=== PATIENT | male | born 1950 | race Caucasian/White ===

== ENCOUNTER 2019-04-11 12:08 | Outpatient (CLI) | payer MEDICARE, OTHER, SELFPAY ==
--- NOTE | ~2019-04-11 | XR_ITS ---
EXAMINATION: XR lumbar spine 2-3V DATE: 04/11/2019 12:25 INDICATION: Back pain TECHNIQUE: Anteroposterior and lateral views of the lumbar spine, and cone-down lateral view of the l umbosacral junction were obtained. COMPARISON: CT abdomen and pelvis dated 01/03/2018 FINDINGS: Mild lower lumbar dextrocurvature measuring approximately 8 degrees between L3 and S1. 3 mm retrolist hesis L5 on S1. Vertebral body heights are normal. Moderate disc height loss with vacuum phenomena at L5-S1. Remaining disc heights are relatively preserved. Moderate facet osteoarthritis bilaterally at L4-L5 and L5-S1 with mild facet osteoarthritis in the more cephalad lumbar spine. Sacral arches are intact. Mild bilateral sacroiliac osteoarthritis. Atherosclerotic aorta. IMPRESSION: 1. Mild to moderate lower lumbar predominant spondylosis. Reviewed, dictated and finalized at location A. 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
== END 2019-04-11 12:09 | disposition home or self-care (01) ==
LOC: CHSIMG 12:12
PROVIDERS: PCP Internal Medicine; Visit Provider Internal Medicine
DX: M54.9 Dorsalgia, unspecified (principal)
CPT/HCPCS: 72100

== ENCOUNTER 2019-04-17 12:45 | Outpatient (RCR) | payer MEDICARE, OTHER, SELFPAY ==
--- NOTE | 2019-04-17 16:43 | PTOPEVAL ---
Thank you for referring this patient to [facility]. Please review, sign, date and return this plan of care ADRIÁN. I agree with and certify that the following plan of care is medically necessary. Referring Physician Date Admitting Provider: Attending Provider: Obey Pineda MD Referring Provider: *PT Outpatient Evaluation Start: 04/17/19 13:06 Freq: Status: Active Protocol: Document 04/17/19 13:07 VIDHI (Rec: 04/17/19 14:06 [email or web address] [id number]) Therapy Assessment Status Assessment Status Assessment Status Evaluation Evaluation Information Problem Diagnosis back pain Onset 02/09/19 Subjective Information Pt. reports approximately 2 Query Text:As Reported By Patient/ months of uncontrollable back Family pain. He reports that pain is at the lower back and can radiate into the mid back. He report that pain is increased most with standing in one positon or sitting in one position. He reports that he roles at night in bed and cannot sleep well due to pain. He reports that he does take ibuprofen for pain, but does not ease his pain as well as it has in the past. He reports that his goal is to decrease his back pain. Prior Level of Function Activity Level (Last 3 Months) Hand Dominance Right Activity of Daily Living Ability Independent Indoor/Home Mobility Independent Community Mobility Independent Stairs Ability Independent Functional Cognition (Planning, Shopping Independent , Taking Medications) Cooking Yes Cleaning Yes Laundry Yes Shopping Yes Driving Yes Comments Additional Prior Level of Function Pt. reports that he can no Comments longer get onto the floor without pain and needs help to get up. Pain Assessment Pain Scale Pain Scale Used Numeric (1 - 10) Self Report Pain Assessment Lower Back Reported Pain Level 5 Pain Description Aching Pain Frequency Intermittent Current Pain Intensity 5 Lowest Pain Intensity 0 Greatest Pain Intensity 9 Pain Aggravating Factors Pr
--- NOTE | 2019-05-24 14:56 | PTOPEVAL ---
Thank you for referring this patient to [facility]. Please review, sign, date and return this plan of care ADRIÁN. I agree with and certify that the following plan of care is medically necessary. Referring Physician Date Admitting Provider: Attending Provider: Obey Pineda MD Referring Provider: *PT Outpatient Evaluation Start: 04/17/19 13:06 Freq: Status: Active Protocol: Document 05/24/19 14:46 J (Rec: 05/24/19 14:55 [facility] [email or web address]) Therapy Assessment Status Assessment Status Assessment Status Re-evaluation Evaluation Information Problem Diagnosis low back pain Additional Evaluation Detail oswestry = 46% Subjective Information mr. miguel reports he feels Query Text:As Reported By Patient/ better but about the same Family lately. he reports he has less pain, but still presents with difficulty with daily activities, getting up in the mornings, and randomly at night. Pain Assessment Timing of Pain Assessment Timing of Pain Assessment Assessment Pain Scale Pain Scale Used Numeric (1 - 10) Self Report Pain Assessment Lower Back Reported Pain Level 3 Greatest Pain Intensity 5 Pain Score Pain Score 3: Self Report Cervical and Lumbar ROM Lumbar ROM Lumbar Flexion Active Mid Boo Query Text:Hands to: Lumbar Extension (0-40) 20 Query Text:Active in Degrees Lumbar Lateral Flexion Right (0-40) 25 Query Text:Active in Degrees Lumbar Lateral Flexion Left (0-40) 25 Query Text:Active in Degrees Lumbar Comments patient is unable to squat to floor to lift a weighted box with safe mechanics or stable posture. Cervical and Lumbar Muscle Testing Lumbar Strength Upper Abdominal Strength 2+Poor+ Lower Abdominal Strength 2+Poor+ Lower Extremity Muscle Strength Testing Hip Strength Bilateral Hip Flexion Strength 4+ Good + Hip Extension Strength 4 Good Hip Abduction Strength 4 Good Knee Strength Bilateral Knee Flexion Strength 5 Normal Knee Extension Strength 5 Normal Muscle Length Testing Muscle Length Testing Piriformis w/Hip Flexion >90 Degrees (R) Moderate Tightness,(L) Moderate Tightness Left Hamstring Length 35 Query Text:(90 - 90 Position) Right Hamstring Length 35 Query Text:(90 - 90 Position) PT Clinical Summary Clinical Summary Protocol: PTEVCODE PT Clinical Summary mr
== END 2019-05-24 23:59 | disposition home or self-care (01) ==
LOC: CHSPT 12:45
PROVIDERS: PCP Internal Medicine; Visit Provider Internal Medicine
DX: M54.9 Dorsalgia, unspecified (principal)
CPT/HCPCS: 97014; 97110; 97161; G0283

== ENCOUNTER 2019-05-27 06:30 | Outpatient (CLI) | payer MEDICARE, OTHER, SELFPAY ==
--- NOTE | ~2019-05-27 | MR_ITS ---
EXAMINATION: MR lumbar spine wo con DATE: 05/27/2019 07:42 INDICATION: Back pain TECHNIQUE: Magnetic resonance imaging (MRI) of the lumbar spine was performed without intravenous con trast. Sequences included sagittal T2-weighted FSE, sagittal T2-weighted FS FSE, sagittal T1-weighted FSE, and axial T2-weighted FSE. COMPARISON: Lumbar spine radiographs dated 04/11/2019 FINDINGS: 1 mm retrolisthesis L3 on L4. 4 mm retrolisthesis L5 on S1. Vertebral body heights are normal. Genius red and yellow marrow signal. No pathologic marrow replacing process. Annular fissure and severe dis c height loss at L5-S1. Disc desiccation and minimal disc height loss at L3-L4 and L4-L5. The conus m edullaris terminates at L1. There is normal signal in the caudal spinal cord. Paravertebral soft tiss ues are unremarkable. The following disc levels are specifically discussed: T12-L1: The disc does not extend beyond the endplate margin. There is mild bilateral facet joint oste oarthritis. There is no neural foraminal stenosis. There is no central canal stenosis. L1-L2: The disc does not extend beyond the endplate margin. There is mild hypertrophy of the ligament um flavum. There is mild left and mild to moderate right facet joint osteoarthritis. There is minimal right neural foraminal stenosis. There is no central canal stenosis. L2-L3: The disc does not extend beyond the endplate margin. There is mild hypertrophy of the ligament um flavum. There is mild bilateral facet joint osteoarthritis. There is minimal bilateral neural for aminal stenosis. There is no central canal stenosis. L3-L4: Disc is minimally bulging. There is hypertrophy of the ligamentum flavum. There is mild to mod erate right and mild left facet joint osteoarthritis. There is mild bilateral neural foraminal stenos is. There is mild central canal stenosis. L4-L5: The disc does not extend beyond the endplate margin. There is moderate bilateral facet joint o steoarthritis. There is mild right and mild to moderate left neural foraminal stenosis. Mild anterior bulging of the posterior epidural fat. There is mild central canal stenosis. L5-S1: Annular fissure with broad-based disc extrusion which extends from foraminal zone to foraminal zone with disc material extending up to 7 mm caudal to the level of the superior endplate of S1 in t he left paracentral region. There is mild hypertrophy of the ligamentum flavum. There is moderate jazmín ateral facet joint osteoarthritis. There is moderate bilateral neural foraminal stenosis. There is mi ld anterior bulging of the posterior epidural fat. There is altered moderate central canal stenosis. There is also narrowing of the lateral recesses, left greater than right. IMPRESSION: 1. Severe spondylosis at L5-S1 with mild to moderate spondylosis in the more cephalad lumbar spine. Reviewed, dictated and finalized at location A. IMPRESSION: 1. Severe spondylosis at L5-S1 with mild to moderate spondylosis in the more ce phalad lumbar spine.
== END 2019-05-27 06:31 | disposition home or self-care (01) ==
PROVIDERS: PCP Internal Medicine; Visit Provider Internal Medicine
DX: M54.5 Low back pain (principal)
CPT/HCPCS: 72148

== ENCOUNTER 2019-07-04 21:04 | Observation (INO) | payer MEDICARE, OTHER, SELFPAY ==
[2019-07-04 21:23] VITALS: BP 140/90; PULSE 67; RESP 13; TEMP 35.9; O2SAT 99
--- NOTE | 2019-07-04 21:36 | ECG_ITS ---
Measurements Intervals [place] Rate: 68 P: 70 MA: 176 QRS: 74 QRSD: 102 T: 69 QT: 440 QTc: 470 Interpretive Statements SINUS RHYTHM BASELINE ARTIFACT- V1 NORMAL ECG Electronically Signed On 07-05-2019 7:29:23 CDT by Daniel Jones D.O.
[2019-07-04 21:56] LABS: Basophils Absolute Auto 0.05 K/mm3 (0.00-0.10); Basophils Percent Auto 0.6 % (0.0-1.0); Eosinophils Absolute Auto 0.18 K/mm3 (0.02-0.50); Eosinophils Percent Auto 2.3 % (1.0-6.0); Hematocrit 34.8 % (37.0-46.0); Hemoglobin 12.6 g/dL (12.4-15.3); Immature Granulocyte Absolute 0.03 K/mm3 (0.00-0.00); Immature Granulocyte Percent A 0.4 % (0.0-0.0); Lymphocytes Absolute Auto 0.94 K/mm3 (1.10-4.50); Lymphocytes Percent Auto 12.1 % (18.0-42.0); Mean Corpuscular HGB Conc 36.2 g/dL (32.0-36.0); Mean Corpuscular Hemoglobin 33.4 pg (27.0-31.0); Mean Corpuscular Volume 92.3 fL (78.0-102.0); Mean Platelet Volume 7.9 fl (8.7-11.0); Monocytes Percent Auto 6.4 % (2.0-11.0); Neutrophils Absolute Auto 6.1 K/mm3 (1.7-7.2); Neutrophils Percent Auto 78.2 % (50.0-70.0); Platelet Count Result 273 K/mm3 (150-420); Red Blood Count 3.77 M/mm3 (4.70-6.10); Red Cell Distribution Width 11.7 % (11.6-14.4); White Blood Count 7.8 K/mm3 (4.8-10.8)
[2019-07-04 21:56] LABS: Add Urine Microscopic? YES; Appearance Urine Clear (Clear); Bilirubin Urine Negative (Negative); Blood Urine Negative (Negative); Color Urine Yellow (Yellow); Glucose Urine UA 1+ (Negative); Ketones Urine Negative (Negative); Leukocyte Esterase Ur Negative (Negative); Nitrate Urine Negative (Negative); Protein Urine Negative (Negative); Urobilinogen Urine 0.2 mg/dL (0.2-1.0)
[2019-07-04] MEDS: DEXTROSE 10% 250 ML 100 ML (21:59)
[2019-07-04 22:02] LABS: Bacteria Urine Trace /hpf; RBC Urine 0-2 /hpf (0-2); Squamous Epithelial Cell Urine Rare /hpf (Few); WBC Urine 0-3 /hpf (0-3)
[2019-07-04 22:10] LABS: Alanine Aminotransferase 26 U/L (16-63); Alkaline Phosphatase 113 U/L (46-116); Anion Gap 9.7 mmol/L (7-16); Aspartate Amino Transferase 26 U/L (15-37); Bilirubin,Total 0.2 mg/dL (0.00-1.00); Blood Urea Nitrogen 5 mg/dL (7-18); Calcium 8.1 mg/dL (8.5-10.1); Carbon Dioxide 32 mmol/L (21-32); Chloride 85 mmol/L (98-108); Estimated CRCL calculation 91 ml/min; Estimated Glomerular Filt Rate > 60; Osmolality Calculated 252 mOsm/kg (285-295); Potassium 2.7 mmol/L (3.5-5.1); Sodium 124 mmol/L (136-145); Total Protein 5.9 g/dL (6.4-8.2)
[2019-07-04 22:12] LABS: Glucose 47 mg/dL (70-99)
--- NOTE | 2019-07-04 22:17 | ED.GENADULT ---
HPI - General Adult General Chief complaint: Recheck/Abnormal Lab/Rx Stated complaint: amb Source: patient Mode of arrival: EMS Limitations: no limitations History of Present Illness HPI narrative: 68 y.o. IDDM x 20 yrs was admitted with a hypoglycemic episode. He uses an insulin pump. The hypoglycemic sensor alarm went off at around 8:57 PM this evening. His found him unresponsive. She didn't use glucagon because it was . EMS glucose reading at abouit 9:20 was less than 20. Pt. awoke after being given D10. EMS was contacted. He uses 24.1 basal units of lispro and 23 units of bolus lispro daily. Review of his insulin pump data points showed his blood sugar at 3:07 PM was 3:07. Lispro 8.7 units was given. Pump readings report that he was in his target glucose region 44% of the day, below 6% of the day. Cliff doesn't remember eating today. This evening he was resting while waiting for a subway sandwich. He remembers driving to multiple places today. After arriving home. He states he had no appetite today and has felt worn out for the last week. But othewise has had no symptoms of illness. Related Data Home Medications Medication Instructions Recorded Confirmed aspirin [Adult Low Dose Aspirin] 81 mg PO DAILY 07/04/19 07/04/19 duloxetine 20 mg PO BID 07/04/19 07/04/19 fluticasone propion-salmeterol 1 ea INHALATION BID 07/04/19 07/04/19 [Advair Diskus] insulin lispro [Humalog U-100 0 unit SUBCUT DAILY 07/04/19 07/04/19 Insulin] ipratropium-albuterol [Combivent 1 puff INHALATION QID 07/04/19 07/04/19 Respimat] loratadine 10 mg PO DAILY 07/04/19 07/04/19 losartan-hydrochlorothiazide 1 tablet PO DAILY 07/04/19 07/04/19 montelukast 10 mg PO DAILY 07/04/19 07/04/19 multivit with min-folic acid 0.4 mg PO DAILY 07/04/19 07/04/19 [Adult One Daily Multivitamin] pantoprazole 40 mg PO DAILY 07/04/19 07/04/19 pravastatin 10 mg PO DAILY 07/04/19 07/04/19 primidone 50 mg PO BID 07/04/19 07/04/19 verapamil 240 mg PO HS 07/04/19 07/04/19 Allergies Allergy/AdvReac Type Severity Reaction Status Date / Time No Known Allergies Allergy Unverified 01/04/18 11:39 Review of Systems Constitutional: Constitutional: Reports no additional constitutional complaints, Denies chills and Denies fever(s) Eyes: Eyes: Denies photophobia ENT: Denies dizziness and Denies sore throat Cardiovascular: Cardiovascular: Denies chest pain Respiratory: Respiratory: Denies cough and Denies dyspnea Gastrointestinal: Gastrointestinal: Denies abdominal pain, Reports constipation, Denies nausea and Denies vomiting Genitourinary: Genitourinary: Denies dysuria Musculoskeletal: Comments: large joint pain at times related to activities, chronic Integumentary/Breasts: Skin/Breast: Denies rash and Denies skin ulcer Neurologic: Comments: decreased sensation in feet Endocrine: Endocrine: Reports polyuria Hematologic/Lymphatic: Hematologic/Lymphatic: Denies easy bleeding Allergic/Immunologic: Allergic/Immunologic: Denies wheezing PMFSH Past Medical History Medical History Elevated blood pressure reading in office with diagnosis of hypertension GERD (gastroesophageal reflux disease) Hyperlipidemia Family History Family History Other Diabetes mellitus Family history of alcoholism Social History Social History (Updated 07/05/19 @ 00:36 by Zach Henriquez MD) Smoking packs per day: 2 Smoking cigarettes per day: 40.0 Years smoked: 40 Smoking pack-years: 80.00 Smoking status: Former smoker Tobacco type: cigarettes Second hand tobacco smoke exposure: Yes Smoking end date: 03/08/10 Alcohol intake: current Drinks per week: 21 Substance use: never Substance use type: does not use Living arrangements: with family Gender identity (if verbalized by the patient): Male Spiritual care concerns: No Agree
[2019-07-04 22:19] LABS: Troponin I < 0.02 ng/mL (0.00-0.056)
[2019-07-04 23:09] VITALS: BP 132/76; PULSE 79; RESP 15; O2SAT 98
[2019-07-04 23:10] LABS: Glucose Point of Care 193 (65-105)
--- NOTE | 2019-07-04 23:11 | PC.NURSE ---
RN REQUESTED OBS TELE ROOM FOR PATIENT AT 2156. ROOM 203 PROVIDED. REGISTRATION NOTIFIED. TELEPHONE REPORT CALLED TO BARAK MARIN ACCEPTING NURSE AT 8600.
[2019-07-04] MEDS: POTASSIUM CHLORIDE 20 MEQ TABLET 40 MEQ PO (23:23)
[2019-07-04 23:42] VITALS: BP 113/70; PULSE 75; RESP 20; TEMP 36.9; O2SAT 94
[2019-07-04 23:45] LABS: Magnesium 1.8 mg/dL (1.8-2.4)
[2019-07-04 23:55] VITALS: BMI 27.2
--- NOTE | 2019-07-04 23:55 | ADMGEN ---
This patient, Cliff Rodriguez, was admitted to 2nd Floor Room 203-2. Patient/family oriented to hospital policies and general routines including ID bracelet, bed and alarms, visiting hours, pain management, procedures, bathroom and other care routines, personal items, smoking policy, room service/diet, and visiting hours. Valuables list has been completed. Information on how to activate the Rapid Response Team has been discussed. Patient/Family are encouraged to report perceived risks to care and to ask questions if they do not understand what they are told or what they should do.
[2019-07-05] VITALS (14 sets, daily range): BP systolic 118–157; BP diastolic 72–87; PULSE 81–92; RESP 18–24; TEMP 36.3–36.8; O2SAT 97–99
--- NOTE | 2019-07-05 00:12 | PC.NURSE ---
Patient admitted to room 203 from ER. Patient has insulin pump on and blood glucose sensor attached to abdomen. Patient is alert and oriented. His gait is unsteady. He ambulated to the bathroom upon arrival to the room. Patient has an 18 gauge IV in his left forearm. He has glasses and bilateral hearing aids at bedside. He has no teeth and he does not wear his dentures.
--- NOTE | 2019-07-05 00:38 | PC.NURSE ---
Contacted Dr. Henriquez to clarify medication orders.
[2019-07-05 01:04] LABS: Glucose Point of Care 186 (65-105)
--- NOTE | 2019-07-05 01:26 | PC.NURSE ---
Contacted Dr. Henriquez to clarify orders.
[2019-07-05] MEDS: SODIUM CHLORIDE 0.9% IV 1,000 ML 100 ML IV CONT (01:47)
--- NOTE | 2019-07-05 02:11 | PC.NURSE ---
[address] Henriquez to verify orders.
--- NOTE | 2019-07-05 03:48 | PC.NURSE ---
Contacted Dr. Henriquez to clarify orders.
[2019-07-05 05:44] LABS: Hemoglobin A1C 7.7 % (<5.7)
[2019-07-05 06:10] LABS: Anion Gap 9.5 mmol/L (7-16); Blood Urea Nitrogen 6 mg/dL (7-18); Calcium 8.7 mg/dL (8.5-10.1); Carbon Dioxide 32 mmol/L (21-32); Chloride 86 mmol/L (98-108); Estimated CRCL calculation 78 ml/min; Estimated Glomerular Filt Rate > 60; Glucose 117 mg/dL (70-99); Osmolality Calculated 256 mOsm/kg (285-295); Potassium 3.5 mmol/L (3.5-5.1); Sodium 124 mmol/L (136-145)
[2019-07-05 06:19] LABS: Glucose Point of Care 102 (65-105)
[2019-07-05 06:19] LABS: Glucose Point of Care 203 (65-105)
[2019-07-05 06:19] LABS: Glucose Point of Care 178 (65-105)
[2019-07-05 06:19] LABS: Glucose Point of Care 155 (65-105)
--- NOTE | 2019-07-05 06:19 | ECG_ITS ---
Measurements Intervals [place] Rate: 87 P: 67 LA: 171 QRS: 78 QRSD: 98 T: 68 QT: 369 QTc: 445 Interpretive Statements SINUS RHYTHM NORMAL ECG Electronically Signed On 07-05-2019 7:28:08 CDT by Daniel Jones D.O.
[2019-07-05 06:26] LABS: Troponin I 0.02 ng/mL (0.00-0.056)
[2019-07-05 08:00] LABS: Glucose Point of Care 118 (65-105)
[2019-07-05] MEDS: SALMET XINAFT/FLUTIC PROPIN 250 MCG/50 MCG INH CAP 1 PUFF INHALATION (08:28)
[2019-07-05] MEDS: PANTOPRAZOLE 40 MG TABLET PO (08:29)
[2019-07-05] MEDS: DULOXETINE HCL 20 MG CAPSULE.DR PO (08:29)
[2019-07-05] MEDS: LOSARTAN POTASSIUM 50 MG TABLET 100 MG PO (08:29)
[2019-07-05] MEDS: MONTELUKAST SODIUM 10 MG TABLET PO (08:29)
[2019-07-05] MEDS: PRIMIDONE 50 MG TABLET PO (08:29)
[2019-07-05] MEDS: THERAPEUTIC MULTIVITAMINS/MINERALS TAB (*BKC) 1 TABLET PO (08:29)
[2019-07-05] MEDS: ASPIRIN 81 MG ENTERIC TABLET PO (08:30)
[2019-07-05] MEDS: POTASSIUM CHLORIDE 20 MEQ TABLET 40 MEQ PO (08:30)
[2019-07-05] MEDS: LORATADINE 10 MG TABLET PO (08:30)
[2019-07-05 09:50] LABS: Glucose Point of Care 279 (65-105)
[2019-07-05 12:04] LABS: Glucose Point of Care 245 (65-105)
--- NOTE | 2019-07-05 12:43 | PM.IMHP ---
H&P: HPI History of Present Illness Chief complaint: amb Narrative: Cliff Rodriguez is a 68 year old male admitted yesterday due to a significant hypoglycemic episode at his home. His hypoglycemia sensor on his implanted pump went off around 9:00 a.m. last night. His found him unresponsive. She did use the home glucagon because it was . EMS arrived and checked his glucose around 9:20 p.m. and found to be less than 20. The patient was given D10 and woke up himself. He states that he did not eat anything yesterday and probably give himself too much insulin. His pump has a basal rate as well as a bolus amount that he can't give himself for insulin dosing. He states that he was waiting for his dinner of [employer] to arrive and decided to take a nap but then stated that his to not wake up when the food arrived and so he therefore became hypoglycemic due to no food. Today he states that he is feeling better and back to himself, possibly a little wobbly yet. I have ordered PT and OT to see him today. After they saw him they felt he was safe to go home, but that he would benefit greatly from outpatient physical therapy after discharge. He denies chest pain shortness of breath headache, abdominal pain, is eating and drinking well, and ambulating well. He does have a chronic tremor of his upper extremities, that he stated he has had for a while. He has a history of an appendectomy, COPD, type 1 diabetes, hypertension, hyperlipidemia, right adrenal mass - all this history information was gained from a discharge note scanned into our medical records. When I asked him about this adrenal mass, he stated he was not sure what I was talking about. I told him that with his low sodium level and his possible history of a right adrenal mass, that he needs to follow-up with his primary care provider Dr. Pineda for further discussion and testing. He is not having abdominal pain, abdominal distension, or constipation. He is voiding and having bowel movements without blood or discomfort, and has both voiding and stooled already this morning. His glucose checks have been every hour and stable. Changed to every 2 hours this afternoon and continue to be stable. His lowest glucose check was 103 today. His highest was around 240. We will continue his insulin pump at his current rate and encouraged him to contact his [facility] wellness [facility] for follow-up after discharge. He is eating and drinking well while he has been hospitalized. I called his primary care provider and he agreed that we should hold the hydrochlorothiazide as this could be contributing to his low sodium levels, and will continue him on losartan alone for blood pressure control. I have ordered repeat labs for today and for Wednesday to ensure that his sodium level is not getting any worse. His other vital signs have remained stable with no fevers heart rate 60s to 80s pulse ox between 94-99% on room air. His orthostatic blood pressures today were all within 10-15 points of each other and he denied lightheadedness and dizziness. He has been on a carb consistent diet and we are not restricting his sodium. It was noted that in December of 2017 his sodium was 130, again in March of 2019 his sodium was 130. I have discussed this low sodium level with Dr. wynne and the fact that I ready had a right adrenal mass in his history, and Dr. Pineda agreed that he would follow-up on these concerns with the patient. We do not have MRI capability at the hospital today, MRI scan only be completed on Saturdays. And I currently have no CT scan in my possession that shows an adrenal mass. As I said earlier in this note it was based on discharge notes from an outside hospital. His UA did not show evidence of UTI. And his last A1c was 7.7. With his neuro status checks remaining within normal limits, and his general status returning to normal function and abilities shortly after his hypoglycemia was resolve
--- NOTE | 2019-07-05 13:38 | PM.DS ---
DS: Diagnosis Admitting Diagnosis Admitting Diagnosis: Type 1 diabetes mellitus with hyperglycemia Discharge Diagnosis (1) Hypokalemia: Code(s): E87.6 - Hypokalemia Status: Acute Assessment and Plan: His potassium was 2.7 at admission, than 3.5 this morning than 4.5 this afternoon. He does not take potassium at home. He was taking hydrochlorothiazide at home in combination with his losartan. This could help to explain his hypokalemia. Potassium could have also been used up with too much insulin being dosed. At home. He also was not eating well at home, so his potassium levels may not have been getting replenished through normal daily nutrition. RESOVED. (2) Hyponatremia: Code(s): E87.1 - Hypo-osmolality and hyponatremia Status: Acute Assessment and Plan: His sodium level at admission was 124, when his labs were repeated this morning it was again 124, and again this afternoon his sodium was 124. This was all despite receiving IV sodium chloride and also being on a fluid restriction. This appears to be somewhat chronic in nature, as his sodium levels in January 042017 was 130, then on January 05, 2018 was 134. April [id number] his sodium level was again 130. This may have something to do with his history of an adrenal mass and/or mineral corticoid deficiency and/or history of alcohol use (per PCP Dr. Pineda), if that is the case, the patient should follow-up with his primary care provider for further workup. he is currently hemodynamically stable with maps greater than 60 systolics greater than 100 and heart rates between 60-90 he denies lightheadedness, dizziness, chest pain, chest pressure, headache, abdominal pain, vision changes, dizziness, and denies any seizure-like activity for the last week. He states that he has a chronic tremor to both of his hands and arms. (3) Hypoglycemia associated with diabetes: Code(s): E11.649 - Type 2 diabetes mellitus with hypoglycemia without coma Status: Acute Assessment and Plan: His glucose has been controlled, not low throughout the morning in day, ranging from 100 to 240s. He has been eating 50% or more of his meals. He denies lightheadedness or dizziness today. He denies any glucometer malfunctioning at home. He denies any insulin pump malfunction. He was demonstrating to me today how he checks his insulin pump dosing, and how he calculates his insulin dosing with his meals. He sees an order checker at the [place] for his diabetes management. I have instructed him to follow-up with his order checker within the next few days. I have advised him in his discharge orders to continue to have a snack or meal at least every 2-4 hours. His neuro checks and orthostatic blood pressures and heart rates have been within normal limits, and without concerning deficits. He denies any concerns and will be discharged Later today. DS: Summary Time Spent with Patient Time attestation: Total time spent providing and/or coordinating discharge services: >60 min Exam Const: General: comfortable, no acute distress and alert; No in distress or confusion Orientation/consciousness: patient oriented x3 and No confusion Other: Hard of hearing, corrected with hearing aids. HENMT: Head: normal to inspection General nose exam: no nasal discharge noted Mouth: Yes Normal oral and palatal mucosa present Eyes: General: appearance normal, both eyes and all related structures Pupils: Equal, round and reactive pupils present EOM: EOMs intact bilaterally Direct Ophthalmoscopy: No photophobia Neck: Neck: normal visual inspection and no lymphadenopathy Chest: Chest palpation & inspection: normal inspection of the chest Resp: Auscultation: clear to auscultation bilaterally Cardio: Rate: regular rate, not bradycardic and not tachycardic Rhythm: regular rhythm and regular rhythm Heart sounds: no murmurs GI: In
[2019-07-05 14:05] LABS: Anion Gap 12.5 mmol/L (7-16); Blood Urea Nitrogen 8 mg/dL (7-18); Calcium 8.7 mg/dL (8.5-10.1); Carbon Dioxide 27 mmol/L (21-32); Chloride 89 mmol/L (98-108); Estimated CRCL calculation 68 ml/min; Estimated Glomerular Filt Rate > 60; Glucose 250 mg/dL (70-99); Osmolality Calculated 264 mOsm/kg (285-295); Potassium 4.5 mmol/L (3.5-5.1); Sodium 124 mmol/L (136-145)
[2019-07-05] MEDS: ACETAMINOPHEN 500 MG TABLET 1000 MG PO (15:47)
[2019-07-05] MEDS: LIDOCAINE 5% PATCH 2 PATCH TRANSDERM (15:49)
--- NOTE | 2019-07-05 19:23 | PM.EVENT ---
Event Note Event Note Event Note: Patient states he feels much better today. He is eating breakfast. Alert and oriented to self and year. No acute distress. Mucous membranes moist. Regular rate rhythm without murmur rub or gallop. Distal pulses are full and symmetric in extremities are warm dry and pink. Lungs are clear to auscultation bilaterally. Abdomen is soft and nontender. Patient's blood sugars have been stable on his insulin pump and oral diet. Discharge home today with close follow-up. I have examined the patient reviewed the chart. I discussed patient's care with A Brett OLMEDO and agree with her assessment and plan.
[2019-07-06 08:34] LABS: Glucose Point of Care 80 (65-105)
[2019-07-06 08:44] LABS: Glucose Point of Care 87 (65-105)
[2019-07-06 08:45] LABS: Glucose Point of Care 68 (65-105)
== END 2019-07-05 17:05 | disposition home or self-care (01) ==
LOC: CHSED 21:08 → CHS2ND 22:53
PROVIDERS: Nurse Practitioner; Admitting Provider Family Medicine; Emergency Provider Family Medicine; PCP Internal Medicine; Visit Provider Family Medicine
DX: E11.649 Type 2 diabetes mellitus with hypoglycemia without coma (principal); E87.1 Hypo-osmolality and hyponatremia; E87.6 Hypokalemia; I10 Essential (primary) hypertension; K21.9 Gastro-esophageal reflux disease without esophagitis; E78.5 Hyperlipidemia, unspecified; Z79.4 Long term (current) use of insulin; Z96.41 Presence of insulin pump (external) (internal); Z87.891 Personal history of nicotine dependence
CPT/HCPCS: 36415; 80048; 80053; 81001; 83036; 83735; 84484; 85025; 93005; 96360; 96361; 96365; 97161; 97165; 99285; A9270; G0378; J7030

== ENCOUNTER 2019-07-11 10:43 | Outpatient (CLI) | payer MEDICARE, SELFPAY ==
[2019-07-11 10:56] LABS: Basophils Absolute Auto 0.07 K/mm3 (0.00-0.10); Basophils Percent Auto 0.6 % (0.0-1.0); Eosinophils Absolute Auto 0.17 K/mm3 (0.02-0.50); Eosinophils Percent Auto 1.4 % (1.0-6.0); Hemoglobin 14.1 g/dL (12.4-15.3); Immature Granulocyte Absolute 0.09 K/mm3 (0.00-0.00); Immature Granulocyte Percent A 0.7 % (0.0-0.0); Lymphocytes Percent Auto 9.1 % (18.0-42.0); Mean Corpuscular HGB Conc 35.3 g/dL (32.0-36.0); Mean Corpuscular Hemoglobin 33.4 pg (27.0-31.0); Mean Corpuscular Volume 94.8 fL (78.0-102.0); Mean Platelet Volume 8.1 fl (8.7-11.0); Monocytes Absolute Auto 0.96 K/mm3 (0.10-0.90); Monocytes Percent Auto 7.9 % (2.0-11.0); Neutrophils Absolute Auto 9.7 K/mm3 (1.7-7.2); Neutrophils Percent Auto 80.3 % (50.0-70.0); Platelet Count Result 278 K/mm3 (150-420); Red Blood Count 4.22 M/mm3 (4.70-6.10); Red Cell Distribution Width 12.3 % (11.6-14.4); White Blood Count 12.1 K/mm3 (4.8-10.8)
[2019-07-11 11:13] LABS: Alanine Aminotransferase 27 U/L (16-63); Albumin Level 3.3 g/dL (3.4-5.0); Alkaline Phosphatase 131 U/L (46-116); Anion Gap 11.9 mmol/L (7-16); Aspartate Amino Transferase 29 U/L (15-37); Bilirubin,Total 0.5 mg/dL (0.00-1.00); Blood Urea Nitrogen 12 mg/dL (7-18); Calcium 8.4 mg/dL (8.5-10.1); Carbon Dioxide 29 mmol/L (21-32); Chloride 85 mmol/L (98-108); Estimated Glomerular Filt Rate > 60; Glucose 130 mg/dL (70-99); Osmolality Calculated 253 mOsm/kg (285-295); Potassium 4.9 mmol/L (3.5-5.1); Sodium 121 mmol/L (136-145); Total Protein 6.3 g/dL (6.4-8.2)
== END 2019-07-11 10:44 | disposition home or self-care (01) ==
PROVIDERS: PCP Internal Medicine; Visit Provider Nurse Practitioner
DX: E87.1 Hypo-osmolality and hyponatremia (principal)
CPT/HCPCS: 36415; 80053; 85025

== ENCOUNTER 2019-07-14 11:35 | Inpatient (IN) | payer MEDICARE, OTHER, SELFPAY ==
[2019-07-14] VITALS (7 sets, daily range): BP systolic 107–153; BP diastolic 60–74; PULSE 81–101; RESP 15–24; TEMP 36.4–36.9; O2SAT 88–100; BMI 27.6
--- NOTE | ~2019-07-14 | CT_ITS ---
EXAMINATION: CT abdomen pelvis w con EXAM DATE: 07/18/2019 22:44 INDICATION: Acute onset low abdominal pain. Constipation. TECHNIQUE: Spiral CT of the abdomen and pelvis was performed following intravenous injection of 100 m L Omnipaque 350. Axial, coronal and sagittal images were reviewed. The dose-length product (DLP) fo r this examination was 1144.07 mGy-cm. The exposure was tailored according to patient size (auto mA exposure control), and iterative reconstruction (ASIR) was used as additional dose reduction techniqu e. Comparison is made to prior examination from 07/17/2019. FINDINGS: There is continued interval progression in the amount of distention of the cecum out of to 8 cm, progression the distention of the ileum, with focal stricturing suspected at the hepatic flexur e for approximately 5 cm segment, could be a focal adenocarcinoma but the wall only appears mildly th ickened. There is stool distal to this indicating that it is not completely obstructing. There is no pneumatosis. Small amount of ascites. Some fat stranding within the mesentery. Small umbilical fat-co ntaining hernia. The liver, spleen, adrenal glands and pancreas are unremarkable. Gallbladder is unremarkable. No bi liary obstruction. Portal and splenic veins are patent. Kidneys enhance symmetrically. There is no hydronephrosis. The prostate is unremarkable. The bladder is unremarkable. There is no retroperi toneal or pelvic lymphadenopathy. There is moderate scattered arteriosclerotic disease. The heart is normal in size. There are no pericardial or pleural effusions. Faint groundglass opaci ties at the lung bases and reticulonodular opacities likely infectious process unchanged. There are no osteoblastic or osteolytic lesions identified. IMPRESSION: 1. Continued progression in cecal and small bowel distention, with strictured appearance to the sple daina flexure which could be a focal adenocarcinoma causing partial colonic obstruction. Enteritis also possible. 2. Faint groundglass opacities at the lung bases and reticulonodular opacities likely infectious pro cess unchanged. Reviewed, dictated and finalized at location G. IMPRESSION: 1. Continued progression in cecal and small bowel distention, with strictured appearance to the splenic flexure which could be a focal adenocarcinoma causing partial colonic obstruction. Enteritis also possible. 2. Faint groundglass opacities at the lung bases and reticulonodular opacities likely infectious process unchanged.
--- NOTE | ~2019-07-14 | XR_ITS ---
EXAMINATION: XR chest 1V portable DATE: 07/17/2019 10:16 INDICATION: Lethargy. Elevated CRP. TECHNIQUE: A single frontal view of the chest was obtained. COMPARISON: Chest single view 07/16/2019, CT abdomen and pelvis 07/14/2019 FINDINGS: There are mild airspace opacities in right mid and lower lung zones. No pleural effusion or pneumothorax. The heart size is normal. IMPRESSION: 1. Mild airspace opacities in right mid and lower lung zones with improvement, consistent with pneumo yoli. Reviewed, dictated and finalized at location A. IMPRESSION: 1. Mild airspace opacities in right mid and lower lung zones with improvement, consistent with pneumonia.
--- NOTE | ~2019-07-14 | CT_ITS ---
EXAMINATION: CT abdomen pelvis w con INDICATION: Abdominal distention and leukocytosis TECHNIQUE: Computed tomographic images of the abdomen and pelvis were obtained after the administrati on of 100 cc of Omnipaque 350 intravenous contrast. The dose-length product (DLP) was 1115.25 mGy-cm. Automated exposure control and iterative reconstruction technique were employed. COMPARISON: 07/14/2019 FINDINGS: Patchy groundglass and nodular opacities of the visualized lung bases persist but have impr piedad. The heart size is normal. A punctate calcification of the left hepatic lobe likely reflects old granulomatous disease. The liver is otherwise unremarkable. The spleen, pancreas, gallbladder, and l eft adrenal gland are normal. An 11 mm nodule of the right adrenal gland likely represents an adenoma in the absence of known malignancy. The kidneys are unremarkable. There is overall interval improvem ent in small and large bowel distention described on the comparison CT. There is however a large volu me of stool in the ascending colon. There is mild persistent distention of the terminal ileum with sm all bowel feces sign, otherwise no persistent dilated loops of small bowel are evident. There is no f ree intraperitoneal gas. No pathologically enlarged abdominal or pelvic lymph nodes are identified. T here is severe lumbar spondylosis at L5-S1. IMPRESSION: 1. Overall improvement in large and small bowel distention with large amount of persistent stool in t he ascending colon and terminal ileum. Findings likely represent resolving enteritis 2. Persistent but improved groundglass opacities of the visualized lung bases, consistent with resolv ing pneumonia. Reviewed, dictated and finalized at location A. IMPRESSION: 1. Overall improvement in large and small bowel distention with large amount of persistent stool in the ascending colon and terminal ileum. Findings likely re present resolving enteritis 2. Persistent but improved groundglass opacities of the visualized lung bases, consistent with resolving pneumonia.
--- NOTE | ~2019-07-14 | CT_ITS ---
EXAMINATION: CT brain wo/w con DATE: 07/17/2019 14:39 INDICATION: Mental status change. TECHNIQUE: Computed tomography (CT) of the head was performed without and with 100 mL Omnipaque 350 i ntravenous contrast. The mA was adjusted according to patient size. Iterative reconstruction techniqu e was employed. The dose-length product was 1210.66 mGy-cm. COMPARISON: Head CT 04/29/2018 FINDINGS: There is no intracranial hemorrhage, acute infarction, or abnormal intracranial mass lesion . The ventricles are normal in size. There is mild mucosal thickening in the ethmoid sinuses. The orb its are normal. The mastoid air cells are normal. IMPRESSION: 1. Normal brain. Reviewed, dictated and finalized at location A. IMPRESSION: 1. Normal brain.
--- NOTE | ~2019-07-14 | CT_ITS ---
EXAMINATION: CT abdomen pelvis wo con DATE: 07/14/2019 12:31 INDICATION: Nausea, vomiting, abdominal pain and distention. TECHNIQUE: Computed tomography (CT) of the abdomen and pelvis was performed without intravenous contr ast. Automated exposure control and iterative reconstruction technique were employed. The dose-length product was 683.86 mGy-cm. COMPARISON: None FINDINGS: Numerous groundglass opacities in the right middle and lower lobes with centrilobular predominance fa voring endobronchial spread of disease most likely either aspiration or pneumonia. Left lung bases cl ear. Heart size is normal. Atherosclerotic coronary artery calcification. No pericardial or pleural e ffusion. Calcification in the left hepatic lobe consistent with old granulomatous disease. Gallbladde r, spleen, pancreas, bilateral adrenal glands and kidneys are normal. There is fluid throughout the s mall bowel which measures up to 4.0 cm in maximal diameter and the proximal jejunum which tapers grad ually to a normal caliber the mid small bowel and with a few small segments of intermittent decompres chasity in the distal small bowel. No discrete transition point to suggest obstruction. The appendix is not visualizedand there is a suture line at the tip the appendix suggesting prior appendectomy. Bladd er is normal. Prostatomegaly. Fat-containing right inguinal hernia. Small amount of ascites scattered throughout the mesentery and in the pelvis. No abscess or free intraperitoneal gas or fluid. Moderat e to severe lower lumbar spondylosis. IMPRESSION: 1. Fluid distention of the small and large bowel without discrete transition point to suggest obstruc tion suggesting diarrhea in the setting of gastroenteritis. 2. Multiple centrilobular groundglass opacities in the right middle and lower lobes which favors aspi ration and/or pneumonia. The pattern of pneumonia would be atypical for COVID-19. 3. Small amount of likely reactive ascites. 4. Prostatomegaly. 5. Fat-containing right inguinal hernia. Reviewed, dictated and finalized at location A. IMPRESSION: 1. Fluid distention of the small and large bowel without discrete transition po int to suggest obstruction suggesting diarrhea in the setting of gastroenteriti s. 2. Multiple centrilobular groundglass opacities in the right middle and lower l obes which favors aspiration and/or pneumonia. The pattern of pneumonia would b e atypical for COVID-19. 3. Small amount of likely reactive ascites. 4. Prostatomegaly. 5. Fat-containing right inguinal hernia.
--- NOTE | ~2019-07-14 | XR_ITS ---
EXAMINATION: XR chest 1V portable DATE: 07/18/2019 13:41 INDICATION: Leukocytosis. TECHNIQUE: A single frontal view of the chest was obtained. COMPARISON: Chest single view 07/17/2019, CT abdomen and pelvis 07/17/2019 FINDINGS: The chest demonstrates clear lungs without pneumonia, pleural effusion, or pneumothorax. Th e heart size is normal. IMPRESSION: 1. No acute cardiopulmonary disease. Reviewed, dictated and finalized at location A.
--- NOTE | ~2019-07-14 | US_ITS ---
EXAMINATION: US carotid duplex BI DATE: 07/19/2019 08:32 INDICATION: Cerebral vascular accident. TECHNIQUE: Grayscale, color Doppler, and pulsed Doppler images of the cervical carotid arteries were obtained. The degree of vessel stenosis is placed in one of the following categories: normal, <50%, 5 0-69%, >=70% but less than near-occlusion, near-occlusion, or total occlusion. Note that percent sten osis relative to normal distal artery lumen diameter is indirectly measured from velocity measurement s as described by Rob, et al. Radiology 2003; [id number]. COMPARISON: None. FINDINGS: RIGHT: The right common carotid artery (CCA) peak systolic velocity (PSV) is 87 cm/s. The right internal car otid artery (ICA) PSV is 74 cm/s. The right ICA end-diastolic velocity (EDV) is 8 cm/s. The right ICA /CCA PSV ratio is 0.9. Grayscale and color Doppler images yield an estimate of <50% diameter reductio n from plaque in the ICA. There is antegrade flow in the right vertebral artery. LEFT: The left CCA PSV is 77 cm/s. The left ICA PSV is 70 cm/s. The left ICA EDV is 21 cm/s. The left ICA/C CA PSV ratio is 0.9. Grayscale and color Doppler images yield an estimate of <50% diameter reduction from plaque in the ICA. There is antegrade flow in the left vertebral artery. IMPRESSION: 1. <50% stenosis in the right internal carotid artery. 2. <50% stenosis in the left internal carotid artery. Reviewed, dictated and finalized at location A.
--- NOTE | ~2019-07-14 | XR_ITS ---
XR chest 1V portable DATE: 07/16/2019 11:08 INDICATION: Leukocytosis TECHNIQUE: Portable AP chest on 07/16/2019 at 1054 hours COMPARISON: 04/29/2018 AP chest FINDINGS: There is patchy infiltrate in the right mid and lower lung zones, suggesting pneumonia give n the finding of leukocytosis. Left lung is clear. No pleural effusion or pulmonary vascular congestion or pneumothorax. Normal heart size. No hilar or mediastinal enlargement. Mild aortic calcification and unfolding. IMPRESSION: Patchy right mid and lower lung infiltrates suggesting pneumonia Reviewed, dictated and finalized at location A.
--- NOTE | 2019-07-14 11:45 | PC.NURSE ---
INSULIN PUMP REMOVED
--- NOTE | 2019-07-14 12:04 | ECG_ITS ---
Measurements Intervals [place] Rate: 83 P: 67 MO: 154 QRS: 75 QRSD: 94 T: 61 QT: 362 QTc: 426 Interpretive Statements SINUS RHYTHM BORDERLINE ST ABNORMALITY- ANTEROLAT/INF LEADS BORDERLINE ECG Electronically Signed On 07-14-2019 13:29:39 CDT by Daniel Jones D.O.
[2019-07-14] MEDS: SODIUM CHLORIDE 0.9% IV 1,000 ML 999 ML IV CONT (12:05)
--- NOTE | 2019-07-14 12:19 | ED.ABDPAIN ---
HPI - Abdominal Pain General Chief Complaint: Abdominal Pain Stated Complaint: sent over per doctor Source: patient History of Present Illness HPI narrative: Pt states that he has been having ab pain for last several weeks, but it seems to be getting worse. He saw his PCP on wednesday, and today, his abdomen is more distended. He threw up yesterday, for the first time in a while. He has had problems urinating on and off as well. He also apparently had some abnormal blood work. He is generally a poor historian. MD elicited complaint: abdominal pain Pertinent past history: none Onset (ago): day(s) Pain Consistency: constant Location: diffuse Severity: moderate Radiation: none Exacerbating factors: nothing Relieving factors: nothing Associated symptoms: nausea, vomiting, diarrhea (5 times in last few hours) and chills Related Data Home Medications Medication Instructions Recorded Confirmed Adult One Daily Multivitamin 0.4 mg PO DAILY 07/04/19 07/14/19 Combivent Respimat 1 puff INHALATION QID 07/04/19 07/14/19 aspirin [Adult Low Dose Aspirin] 81 mg PO DAILY 07/04/19 07/14/19 duloxetine 20 mg PO BID 07/04/19 07/14/19 fluticasone propion-salmeterol 1 ea INHALATION BID 07/04/19 07/14/19 [Advair Diskus] insulin lispro [Humalog U-100 0 unit SUBCUT DAILY 07/04/19 07/14/19 Insulin] loratadine 10 mg PO DAILY 07/04/19 07/14/19 montelukast 10 mg PO DAILY 07/04/19 07/14/19 pantoprazole 40 mg PO DAILY 07/04/19 07/14/19 pravastatin 10 mg PO DAILY 07/04/19 07/14/19 primidone 50 mg PO BID 07/04/19 07/14/19 verapamil 240 mg PO HS 07/04/19 07/14/19 Allergies Allergy/AdvReac Type Severity Reaction Status Date / Time No Known Allergies Allergy Unverified 01/04/18 11:39 Review of Systems Constitutional: Constitutional: Reports chills, Reports fatigue and Reports weakness Eyes: Eyes: Reports as per HPI ENT: Reports system reviewed and no additional complaints, except as documented Cardiovascular: Cardiovascular: Reports as per HPI Respiratory: Respiratory: Reports as per HPI Gastrointestinal: Gastrointestinal: Reports abdominal pain, Reports bloating, Denies constipation, Reports diarrhea, Reports nausea and Reports vomiting Genitourinary: Genitourinary: Reports no additional male genitourinary complaints Musculoskeletal: Musculoskeletal: Reports no additional musculoskeletal complaints Neurologic: Reports system reviewed and no additional complaints, except as documented Psychiatric: Psychiatric: Reports no additional psychiatric complaints Endocrine: Endocrine: Reports no additional endocrine complaints Hematologic/Lymphatic: Hematologic/Lymphatic: Reports no additional hematologic/lymphatic complaints Allergic/Immunologic: Allergic/Immunologic: Reports no additional allergic/immunologic complaints PMFSH Past Medical History Medical History Elevated blood pressure reading in office with diagnosis of hypertension GERD (gastroesophageal reflux disease) Hyperlipidemia Family History Family History Other Diabetes mellitus Family history of alcoholism Social History Social History Smoking packs per day: 2 Smoking cigarettes per day: 40.0 Years smoked: 40 Smoking pack-years: 80.00 Smoking status: Former smoker Tobacco type: cigarettes Second hand tobacco smoke exposure: Yes Smoking end date: 03/08/10 Alcohol intake: current Drinks per week: 21 Substance use: never Substance use type: does not use Gender identity (if verbalized by the patient): Male Spiritual care concerns: No Agree to blood products: Yes Exam Const: General: no acute distress and alert Orientation/consciousness: patient oriented x3 HENMT: Head: normal to inspection Eyes: Conjunctivae: conjunctivae normal Chest: Chest palpation &
[2019-07-14] MEDS: DEXTROSE 10% 250 ML 999 ML (12:21)
[2019-07-14] MEDS: ONDANSETRON INJ 4 MG/2 ML VIAL IV PUSH ×2 (12:22→13:25)
[2019-07-14 12:25] LABS: Basophils Absolute Auto 0.03 K/mm3 (0.00-0.10); Basophils Percent Auto 0.4 % (0.0-1.0); Eosinophils Absolute Auto 0.01 K/mm3 (0.02-0.50); Eosinophils Percent Auto 0.1 % (1.0-6.0); Hematocrit 36.8 % (37.0-46.0); Hemoglobin 12.6 g/dL (12.4-15.3); Immature Granulocyte Absolute 0.03 K/mm3 (0.00-0.00); Immature Granulocyte Percent A 0.4 % (0.0-0.0); Lymphocytes Absolute Auto 0.29 K/mm3 (1.10-4.50); Lymphocytes Percent Auto 3.4 % (18.0-42.0); Mean Corpuscular HGB Conc 34.2 g/dL (32.0-36.0); Mean Corpuscular Hemoglobin 33.2 pg (27.0-31.0); Mean Corpuscular Volume 96.8 fL (78.0-102.0); Monocytes Absolute Auto 0.53 K/mm3 (0.10-0.90); Monocytes Percent Auto 6.3 % (2.0-11.0); Neutrophils Absolute Auto 7.5 K/mm3 (1.7-7.2); Neutrophils Percent Auto 89.4 % (50.0-70.0); Platelet Count Result 287 K/mm3 (150-420); Red Cell Distribution Width 12.4 % (11.6-14.4); White Blood Count 8.4 K/mm3 (4.8-10.8)
[2019-07-14 12:39] LABS: Alanine Aminotransferase 50 U/L (16-63); Albumin Level 2.9 g/dL (3.4-5.0); Alkaline Phosphatase 279 U/L (46-116); Anion Gap 12.4 mmol/L (7-16); Aspartate Amino Transferase 53 U/L (15-37); Bilirubin,Total 0.7 mg/dL (0.00-1.00); Blood Urea Nitrogen 19 mg/dL (7-18); Calcium 8.5 mg/dL (8.5-10.1); Carbon Dioxide 28 mmol/L (21-32); Chloride 85 mmol/L (98-108); Estimated Glomerular Filt Rate > 60; Glucose 228 mg/dL (70-99); Osmolality Calculated 261 mOsm/kg (285-295); Potassium 4.4 mmol/L (3.5-5.1); Sodium 121 mmol/L (136-145); Total Protein 5.8 g/dL (6.4-8.2)
--- NOTE | 2019-07-14 12:39 | PC.NURSE ---
FSBS 73 - APPLE JUICE GIVEN - PT REMAINS ALERT AND ORIENTED - PT STATES HE DOESN'T THINK HE CAN EAT AT THIS TIME BECAUSE HE IS STILL NAUSEATED
[2019-07-14 12:42] LABS: Lactic Acid Reflex 1.5 mmol/L (0.4-2.0)
[2019-07-14 12:51] LABS: Lipase 23 U/L (73-393)
[2019-07-14 13:19] LABS: Glucose Point of Care 73 (65-105)
[2019-07-14 13:19] LABS: Glucose Point of Care 166 (65-105)
[2019-07-14 13:19] LABS: Glucose Point of Care 35 (65-105)
--- NOTE | 2019-07-14 13:30 | PC.NURSE ---
FSBS 166 - PT EATING SOME LUNCH TRAY - CONDITION REMAINS THE SAME - WILL CONTINUE TO MONITOR AND AWAIT ADMISSION ORDERS
[2019-07-14 13:53] LABS: Glucose Point of Care 234 (65-105)
--- NOTE | 2019-07-14 13:53 | PC.NURSE ---
FSBS 234 - WAITING RN FROM SECOND FLOOR FOR REPORT
[2019-07-14] MEDS: DEXTROSE 5%/0.9% SOD CHL 1,000 ML 100 ML IV CONT (15:04)
[2019-07-14] MEDS: ACETAMINOPHEN 500 MG TABLET PO (16:27)
[2019-07-14 16:42] LABS: Glucose Point of Care 324 (65-105)
--- NOTE | 2019-07-14 16:47 | PM.IMHP ---
H&P: HPI History of Present Illness Chief complaint: sent over per doctor Narrative: Cliff Rodriguez is a 68 year old male patient arrived in the ED today complaining of nausea, vomiting, diarrhea and abdominal pain. Patient has a past medical history of hypertension, GERD, hyperlipidemia and COPD According to patient he was here last month and discharged 07/05/2019. Patient noted that his condition deteriorated once he was discharged from this hospital. He reported of having nausea and vomiting with diarrhea and abdominal pain. He noted that his appetite had decreased Due to his nausea and vomiting. He did point out that he saw his PCP but was unable to tell me what was done at his doctor's office. I will contact his doctor's office if he is here on Wednesday and requests his medical records. While in the ED patient sodium was 121 his AST was slightly elevated at 83 ALT within normal limits alkaline phosphate also elevated. His vital signs is 116/67, 87, 16, 99% on 2 L nasal cannula his lactic acid was within normal limits. a CT was completed in ED which indicated gastroenteritis and pneumonia. he is being admitted for gastroenteritis ,pneumonia, dehydration and to rule out COVID-19. patient abdomen is distended at this time and he complains of pain in his lower abdominal area. he also noted that he has slight shortness of breath but that is due to his COPD, he uses 2 inhalers at home. he also continues to complain of nausea. he has not had any diarrhea since his admission. . Patient denies, CP, palpitation, extremity numbness, lightheadness, dizziness, or fever. Patient will continue to receive clear liquid diet until he is able to tolerate his meals , continue anti nausea medication and received IV fluids for hydration. Review of Systems Constitutional: Constitutional: Reports chills, Reports lethargy, Reports poor appetite and Reports weakness Cardiovascular: Cardiovascular: Reports as per HPI, Reports no additional cardiovascular complaints, Denies irregular heart rhythm, Denies leg edema, Denies lightheadedness and Reports dyspnea ( chronic due to COPD) Respiratory: Respiratory: Denies cough and Reports dyspnea Gastrointestinal: Gastrointestinal: Reports abdominal pain, Denies melena, Denies hematochezia, Denies heartburn, Reports diarrhea, Reports nausea, Reports vomiting and Denies hematemesis Genitourinary: Genitourinary: Denies hematuria, Reports oliguria and Denies dysuria Musculoskeletal: Musculoskeletal: Reports no additional musculoskeletal complaints Integumentary/Breasts: Skin/Breast: Reports system reviewed and no additional complaints, except as docu Neurologic: Reports system reviewed and no additional complaints, except as documented Psychiatric: Psychiatric: Reports no additional psychiatric complaints and Denies confusion Endocrine: Endocrine: Reports no additional endocrine complaints Hematologic/Lymphatic: Hematologic/Lymphatic: Reports no additional hematologic/lymphatic complaints Allergic/Immunologic: Allergic/Immunologic: Reports no additional allergic/immunologic complaints PMFSH Past Medical History Medical History Elevated blood pressure reading in office with diagnosis of hypertension GERD (gastroesophageal reflux disease) Hyperlipidemia Family History Family History Other Diabetes mellitus Family history of alcoholism Social History Social History Smoking packs per day: 3 Smoking cigarettes per day: 60.0 Years smoked: 40 Smoking pack-years: 120.00 Smoking status: Former smoker Tobacco type: cigarettes, pipe and cigars Second hand tobacco smoke exposure: Yes Smoking end date: 03/08/10 Alcohol intake: current Drinks per week: 3 Substance use: never Substance use type: does not use Gender iden
[2019-07-14] MEDS: SODIUM CHLORIDE 0.9% IV 1,000 ML 125 ML IV CONT (18:44)
[2019-07-14] MEDS: DULOXETINE HCL 20 MG CAPSULE.DR PO (18:44)
[2019-07-14] MEDS: PRIMIDONE 50 MG TABLET PO (18:44)
[2019-07-14] MEDS: PANTOPRAZOLE SODIUM IV 40 MG VIAL IV PUSH (21:53)
[2019-07-14 22:51] LABS: Glucose Point of Care 344 (65-105)
[2019-07-15 02:21] LABS: Glucose Point of Care 331 (65-105)
[2019-07-15 04:00] VITALS: BP 133/73; PULSE 99; RESP 18; TEMP 36.7; O2SAT 98
[2019-07-15] MEDS: SODIUM CHLORIDE 0.9% IV 1,000 ML 125 ML IV CONT ×3 (04:09→23:12)
[2019-07-15 04:31] LABS: Glucose Point of Care 323 (65-105)
[2019-07-15 05:35] LABS: Hematocrit 33.6 % (37.0-46.0); Hemoglobin 11.4 g/dL (12.4-15.3); Mean Corpuscular HGB Conc 33.9 g/dL (32.0-36.0); Mean Corpuscular Hemoglobin 33.1 pg (27.0-31.0); Mean Corpuscular Volume 97.7 fL (78.0-102.0); Mean Platelet Volume 8.5 fl (8.7-11.0); Platelet Count Result 294 K/mm3 (150-420); Red Blood Count 3.44 M/mm3 (4.70-6.10); Red Cell Distribution Width 12.5 % (11.6-14.4)
[2019-07-15 05:56] LABS: Alanine Aminotransferase 35 U/L (16-63); Albumin Level 2.6 g/dL (3.4-5.0); Alkaline Phosphatase 213 U/L (46-116); Anion Gap 18.2 mmol/L (7-16); Aspartate Amino Transferase 26 U/L (15-37); Bilirubin,Total 0.5 mg/dL (0.00-1.00); Blood Urea Nitrogen 16 mg/dL (7-18); Calcium 7.2 mg/dL (8.5-10.1); Carbon Dioxide 21 mmol/L (21-32); Chloride 89 mmol/L (98-108); Estimated CRCL calculation 64 ml/min; Estimated Glomerular Filt Rate > 60; Glucose 308 mg/dL (70-99); Magnesium 1.6 mg/dL (1.8-2.4); Osmolality Calculated 271 mOsm/kg (285-295); Potassium 4.2 mmol/L (3.5-5.1); Sodium 124 mmol/L (136-145); Total Protein 5.5 g/dL (6.4-8.2)
[2019-07-15 06:07] LABS: CRP > 11.0 mg/dL (0.0-0.9)
[2019-07-15 07:35] VITALS: BP 134/76; PULSE 99; RESP 18; TEMP 36.4; O2SAT 96
[2019-07-15 08:21] LABS: Glucose Point of Care 317 (65-105)
[2019-07-15] MEDS: PRAVASTATIN SODIUM 20 MG TABLET PO (09:31)
[2019-07-15] MEDS: ASPIRIN 81 MG ENTERIC TABLET PO (09:31)
[2019-07-15] MEDS: DULOXETINE HCL 20 MG CAPSULE.DR PO ×2 (09:32→17:34)
[2019-07-15] MEDS: PRIMIDONE 50 MG TABLET PO ×2 (09:32→17:34)
[2019-07-15] MEDS: PANTOPRAZOLE SODIUM IV 40 MG VIAL IV PUSH ×2 (09:32→21:17)
[2019-07-15] MEDS: LORATADINE 10 MG TABLET PO (09:32)
[2019-07-15] MEDS: ENOXAPARIN 40 MG/0.4 ML SYRINGE SUB-Q (09:55)
[2019-07-15] MEDS: MAGNESIUM SULF 2 GM/WATER 50ML 2 GM/50 ML BAG IVPB (09:56)
[2019-07-15 12:24] LABS: Glucose Point of Care 261 (65-105)
--- NOTE | 2019-07-15 12:31 | P.PNIM_ITS ---
Progress Note: A&P Assessment and Plan (1) Gastroenteritis: Code(s): K52.9 - Noninfective gastroenteritis and colitis, unspecified <Amber Griggs MECHANICAL ENGINEERING PROFESSOR-C - Last Filed: 07/15/19 12:48> Status: Acute <Amber Griggs MECHANICAL ENGINEERING PROFESSOR-C - Last Filed: 07/15/19 12:48> Assessment and Plan: * CT indicate gastroenteritis * PATIENT ABLE TO TOLERATE CLEAR LIQUID DIET WILL ADVANCE HIS DIET TO A DIABETIC DIET WITH LOW FAT * continue IV hydration * continues Zofran * continue comfort care * will advance diet as tolerated * C DIFF NEGATIVE ADDED IMODIUM FOR DIARRHEA <Amber Griggs MECHANICAL ENGINEERING PROFESSOR-C - Last Filed: 07/15/19 12:48> (2) Acute hyponatremia: Code(s): E87.1 - Hypo-osmolality and hyponatremia <Amber GriggsBEBA-C - Last Filed: 07/15/19 12:48> Status: Acute <Amber GriggsISAÍAS - Last Filed: 07/15/19 12:48> Assessment and Plan: * possibly secondary to dehydration * continue IV hydration * BMP in a.m. * will continue to monitor <Amber GriggsBEBA-C - Last Filed: 07/15/19 12:48> (3) Diabetes type 1, uncontrolled: Code(s): E10.65 - Type 1 diabetes mellitus with hyperglycemia <Amber TraylorBEBA Clarke-C - Last Filed: 07/15/19 12:48> Status: Acute <Amber GriggsKAYLAHC - Last Filed: 07/15/19 12:48> Assessment and Plan: * PATIENT INSULIN PUMP HAS BEEN REMOVED STARTED LISPRO 6 UNITS T.I.D. WITH MEALS * continue Accu-Cheks while hypoglycemic protocol <Phongmike KymberlyBEBA Clarke-C - Last Filed: 07/15/19 12:48> (4) GERD (gastroesophageal reflux disease): Code(s): K21.9 - Gastro-esophageal reflux disease without esophagitis <Amber KymberlyBEBA Clarke-C - Last Filed: 07/15/19 12:48> Status: Acute <Phongmike KymberlyBEBA Clarke-C - Last Filed: 07/15/19 12:48> Assessment and Plan: * started Protonix <Amber Griggs ISAÍAS - Last Filed: 07/15/19 12:48> (5) Elevated blood pressure reading in office with diagnosis of hypertension: Code(s): I10 - Essential (primary) hypertension <Amber Griggs ISAÍAS - Last Filed: 07/15/19 12:48> Status: Acute <Amber Griggs ISAÍAS - Last Filed: 07/15/19 12:48> Assessment and Plan: * blood pressure 133/73 * WILL CONTINUE HOME MEDICATION * vital signs is ordered <Amber Griggs ISAÍAS - Last Filed: 07/15/19 12:48> (6) PNA (pneumonia): Code(s): J18.9 - Pneumonia, unspecified organism <Amber Griggs ISAÍAS - Last Filed: 07/15/19 12:48> Status: Acute <Amber Griggs ISAÍAS - Last Filed: 07/15/19 12:48> Assessment and Plan: * CT indicated Multiple centrilobular groundglass opacities in the right middle and lower lobes which favors aspiration and/or pneumonia. The pattern of pneumonia would be atypical for COVID-19. * blood culture ordered * UA culture pending * day 2 of azithromycin and Rocephin * patient afebrile * continue supplementary oxygen as needed * continue inhalers <Amber Griggs ISAÍAS - Last Filed: 07/15/19 12:48> (7) Dehydration: Code(s): E86.0 - Dehydration <Amber Griggs ISAÍAS - Last Filed: 07/15/19 12:48> Status: Acute <Amber Griggs ISAÍAS - Last Filed: 07/15/19 12:48> Assessment and Plan: * secondary to nausea vomiting and diarrhea * continue IV hydration * encourage fluid intake <Amber Griggs ISAÍAS - Last Filed: 07/15/19 12:48> (8) COVID-19: Code(s): U07.1 - COVID-19 <Amber Griggs ISAÍAS - Last Filed: 07/15/19 12:48> Status:
--- NOTE | 2019-07-15 12:31 | PM.IMPN ---
Progress Note: A&P Assessment and Plan (1) Gastroenteritis: Code(s): K52.9 - Noninfective gastroenteritis and colitis, unspecified <Phongmike KymberlyISAÍAS Clarke - Last Filed: 07/15/19 12:48> Status: Acute <Amber GriggsKAYLAHC - Last Filed: 07/15/19 12:48> Assessment and Plan: CT indicate gastroenteritis PATIENT ABLE TO TOLERATE CLEAR LIQUID DIET WILL ADVANCE HIS DIET TO A DIABETIC DIET WITH LOW FAT continue IV hydration continues Zofran continue comfort care will advance diet as tolerated C DIFF NEGATIVE ADDED IMODIUM FOR DIARRHEA <PhongBEBA Lloyd-C - Last Filed: 07/15/19 12:48> (2) Acute hyponatremia: Code(s): E87.1 - Hypo-osmolality and hyponatremia <Phongmike KymberlyBEBA Clarke-C - Last Filed: 07/15/19 12:48> Status: Acute <ISAÍAS [place] - Last Filed: 07/15/19 12:48> Assessment and Plan: possibly secondary to dehydration continue IV hydration BMP in a.m. will continue to monitor <PhongISAÍAS Lloyd - Last Filed: 07/15/19 12:48> (3) Diabetes type 1, uncontrolled: Code(s): E10.65 - Type 1 diabetes mellitus with hyperglycemia <PhongBEBA Lloyd-C - Last Filed: 07/15/19 12:48> Status: Acute <ISAÍAS [place] - Last Filed: 07/15/19 12:48> Assessment and Plan: PATIENT INSULIN PUMP HAS BEEN REMOVED STARTED LISPRO 6 UNITS T.I.D. WITH MEALS continue Accu-Cheks while hypoglycemic protocol <BEBA [place]-C - Last Filed: 07/15/19 12:48> (4) GERD (gastroesophageal reflux disease): Code(s): K21.9 - Gastro-esophageal reflux disease without esophagitis <BEBA [place]-C - Last Filed: 07/15/19 12:48> Status: Acute <ISAÍAS [place] - Last Filed: 07/15/19 12:48> Assessment and Plan: started Protonix <Amber Griggs ISAÍAS - Last Filed: 07/15/19 12:48> (5) Elevated blood pressure reading in office with diagnosis of hypertension: Code(s): I10 - Essential (primary) hypertension <Amber Griggs ISAÍAS - Last Filed: 07/15/19 12:48> Status: Acute <ISAÍAS [place] - Last Filed: 07/15/19 12:48> Assessment and Plan: blood pressure 133/73 WILL CONTINUE HOME MEDICATION vital signs is ordered <Amber Griggs ISAÍAS - Last Filed: 07/15/19 12:48> (6) PNA (pneumonia): Code(s): J18.9 - Pneumonia, unspecified organism <Amber Griggs ISAÍAS - Last Filed: 07/15/19 12:48> Status: Acute <Amber Griggs ISAÍAS - Last Filed: 07/15/19 12:48> Assessment and Plan: CT indicated Multiple centrilobular groundglass opacities in the right middle and lower lobes which favors aspiration and/or pneumonia. The pattern of pneumonia would be atypical for COVID-19. blood culture ordered UA culture pending day 2 of azithromycin and Rocephin patient afebrile continue supplementary oxygen as needed continue inhalers <Amber Griggs ISAÍAS - Last Filed: 07/15/19 12:48> (7) Dehydration: Code(s): E86.0 - Dehydration <Amber Griggs ISAÍAS - Last Filed: 07/15/19 12:48> Status: Acute <Amber Griggs ISAÍAS - Last Filed: 07/15/19 12:48> Assessment and Plan: secondary to nausea vomiting and diarrhea continue IV hydration encourage fluid intake <Amber Griggs ISAÍAS - Last Filed: 07/15/19 12:48> (8) COVID-19: Code(s): U07.1 - COVID-19 <Amber Griggs ISAÍAS - Last Filed: 07/15/19 12:48> Status: Acute <Amber Griggs ISAÍAS - Last Filed: 07/15/19 12:48> Assessment and Plan: CT indicates Multiple centrilobular groundglass opacities in the right middle and lower lobes which favors aspiration and/or pneumonia. The pattern of pneumonia would be atypical for COVID-19. COVID-19 testing pending remain on isolation <Amber Griggs, LABORATORY SCIENTIST-C - L
[2019-07-15 12:55] VITALS: BP 134/71; PULSE 92; RESP 18; TEMP 36.5; O2SAT 100
--- NOTE | 2019-07-15 13:01 | PM.EVENT ---
Event Note Event Note Event Note: Abdominal pain: none today. No nausea or diarrhea. Tolerating oral intake. Abdominal distension persists. CT abd/pelvis c/w gastroenteritis; dilated bowel without evidence of obstruction. Pneumonia: RML, lower lobes by CT. Pt denies increased shortness of breath/coughing. Does not use O2 at home. Has had one dose of Rocephin and azithromycin. o) Sitting up in bed. RR ~ 18, not labored. Rales right base. Cor: RR&R with 2/6 MARY. Abdomen is distended and tympanitic. No rebound pain or tenderness to deep palpation. WBC -increased from 12 to 13 thousand. Hyponatremia 121 increased to 124. Discussed with and agree with Amber Griggs's note and plan.
[2019-07-15 13:19] LABS: SARS-CoV-2 RNA PCR Negative
[2019-07-15 15:45] VITALS: BP 138/73; PULSE 95; RESP 18; TEMP 36.2; O2SAT 98
[2019-07-15 17:48] LABS: Glucose Point of Care 349 (65-105)
[2019-07-15 19:15] VITALS: BP 127/63; PULSE 93; RESP 18; TEMP 36.6; O2SAT 98
[2019-07-15 22:12] LABS: Glucose Point of Care 296 (65-105)
[2019-07-16] VITALS: BP 161/83; PULSE 93; RESP 20; TEMP 36.4; O2SAT 98
[2019-07-16 04:00] VITALS: BP 153/77; PULSE 97; RESP 22; TEMP 35.5; O2SAT 100
[2019-07-16 06:35] LABS: Hematocrit 31.7 % (37.0-46.0); Hemoglobin 11.1 g/dL (12.4-15.3); Mean Corpuscular Hemoglobin 34.3 pg (27.0-31.0); Mean Corpuscular Volume 97.8 fL (78.0-102.0); Mean Platelet Volume 8.6 fl (8.7-11.0); Platelet Count Result 352 K/mm3 (150-420); Red Blood Count 3.24 M/mm3 (4.70-6.10); Red Cell Distribution Width 12.3 % (11.6-14.4); White Blood Count 14.2 K/mm3 (4.8-10.8)
[2019-07-16 07:04] LABS: Magnesium 2.1 mg/dL (1.8-2.4)
[2019-07-16 07:08] LABS: Alanine Aminotransferase 28 U/L (16-63); Albumin Level 2.5 g/dL (3.4-5.0); Alkaline Phosphatase 181 U/L (46-116); Anion Gap 16.3 mmol/L (7-16); Aspartate Amino Transferase 18 U/L (15-37); Bilirubin,Total 0.4 mg/dL (0.00-1.00); Blood Urea Nitrogen 11 mg/dL (7-18); Calcium 7.1 mg/dL (8.5-10.1); Carbon Dioxide 22 mmol/L (21-32); Chloride 90 mmol/L (98-108); Estimated CRCL calculation 72 ml/min; Estimated Glomerular Filt Rate > 60; Glucose 375 mg/dL (70-99); Osmolality Calculated 272 mOsm/kg (285-295); Potassium 4.3 mmol/L (3.5-5.1); Sodium 124 mmol/L (136-145); Total Protein 4.9 g/dL (6.4-8.2)
[2019-07-16 07:19] LABS: CRP 16.6 mg/dL (0.0-0.9)
[2019-07-16 07:45] VITALS: BP 153/85; PULSE 91; RESP 18; TEMP 36.2; O2SAT 100
[2019-07-16 07:55] LABS: Glucose Point of Care 355 (65-105)
[2019-07-16] MEDS: PANTOPRAZOLE SODIUM IV 40 MG VIAL IV PUSH ×2 (09:32→20:44)
[2019-07-16] MEDS: ENOXAPARIN 40 MG/0.4 ML SYRINGE SUB-Q (09:33)
[2019-07-16] MEDS: PRAVASTATIN SODIUM 20 MG TABLET PO (09:33)
[2019-07-16] MEDS: PRIMIDONE 50 MG TABLET PO ×2 (09:34→17:24)
[2019-07-16] MEDS: LORATADINE 10 MG TABLET PO (09:34)
[2019-07-16] MEDS: DULOXETINE HCL 20 MG CAPSULE.DR PO ×2 (09:34→17:24)
[2019-07-16] MEDS: ASPIRIN 81 MG ENTERIC TABLET PO (09:34)
[2019-07-16 11:26] LABS: Glucose Point of Care 302 (65-105)
[2019-07-16 12:00] VITALS: BP 154/75; PULSE 90; RESP 18; TEMP 36.6; O2SAT 98
--- NOTE | 2019-07-16 12:57 | P.PNIM_ITS ---
Progress Note: A&P Assessment and Plan (1) Gastroenteritis: Code(s): K52.9 - Noninfective gastroenteritis and colitis, unspecified Status: Acute Assessment and Plan: * resolved * CT indicate gastroenteritis * patient able to tolerate meals has not had nausea vomiting * continue IV hydration * continues Zofran * continue comfort care * C DIFF NEGATIVE ADDED IMODIUM FOR DIARRHEA (2) Acute hyponatremia: Code(s): E87.1 - Hypo-osmolality and hyponatremia Status: Acute Assessment and Plan: * resolved * possibly secondary to dehydration * continue IV hydration * BMP in a.m. * will continue to monitor (3) Diabetes type 1, uncontrolled: Code(s): E10.65 - Type 1 diabetes mellitus with hyperglycemia Status: Acute Assessment and Plan: * blood sugars in the 300s * PATIENT INSULIN PUMP HAS BEEN REMOVED STARTED LISPRO 6 UNITS T.I.D. WITH MEALS * continue Accu-Cheks while hypoglycemic protocol * increase sliding scale to moderate (4) GERD (gastroesophageal reflux disease): Code(s): K21.9 - Gastro-esophageal reflux disease without esophagitis Status: Acute Assessment and Plan: * started Protonix (5) Elevated blood pressure reading in office with diagnosis of hypertension: Code(s): I10 - Essential (primary) hypertension Status: Acute Assessment and Plan: * blood pressure elevated * WILL CONTINUE HOME MEDICATION * vital signs is ordered (6) PNA (pneumonia): Code(s): J18.9 - Pneumonia, unspecified organism Status: Acute Assessment and Plan: * CT indicated Multiple centrilobular groundglass opacities in the right middle and lower lobes which favors aspiration and/or pneumonia. The pattern of pneumonia would be atypical for COVID-19. * blood culture ordered * UA culture pending * day 2 of azithromycin and Rocephin * patient afebrile * continue supplementary oxygen as needed * continue inhalers (7) Dehydration: Code(s): E86.0 - Dehydration Status: Acute Assessment and Plan: * secondary to nausea vomiting and diarrhea * continue IV hydration * encourage fluid intake (8) COVID-19: Code(s): U07.1 - COVID-19 Status: Acute Assessment and Plan: * CT indicates Multiple centrilobular groundglass opacities in the right middle and lower lobes which favors aspiration and/or pneumonia. The pattern of pneumonia would be atypical for COVID-19. * COVID-19 testing negative (9) COPD (chronic obstructive pulmonary disease): Code(s): J44.9 - Chronic obstructive pulmonary disease, unspecified Status: Inactive Assessment and Plan: * IMPROVED * continue nebulizers * continue supplementary oxygen Subjective Date/time seen: 07/16/19 12:57 patient does not have any complaints this day, in fact he stays condition has improved. he has not had nausea vomiting nor diarrhea or abdominal pain for the last couple of days. he is able to tolerate his meals and ambulate at baseline. we will keep the patient for an additional day to monitor him due to slightly elevated wbc's and increased CRP. will repeat labs in the a.m. Review of Systems Constitutional: Constitutional: Reports chills, Reports lethargy, Reports poor appetite and Reports weakness Cardiovascular: Cardiovascular: Reports as per HPI, Reports no additional cardiovascular complaints, Denies irregular heart rhythm, Denies leg edema, Denies lightheadedness and Denies dyspnea
--- NOTE | 2019-07-16 12:57 | PM.IMPN ---
Progress Note: A&P Assessment and Plan (1) Gastroenteritis: Code(s): K52.9 - Noninfective gastroenteritis and colitis, unspecified Status: Acute Assessment and Plan: resolved CT indicate gastroenteritis patient able to tolerate meals has not had nausea vomiting continue IV hydration continues Zofran continue comfort care C DIFF NEGATIVE ADDED IMODIUM FOR DIARRHEA (2) Acute hyponatremia: Code(s): E87.1 - Hypo-osmolality and hyponatremia Status: Acute Assessment and Plan: resolved possibly secondary to dehydration continue IV hydration BMP in a.m. will continue to monitor (3) Diabetes type 1, uncontrolled: Code(s): E10.65 - Type 1 diabetes mellitus with hyperglycemia Status: Acute Assessment and Plan: blood sugars in the 300s PATIENT INSULIN PUMP HAS BEEN REMOVED STARTED LISPRO 6 UNITS T.I.D. WITH MEALS continue Accu-Cheks while hypoglycemic protocol increase sliding scale to moderate (4) GERD (gastroesophageal reflux disease): Code(s): K21.9 - Gastro-esophageal reflux disease without esophagitis Status: Acute Assessment and Plan: started Protonix (5) Elevated blood pressure reading in office with diagnosis of hypertension: Code(s): I10 - Essential (primary) hypertension Status: Acute Assessment and Plan: blood pressure elevated WILL CONTINUE HOME MEDICATION vital signs is ordered (6) PNA (pneumonia): Code(s): J18.9 - Pneumonia, unspecified organism Status: Acute Assessment and Plan: CT indicated Multiple centrilobular groundglass opacities in the right middle and lower lobes which favors aspiration and/or pneumonia. The pattern of pneumonia would be atypical for COVID-19. blood culture ordered UA culture pending day 2 of azithromycin and Rocephin patient afebrile continue supplementary oxygen as needed continue inhalers (7) Dehydration: Code(s): E86.0 - Dehydration Status: Acute Assessment and Plan: secondary to nausea vomiting and diarrhea continue IV hydration encourage fluid intake (8) COVID-19: Code(s): U07.1 - COVID-19 Status: Acute Assessment and Plan: CT indicates Multiple centrilobular groundglass opacities in the right middle and lower lobes which favors aspiration and/or pneumonia. The pattern of pneumonia would be atypical for COVID-19. COVID-19 testing negative (9) COPD (chronic obstructive pulmonary disease): Code(s): J44.9 - Chronic obstructive pulmonary disease, unspecified Status: Inactive Assessment and Plan: IMPROVED continue nebulizers continue supplementary oxygen Subjective Date/time seen: 07/16/19 12:57 patient does not have any complaints this day, in fact he stays condition has improved. he has not had nausea vomiting nor diarrhea or abdominal pain for the last couple of days. he is able to tolerate his meals and ambulate at baseline. we will keep the patient for an additional day to monitor him due to slightly elevated wbc's and increased CRP. will repeat labs in the a.m. Review of Systems Constitutional: Constitutional: Reports chills, Reports lethargy, Reports poor appetite and Reports weakness Cardiovascular: Cardiovascular: Reports as per HPI, Reports no additional cardiovascular complaints, Denies irregular heart rhythm, Denies leg edema, Denies lightheadedness and Denies dyspnea Respiratory: Respiratory: Denies cough and Denies dyspnea Gastrointestinal: Gastrointestinal: Denies abdominal pain, Denies melena, Denies hematochezia, Denies heartburn, Reports diarrhea, Denies nausea, Denies vomiting and Denies hematemesis Genitourinary: Genitourinary: Denies hematuria, Reports oliguria and Denies dysuria Musculoskeletal: Musculoskeletal: Reports no additional musculoskeletal complaints Integumentary/Breasts: Skin/Breast: Reports
[2019-07-16] MEDS: predniSONE 20 MG TABLET 40 MG PO (14:44)
--- NOTE | 2019-07-16 15:00 | PC.NURSE ---
Patient noted to be walking in hallway, pushing bedside table. Nurse walked with patient back to room. Patient states he was looking for a shower. Nurse notified patient that there is a shower in his room he can use. Patient states understanding. Patient alert to self and situation, but not time. Patient states he woke up from his nap and thinks that is why he was a little confused. Patient walked well in hallway, shows some SOB with excertion. Vital signs obtained, Vitals stable. Patient reminded to call for assist before transfering. Patient sitting up in bed, patient able to state month, year,name, and date. Call light at side.
[2019-07-16 15:05] VITALS: BP 149/91; PULSE 89; RESP 18; TEMP 35.9; O2SAT 97
[2019-07-16 17:39] LABS: Glucose Point of Care 199 (65-105)
--- NOTE | 2019-07-16 18:25 | PC.NURSE ---
Patient resting quietly in bed. Reports no needs at this time. Call light and belongings within reach.
[2019-07-16 19:10] VITALS: BP 181/98; PULSE 85; RESP 16; TEMP 36.8; O2SAT 97
[2019-07-16] MEDS: TRAZODONE HCL 50 MG TABLET PO (20:44)
[2019-07-16 20:55] LABS: Glucose Point of Care 177 (65-105)
--- NOTE | 2019-07-16 21:46 | PM.EVENT ---
Event Note Event Note Event Note: Patient denies chest pain and shortness of breath. Abdominal pain is resolved and he is eating like usual. Alert and oriented. Few rales at the right base. No increased work of breathing. Regular rate and rhythm without murmur or gallop. Extremities are warm dry and pink. Abdomen is soft and nontender. Continue antibiotics. Should be able to discharge him soon. I have examined the patient reviewed the chart. I discussed the patient's care with Jess Griggs APN and agree with her assessment and plan.
[2019-07-17] VITALS (10 sets, daily range): BP systolic 131–162; BP diastolic 68–91; PULSE 88–111; RESP 20–22; TEMP 35.4–36.6; O2SAT 98–100
--- NOTE | 2019-07-17 02:00 | PC.NURSE ---
pt resting in bed watching tv, denies any needs at this time, call light and belongings within reach
[2019-07-17 06:16] LABS: Hematocrit 35.5 % (37.0-46.0); Mean Corpuscular HGB Conc 33.8 g/dL (32.0-36.0); Mean Corpuscular Hemoglobin 33.1 pg (27.0-31.0); Mean Corpuscular Volume 98.1 fL (78.0-102.0); Mean Platelet Volume 8.3 fl (8.7-11.0); Platelet Count Result 419 K/mm3 (150-420); Red Blood Count 3.62 M/mm3 (4.70-6.10); Red Cell Distribution Width 12.3 % (11.6-14.4); White Blood Count 16.1 K/mm3 (4.8-10.8)
[2019-07-17 06:37] LABS: Alanine Aminotransferase 29 U/L (16-63); Albumin Level 2.9 g/dL (3.4-5.0); Alkaline Phosphatase 180 U/L (46-116); Anion Gap 25.9 mmol/L (7-16); Aspartate Amino Transferase 19 U/L (15-37); Bilirubin,Total 0.4 mg/dL (0.00-1.00); Blood Urea Nitrogen 12 mg/dL (7-18); CRP 9.2 mg/dL (0.0-0.9); Calcium 8.1 mg/dL (8.5-10.1); Carbon Dioxide 17 mmol/L (21-32); Chloride 86 mmol/L (98-108); Estimated CRCL calculation 72 ml/min; Estimated Glomerular Filt Rate > 60; Osmolality Calculated 274 mOsm/kg (285-295); Potassium 4.9 mmol/L (3.5-5.1); Sodium 124 mmol/L (136-145); Total Protein 5.6 g/dL (6.4-8.2)
[2019-07-17 06:40] LABS: Glucose 413 mg/dL (70-99)
--- NOTE | 2019-07-17 06:43 | PC.NURSE ---
Lab called to report critical glucose of 413. Dr. Henley notified of critical lab value and no new orders at this time.
[2019-07-17 08:10] LABS: Glucose Point of Care 406 (65-105)
[2019-07-17] MEDS: ASPIRIN 81 MG ENTERIC TABLET PO (08:56)
[2019-07-17] MEDS: ENOXAPARIN 40 MG/0.4 ML SYRINGE SUB-Q (08:56)
[2019-07-17] MEDS: PANTOPRAZOLE SODIUM IV 40 MG VIAL IV PUSH ×2 (08:56→21:28)
[2019-07-17] MEDS: PRAVASTATIN SODIUM 20 MG TABLET PO (08:57)
[2019-07-17] MEDS: predniSONE 20 MG TABLET 40 MG PO (08:57)
[2019-07-17] MEDS: DULOXETINE HCL 20 MG CAPSULE.DR PO ×2 (08:57→16:32)
[2019-07-17] MEDS: LORATADINE 10 MG TABLET PO (08:57)
[2019-07-17] MEDS: PRIMIDONE 50 MG TABLET PO ×2 (08:57→16:32)
--- NOTE | 2019-07-17 09:18 | ECG_ITS ---
Measurements Intervals [place] Rate: 110 P: 73 MO: 157 QRS: 82 QRSD: 94 T: 45 QT: 328 QTc: 444 Interpretive Statements SINUS TACHYCARDIA BORDERLINE ST ABNORMALITY- ANTEROLATERAL LEADS BASELINE ARTIFACT- I, III, AVR, AVL ABNORMAL ECG Electronically Signed On 07-17-2019 9:44:03 CDT by Daniel Jones D.O.
[2019-07-17 09:55] LABS: Troponin I < 0.02 ng/mL (0.00-0.056)
[2019-07-17 10:59] LABS: Glucose Point of Care 412 (65-105)
[2019-07-17 11:24] LABS: Phosphorus 3.3 mg/dL (2.6-4.7)
[2019-07-17 11:28] LABS: Ammonia < 10 umol/L (11-32)
--- NOTE | 2019-07-17 11:42 | PCOTNOTE ---
OT attempted to see patient for OT evaluation, nursing states to hold off on evaluation as patient is having a CT scan performed. Will attempt this pm. MS
[2019-07-17] MEDS: INSULIN HUMAN REGULAR (*BKC) 100 UNITS/ML SUB-Q (12:44)
--- NOTE | 2019-07-17 13:01 | P.PNIM_ITS ---
Progress Note: A&P Assessment and Plan (1) Gastroenteritis: Code(s): K52.9 - Noninfective gastroenteritis and colitis, unspecified Status: Acute Assessment and Plan: * resolved * CT indicate gastroenteritis * patient able to tolerate meals has not had nausea vomiting * continues Zofran * continue comfort care * C DIFF NEGATIVE ADDED IMODIUM FOR DIARRHEA (2) Acute hyponatremia: Code(s): E87.1 - Hypo-osmolality and hyponatremia Status: Acute Assessment and Plan: * resolved * possibly secondary to dehydration * BMP in a.m. * will continue to monitor (3) Diabetes type 1, uncontrolled: Code(s): E10.65 - Type 1 diabetes mellitus with hyperglycemia Status: Acute Assessment and Plan: * blood sugars in the 300s * PATIENT INSULIN PUMP HAS BEEN REMOVED STARTED LISPRO 6 UNITS T.I.D. WITH MEALS * continue Accu-Cheks while hypoglycemic protocol * increase sliding scale to HIGH (4) GERD (gastroesophageal reflux disease): Code(s): K21.9 - Gastro-esophageal reflux disease without esophagitis Status: Acute Assessment and Plan: * started Protonix (5) Elevated blood pressure reading in office with diagnosis of hypertension: Code(s): I10 - Essential (primary) hypertension Status: Acute Assessment and Plan: * blood pressure elevated * WILL CONTINUE HOME MEDICATION * vital signs is ordered (6) PNA (pneumonia): Code(s): J18.9 - Pneumonia, unspecified organism Status: Acute Assessment and Plan: * CT indicated Multiple centrilobular groundglass opacities in the right middle and lower lobes which favors aspiration and/or pneumonia. The pattern of pneumonia would be atypical for COVID-19. * blood culture ordered * UA culture pending * day 2 of azithromycin and Rocephin * patient afebrile * continue supplementary oxygen as needed * continue inhalers (7) Dehydration: Code(s): E86.0 - Dehydration Status: Acute Assessment and Plan: * secondary to nausea vomiting and diarrhea * encourage fluid intake (8) COVID-19: Code(s): U07.1 - COVID-19 Status: Acute Assessment and Plan: * CT indicates Multiple centrilobular groundglass opacities in the right middle and lower lobes which favors aspiration and/or pneumonia. The pattern of pneumonia would be atypical for COVID-19. * COVID-19 testing negative (9) COPD (chronic obstructive pulmonary disease): Code(s): J44.9 - Chronic obstructive pulmonary disease, unspecified Status: Inactive Assessment and Plan: * IMPROVED * continue nebulizers * continue supplementary oxygen (10) Seizure: Code(s): R56.9 - Unspecified convulsions Status: Acute Assessment and Plan: * PATIENT DOES TAKE SEIZURE MEDICATIONS PRIMIDONE * NOT LISTED PART OF MEDICAL HISTORY * REQUESTED MEDICAL HISTORY, MEDICATION IN LAST PROGRESS NOTE FROM PCP DR. SWEET * PATIENT PLACED ON SEIZURE PRECAUTION, WITH NEURO CHECKS * FOR WILL KEEP PATIENT FOR 1 MORE DAY TO MONITOR * PRIMIDONE LEVEL PENDING * CT OF THE HEAD AND ABDOMEN PENDING * TROPONIN NEGATIVE * AMMONIA LEVEL WITHIN NORMAL LIMITS Subjective Date/time seen: 07/17/19 13:01 DURING MORNING VISITS AND MORNING ROUNDS PATIENT MEDICAL STATUS HAD CHANGED FROM PREVIOUS DAY. PATIENT WAS ALERT BUT UNAWARE OF HIS NAME LOCATION OR TIME, HE ALSO HAD A BLANK STARE WITH UNCONTROLLED JERKING OF HIS UPPER AND LOWER EXTREMITIES. PATIENT WAS ALSO TACH
--- NOTE | 2019-07-17 13:01 | PM.IMPN ---
Progress Note: A&P Assessment and Plan (1) Gastroenteritis: Code(s): K52.9 - Noninfective gastroenteritis and colitis, unspecified Status: Acute Assessment and Plan: resolved CT indicate gastroenteritis patient able to tolerate meals has not had nausea vomiting continues Zofran continue comfort care C DIFF NEGATIVE ADDED IMODIUM FOR DIARRHEA (2) Acute hyponatremia: Code(s): E87.1 - Hypo-osmolality and hyponatremia Status: Acute Assessment and Plan: resolved possibly secondary to dehydration BMP in a.m. will continue to monitor (3) Diabetes type 1, uncontrolled: Code(s): E10.65 - Type 1 diabetes mellitus with hyperglycemia Status: Acute Assessment and Plan: blood sugars in the 300s PATIENT INSULIN PUMP HAS BEEN REMOVED STARTED LISPRO 6 UNITS T.I.D. WITH MEALS continue Accu-Cheks while hypoglycemic protocol increase sliding scale to HIGH (4) GERD (gastroesophageal reflux disease): Code(s): K21.9 - Gastro-esophageal reflux disease without esophagitis Status: Acute Assessment and Plan: started Protonix (5) Elevated blood pressure reading in office with diagnosis of hypertension: Code(s): I10 - Essential (primary) hypertension Status: Acute Assessment and Plan: blood pressure elevated WILL CONTINUE HOME MEDICATION vital signs is ordered (6) PNA (pneumonia): Code(s): J18.9 - Pneumonia, unspecified organism Status: Acute Assessment and Plan: CT indicated Multiple centrilobular groundglass opacities in the right middle and lower lobes which favors aspiration and/or pneumonia. The pattern of pneumonia would be atypical for COVID-19. blood culture ordered UA culture pending day 2 of azithromycin and Rocephin patient afebrile continue supplementary oxygen as needed continue inhalers (7) Dehydration: Code(s): E86.0 - Dehydration Status: Acute Assessment and Plan: secondary to nausea vomiting and diarrhea encourage fluid intake (8) COVID-19: Code(s): U07.1 - COVID-19 Status: Acute Assessment and Plan: CT indicates Multiple centrilobular groundglass opacities in the right middle and lower lobes which favors aspiration and/or pneumonia. The pattern of pneumonia would be atypical for COVID-19. COVID-19 testing negative (9) COPD (chronic obstructive pulmonary disease): Code(s): J44.9 - Chronic obstructive pulmonary disease, unspecified Status: Inactive Assessment and Plan: IMPROVED continue nebulizers continue supplementary oxygen (10) Seizure: Code(s): R56.9 - Unspecified convulsions Status: Acute Assessment and Plan: PATIENT DOES TAKE SEIZURE MEDICATIONS PRIMIDONE NOT LISTED PART OF MEDICAL HISTORY REQUESTED MEDICAL HISTORY, MEDICATION IN LAST PROGRESS NOTE FROM PCP DR. SWEET PATIENT PLACED ON SEIZURE PRECAUTION, WITH NEURO CHECKS FOR WILL KEEP PATIENT FOR 1 MORE DAY TO MONITOR PRIMIDONE LEVEL PENDING CT OF THE HEAD AND ABDOMEN PENDING TROPONIN NEGATIVE AMMONIA LEVEL WITHIN NORMAL LIMITS Subjective Date/time seen: 07/17/19 13:01 DURING MORNING VISITS AND MORNING ROUNDS PATIENT MEDICAL STATUS HAD CHANGED FROM PREVIOUS DAY. PATIENT WAS ALERT BUT UNAWARE OF HIS NAME LOCATION OR TIME, HE ALSO HAD A BLANK STARE WITH UNCONTROLLED JERKING OF HIS UPPER AND LOWER EXTREMITIES. PATIENT WAS ALSO TACHYCARDIA TACHYPNEA EKG WAS ORDERED INDICATED SINUS TACH. TROPONINS WERE NEGATIVE. CT THE HEAD ABDOMEN PENDING. CHEST X-RAY INDICATED IMPROVING PNEUMONIA. AMMONIA LEVEL WITHIN NORMAL LIMITS. LATER THIS DAY I REVISITED THE PATIENT, PATIENT WAS SITTING UP ON THE SIDE OF BED ALERT AND ORIENTATED X4, ABLE TO FOLLOW COMMANDS AND UNAWARE OF WHAT HAD PREVIOUSLY HAPPENED. PATIENT IS TAKING MEDICATION FOR SEIZURES. I HAVE CONTACTED PATIENT'S PRIMARY CARE PHYSICIAN TO
--- NOTE | 2019-07-17 15:37 | PCOTNOTE ---
OT attempted to see patient for evaluation. Patient is sleeping and remains in a lethargic state. He is disoriented to place and unable to follow commands. Will attempt evaluation tomorrow. MS
[2019-07-17 16:53] LABS: Glucose Point of Care 298 (65-105)
[2019-07-17] MEDS: SODIUM CHLORIDE 0.9% IV 1,000 ML 100 ML IV CONT (18:08)
[2019-07-17] MEDS: TRAZODONE HCL 50 MG TABLET PO (20:49)
[2019-07-17 20:57] LABS: Glucose Point of Care 249 (65-105)
[2019-07-18] VITALS (11 sets, daily range): BP systolic 129–177; BP diastolic 66–96; PULSE 85–104; RESP 16–20; TEMP 36.6–36.9; O2SAT 93–97
--- NOTE | 2019-07-18 01:42 | PC.NURSE ---
Telemetry & IV continue. No signs of discomfort noted.
--- NOTE | 2019-07-18 02:53 | PC.NURSE ---
Tele & IV continue. Voided in urinal @ bedside clear lt yellow
--- NOTE | 2019-07-18 04:17 | PC.NURSE ---
IV & telemetry continue.
--- NOTE | 2019-07-18 05:39 | PC.NURSE ---
IV & telemetry continue. Pt refused lab reinaldo.
--- NOTE | 2019-07-18 06:06 | PC.NURSE ---
Refused lab draw this am.
[2019-07-18] MEDS: SODIUM CHLORIDE 0.9% IV 1,000 ML 100 ML IV CONT ×2 (06:14→18:35)
--- NOTE | 2019-07-18 07:40 | PCDIET ---
Up with SBA up to void, denies dizzyness at this time, had BM and voided, back to bed and fludis infusing as ordered
[2019-07-18 07:58] LABS: Glucose Point of Care > 450 (65-105)
--- NOTE | 2019-07-18 08:00 | PC.NURSE ---
Sat up in bed for breakfast, feeds self
--- NOTE | 2019-07-18 08:15 | PC.NURSE ---
0749 Erp aware of bs over 452
[2019-07-18 08:44] LABS: Hematocrit 35.7 % (37.0-46.0); Hemoglobin 11.9 g/dL (12.4-15.3); Mean Corpuscular HGB Conc 33.3 g/dL (32.0-36.0); Mean Corpuscular Volume 98.9 fL (78.0-102.0); Mean Platelet Volume 7.9 fl (8.7-11.0); Platelet Count Result 401 K/mm3 (150-420); Red Blood Count 3.61 M/mm3 (4.70-6.10); Red Cell Distribution Width 12.9 % (11.6-14.4); White Blood Count 18.3 K/mm3 (4.8-10.8)
[2019-07-18 08:59] LABS: Alanine Aminotransferase 28 U/L (16-63); Albumin Level 2.9 g/dL (3.4-5.0); Alkaline Phosphatase 166 U/L (46-116); Anion Gap 27.8 mmol/L (7-16); Aspartate Amino Transferase 17 U/L (15-37); Bilirubin,Total 0.5 mg/dL (0.00-1.00); Blood Urea Nitrogen 17 mg/dL (7-18); Calcium 7.9 mg/dL (8.5-10.1); Carbon Dioxide 14 mmol/L (21-32); Chloride 89 mmol/L (98-108); Estimated CRCL calculation 57 ml/min; Estimated Glomerular Filt Rate > 60; Magnesium 2.1 mg/dL (1.8-2.4); Osmolality Calculated 284 mOsm/kg (285-295); Potassium 3.8 mmol/L (3.5-5.1); Sodium 127 mmol/L (136-145); Total Protein 5.9 g/dL (6.4-8.2)
[2019-07-18 09:12] LABS: Glucose 436 mg/dL (70-99)
[2019-07-18] MEDS: DULOXETINE HCL 20 MG CAPSULE.DR PO ×2 (09:41→17:10)
[2019-07-18] MEDS: PANTOPRAZOLE SODIUM IV 40 MG VIAL IV PUSH ×2 (09:41→20:48)
[2019-07-18] MEDS: ENOXAPARIN 40 MG/0.4 ML SYRINGE SUB-Q (09:41)
[2019-07-18] MEDS: ASPIRIN 81 MG ENTERIC TABLET PO (09:41)
[2019-07-18] MEDS: PRIMIDONE 50 MG TABLET PO ×2 (09:42→17:10)
[2019-07-18] MEDS: PRAVASTATIN SODIUM 20 MG TABLET PO (09:42)
[2019-07-18] MEDS: LORATADINE 10 MG TABLET PO (09:42)
--- NOTE | 2019-07-18 09:50 | PC.NURSE ---
Therapy here and patient woke for meds and treatment, more drowsy but remains oriented, slight dizzyness when standing
[2019-07-18 10:34] LABS: Lactic Acid 1.4 mmol/L (0.4-2.0)
[2019-07-18 11:44] LABS: Glucose Point of Care 399 (65-105)
[2019-07-18 12:50] LABS: Base Excess ABG -5.9 mmol/L (0-2); HCO3 ABG 18.7 mmol/L (23-29); Oxygen Content ABG 16.5 %vol (16.0-22.0); Oxygen Saturation ABG 95.3 % (95-97); Oxyhemoglobin 94.4 % (94-100); PCO2 ABG 34.1 mmHg (35-45); PO2 ABG 74.6 mmHg (75-85); Total Hemoglobin 12.4 g/dL; pH ABG 7.36 (7.35-7.45)
[2019-07-18 12:57] LABS: Device ROOM AIR; Modified Allen's Test Pass; Site Drawn RIGHT RADIAL
--- NOTE | 2019-07-18 13:14 | PC.NURSE ---
Up in [place] with therapy
[2019-07-18] MEDS: SENNA/DOCUSATE SODIUM TABLET 1 TAB PO (13:27)
[2019-07-18] MEDS: BISACODYL 10 MG SUPPOSITORY RECTAL (13:27)
[2019-07-18 13:30] LABS: Anion Gap 18.8 mmol/L (7-16); Blood Urea Nitrogen 16 mg/dL (7-18); Calcium 8.3 mg/dL (8.5-10.1); Carbon Dioxide 22 mmol/L (21-32); Chloride 90 mmol/L (98-108); Estimated CRCL calculation 57 ml/min; Estimated Glomerular Filt Rate > 60; Glucose 317 mg/dL (70-99); Osmolality Calculated 277 mOsm/kg (285-295); Potassium 3.8 mmol/L (3.5-5.1); Sodium 127 mmol/L (136-145)
[2019-07-18 13:33] LABS: Glucose Point of Care 291 (65-105)
--- NOTE | 2019-07-18 13:38 | PC.NURSE ---
supository given for bowel, senokot given
[2019-07-18 15:49] LABS: Add Urine Microscopic? YES; Appearance Urine Clear (Clear); Bilirubin Urine Negative (Negative); Blood Urine Negative (Negative); Color Urine Straw (Yellow); Glucose Urine UA 3+ (Negative); Ketones Urine 3+ (Negative); Leukocyte Esterase Ur Negative (Negative); Nitrate Urine Negative (Negative); Protein Urine Negative (Negative); Urobilinogen Urine 0.2 mg/dL (0.2-1.0)
[2019-07-18 15:54] LABS: RBC Urine None seen /hpf (0-2); Squamous Epithelial Cell Urine Rare /hpf (Few); WBC Urine None seen /hpf (0-3)
[2019-07-18 15:55] LABS: Bacteria Urine None seen /hpf
[2019-07-18 17:19] LABS: Glucose Point of Care 186 (65-105)
--- NOTE | 2019-07-18 17:46 | P.PNIM_ITS ---
Progress Note: A&P Assessment and Plan (1) Gastroenteritis: Code(s): K52.9 - Noninfective gastroenteritis and colitis, unspecified <Keily West NP - Last Filed: 07/18/19 19:15> Status: Acute <Keily West NP - Last Filed: 07/18/19 19:15> Assessment and Plan: * May be an intermittent problem, because today he was distended again , lethargic and had some slight abdominal pain and has not had a bowel movement in 2 days. * May be related to his fluctuant glucose levels * important to keep his glucose levels under 200 * CT indicate gastroenteritis * patient able to tolerate meals has not had nausea vomiting * continues Zofran * continue comfort care * C DIFF NEGATIVE * avoiding Imodium at this time because the patient's said he was using Imodium at home and it was making him distended and not having regular bowel movements. * He used to take daily Metamucil in the past and have regular bowel movements, we will return to that medication plan. * He needs to follow-up with the GI or colorectal physician after discharge <Keily West NP - Last Filed: 07/18/19 19:15> (2) Acute hyponatremia: Code(s): E87.1 - Hypo-osmolality and hyponatremia <Keily West NP - Last Filed: 07/18/19 19:15> Status: Acute <Keily West NP - Last Filed: 07/18/19 19:15> Assessment and Plan: * sodium was 127 today, improved from 124 of yesterday. * possibly secondary to dehydration , Creutzfeldt Ross disease, pituitary tumors, lymphoma * BMP in a.m. * will continue to monitor * started telemetry cardiac monitoring continuously <Keily West NP - Last Filed: 07/18/19 19:15> (3) Diabetes type 1, uncontrolled: Code(s): E10.65 - Type 1 diabetes mellitus with hyperglycemia <Keily robles NP - Last Filed: 07/18/19 19:15> Status: Acute <Keily West NP - Last Filed: 07/18/19 19:15> Assessment and Plan: * blood sugars in the 300s at admission, working harder today to keep his glucose less than 200. * PATIENT INSULIN PUMP Was removed at admission and STARTED LISPRO 6 UNITS T.I.D. WITH MEALS * may need to increase his 6 units of lispro with meals * continue Accu-Cheks while hypoglycemic protocol * increase sliding scale to HIGH doses <Keily West NP - Last Filed: 07/18/19 19:15> (4) GERD (gastroesophageal reflux disease): Code(s): K21.9 - Gastro-esophageal reflux disease without esophagitis <Keily West NP - Last Filed: 07/18/19 19:15> Status: Acute <Keily West NP - Last Filed: 07/18/19 19:15> Assessment and Plan: * started Protonix * continued as no complaints <Keily West NP - Last Filed: 07/18/19 19:15> (5) Elevated blood pressure reading in office with diagnosis of hypertension: Code(s): I10 - Essential (primary) hypertension <Keily West NP - Last Filed: 07/18/19 19:15> Status: Acute <Keily West NP - Last Filed: 07/18/19 19:15> Assessment and Plan: * blood pressures are well controlled without his losartan * WILL CONTINUE to hold HOME MEDICATIONs * vital signs is ordered <Keily West NP - Last Filed: 07/18/19 19:15> (6) PNA (pneumonia): Code(s): J18.9 - Pneumonia, unspecified organism <Keily West NP - Last Filed: 07/18/19 19:15> Status: Acute <Keily West NP - Last Filed: 07/18/19 19:15> Assessment and Plan: * at his admission on July [address] indicated Multiple centrilobular groundglass opacities in the right
--- NOTE | 2019-07-18 17:46 | PM.IMPN ---
Progress Note: A&P Assessment and Plan (1) Gastroenteritis: Code(s): K52.9 - Noninfective gastroenteritis and colitis, unspecified <Keily West NP - Last Filed: 07/18/19 19:15> Status: Acute <Keily West NP - Last Filed: 07/18/19 19:15> Assessment and Plan: May be an intermittent problem, because today he was distended again , lethargic and had some slight abdominal pain and has not had a bowel movement in 2 days. May be related to his fluctuant glucose levels important to keep his glucose levels under 200 CT indicate gastroenteritis patient able to tolerate meals has not had nausea vomiting continues Zofran continue comfort care C DIFF NEGATIVE avoiding Imodium at this time because the patient's said he was using Imodium at home and it was making him distended and not having regular bowel movements. He used to take daily Metamucil in the past and have regular bowel movements, we will return to that medication plan. He needs to follow-up with the GI or colorectal physician after discharge <Keiyl West NP - Last Filed: 07/18/19 19:15> (2) Acute hyponatremia: Code(s): E87.1 - Hypo-osmolality and hyponatremia <Keily West NP - Last Filed: 07/18/19 19:15> Status: Acute <Keily West NP - Last Filed: 07/18/19 19:15> Assessment and Plan: sodium was 127 today, improved from 124 of yesterday. possibly secondary to dehydration , Creutzfeldt Ross disease, pituitary tumors, lymphoma BMP in a.m. will continue to monitor started telemetry cardiac monitoring continuously <Keily West NP - Last Filed: 07/18/19 19:15> (3) Diabetes type 1, uncontrolled: Code(s): E10.65 - Type 1 diabetes mellitus with hyperglycemia <Keily West NP - Last Filed: 07/18/19 19:15> Status: Acute <Keily West NP - Last Filed: 07/18/19 19:15> Assessment and Plan: blood sugars in the 300s at admission, working harder today to keep his glucose less than 200. PATIENT INSULIN PUMP Was removed at admission and STARTED LISPRO 6 UNITS T.I.D. WITH MEALS may need to increase his 6 units of lispro with meals continue Accu-Cheks while hypoglycemic protocol increase sliding scale to HIGH doses <Keily West NP - Last Filed: 07/18/19 19:15> (4) GERD (gastroesophageal reflux disease): Code(s): K21.9 - Gastro-esophageal reflux disease without esophagitis <Keily West NP - Last Filed: 07/18/19 19:15> Status: Acute <Keily West NP - Last Filed: 07/18/19 19:15> Assessment and Plan: started Protonix continued as no complaints <Keily West NP - Last Filed: 07/18/19 19:15> (5) Elevated blood pressure reading in office with diagnosis of hypertension: Code(s): I10 - Essential (primary) hypertension <Keily West NP - Last Filed: 07/18/19 19:15> Status: Acute <Keily West NP - Last Filed: 07/18/19 19:15> Assessment and Plan: blood pressures are well controlled without his losartan WILL CONTINUE to hold HOME MEDICATIONs vital signs is ordered <Keily West NP - Last Filed: 07/18/19 19:15> (6) PNA (pneumonia): Code(s): J18.9 - Pneumonia, unspecified organism <Keily West NP - Last Filed: 07/18/19 19:15> Status: Acute <Keily West NP - Last Filed: 07/18/19 19:15> Assessment and Plan: at his admission on July [address] indicated Multiple centrilobular groundglass opacities in the right middle and lower lobes which favors aspiration and/or pneumonia. The pattern of pneumonia would be atypical for COVID-19. BUT then today's chest x-ray showed no effusions and no pneumonia, No cardiopulmonary concerns. blood cultures X2 on July 13 showed no growth, repeated blood cultures x2 today due to persistently climbing wbc's today's UA cult
[2019-07-18] MEDS: ACETAMINOPHEN 500 MG TABLET PO (18:34)
[2019-07-18 21:00] LABS: Glucose Point of Care 115 (65-105)
--- NOTE | 2019-07-18 21:44 | PC.NURSE ---
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
[2019-07-18 22:00] LABS: Basophils Absolute Auto 0.08 K/mm3 (0.00-0.10); Basophils Percent Auto 0.5 % (0.0-1.0); Eosinophils Absolute Auto 0.13 K/mm3 (0.02-0.50); Eosinophils Percent Auto 0.8 % (1.0-6.0); Hematocrit 34.6 % (37.0-46.0); Hemoglobin 12.1 g/dL (12.4-15.3); Immature Granulocyte Absolute 0.21 K/mm3 (0.00-0.00); Immature Granulocyte Percent A 1.4 % (0.0-0.0); Lymphocytes Absolute Auto 1.58 K/mm3 (1.10-4.50); Lymphocytes Percent Auto 10.3 % (18.0-42.0); Mean Corpuscular Hemoglobin 33.4 pg (27.0-31.0); Mean Corpuscular Volume 95.6 fL (78.0-102.0); Mean Platelet Volume 7.9 fl (8.7-11.0); Monocytes Absolute Auto 1.55 K/mm3 (0.10-0.90); Monocytes Percent Auto 10.1 % (2.0-11.0); Neutrophils Absolute Auto 11.8 K/mm3 (1.7-7.2); Neutrophils Percent Auto 76.9 % (50.0-70.0); Platelet Count Result 383 K/mm3 (150-420); Red Blood Count 3.62 M/mm3 (4.70-6.10); Red Cell Distribution Width 12.6 % (11.6-14.4); White Blood Count 15.3 K/mm3 (4.8-10.8)
[2019-07-18 22:21] LABS: Lactic Acid 0.8 mmol/L (0.4-2.0)
--- NOTE | 2019-07-18 22:22 | PC.NURSE ---
pt taken down for ct
[2019-07-18 22:24] LABS: Alanine Aminotransferase 24 U/L (16-63); Albumin Level 2.7 g/dL (3.4-5.0); Alkaline Phosphatase 140 U/L (46-116); Anion Gap 13.6 mmol/L (7-16); Aspartate Amino Transferase 17 U/L (15-37); Bilirubin,Total 0.4 mg/dL (0.00-1.00); Blood Urea Nitrogen 13 mg/dL (7-18); Carbon Dioxide 25 mmol/L (21-32); Chloride 93 mmol/L (98-108); Estimated CRCL calculation 76 ml/min; Estimated Glomerular Filt Rate > 60; Glucose 120 mg/dL (70-99); Lipase 275 U/L (73-393); Osmolality Calculated 267 mOsm/kg (285-295); Potassium 3.6 mmol/L (3.5-5.1); Sodium 128 mmol/L (136-145); Total Protein 5.5 g/dL (6.4-8.2)
[2019-07-18 22:28] LABS: CRP 4.3 mg/dL (0.0-0.9)
--- NOTE | 2019-07-18 23:42 | PM.IMPN ---
Progress Note: A&P Assessment and Plan (1) Abdominal pain, acute: Onset Date: ~07/18/19 Code(s): R10.9 - Unspecified abdominal pain Status: Acute Assessment and Plan: Pain and distension significantly worse tonight. This could be related to increased paristalsis related to the bisacodyl and/or what appears to be a stricture at the hepatic flexure . Constipation may also be a component. Will treat pain with IV morphine, NPO except for ice chips, IV normal saline. Re-evaluate in AM. Pt may need to be transferred for surgical consultation. Time Spent With Patient Time with patient: less than 15 minutes Subjective Date/time seen: 07/18/19 21:30 Severe RLQ abdominal pain, onset around 20:00. 07/16 CT abd/pelvis showed large amount of persistent stool in the ascending colon and terminal ileum. Findings likely represent resolving enteritis. Given bisacodyl 10 at 1:30 PM. Review of Systems Constitutional: Constitutional: Denies chills and Denies fever(s) Gastrointestinal: Gastrointestinal: Reports as per HPI, Denies nausea and Denies vomiting Exam Const: Other: appears uncomfortable. GI: Other: Abdomen is distended. There is diffuse tenderness with guarding. Percussion of the upper abdomen causes pain in the lower abdomen. Digital rectal exam: No stool in rectal vault. No rectal mass or increased pain with wall palpation. Objective Data Vital Signs Vital Signs: Vital Signs - 24 hr 07/18/19 00:00 07/18/19 02:00 07/18/19 04:00 Temperature 36.6 C 36.7 C Pulse Rate 90 90 104 H Respiratory Rate 20 16 Blood Pressure 158/78 H 168/82 H Pulse Oximetry 93 97 07/18/19 06:00 07/18/19 08:00 07/18/19 10:00 Temperature 36.9 C Pulse Rate 94 94 94 Respiratory Rate 20 Blood Pressure 129/66 Pulse Oximetry 94 07/18/19 12:00 07/18/19 13:58 07/18/19 16:00 Temperature 36.9 C 36.8 C Pulse Rate 91 90 91 Respiratory Rate 16 20 Blood Pressure 143/72 H 154/85 H Pulse Oximetry 93 94 07/18/19 19:58 07/18/19 20:00 Temperature 36.8 C Pulse Rate 85 88 Respiratory Rate 20 Blood Pressure 177/96 H Pulse Oximetry 94 Intake/Output Intake/Output: Intake & Output 07/15/19 07/16/19 07/17/19 07/18/19 23:59 23:59 23:59 23:59 Intake Total 5070 3100 2180 3221.667 Output Total 015 483 1033 Balance 5070 2400 1880 2021.667 Meds/Results Medications: Active Medications Generic Name Dose Route Start Last Admin Trade Name Freq PRN Reason Stop Dose Admin Acetaminophen 500 mg 07/14/19 15:03 07/18/19 18:34 Tylenol Tablet PO 500 mg Q4H PRN Administration Mild Pain (1-3) or Fever Hydrocodone Bitart/Acetaminophen 1 tab 07/14/19 15:03 07/18/19 21:38 Gateway 5-325 Mg PO 1 tab Q6H PRN Administration Pain Rated 4-6 Albuterol 8 puff 07/14/19 16:46 Proventil Hfa INHALATION QID PRN sob Aspirin 81 mg 07/15/19 09:00 07/18/19 09:41 Aspirin Ec PO 81 mg DAILY CARRIE Administration Dextrose 12.5 gm 07/14/19 23:39 Dextrose 50% Syringe IV PUSH PRN PRN Hypoglycemia Protocol Dextrose 12.5 gm 07/18/19 12:16 Dextrose 50% Syringe IV PUSH PRN PRN Hypoglycemia Protocol Duloxetine HCl 20 mg 07/14/19 17:30 07/18/19 17:10 Cymbalta PO 20 mg BID CARRIE Administration Enoxaparin Sodium 40 mg 07/15/19 09:00 07/18/19 09:41 Lovenox SUB-Q 40 mg DAILY CARRIE Administration Glucagon 1 mg 07/14/19 23:39 Glucagon For Inj IM PRN PRN Hypoglycemia Protocol Glucagon 1 mg 07/18/19 12:16 Glucagon For Inj IM PRN PRN Hypoglycemia Protocol Glucose 15 gm 07/14/19 23:39 Glutose 15 PO PRN PRN Hypoglycemia Protocol Glucose 15 gm 07/18/19 12:16 Glutose 15 PO PRN PRN Hypoglycemia Protocol Azithromycin 500 mg in 250 mls @ 250 mls/hr 07/14/19 14:00 07/18/19 14:03 Zithromax IVPB 250 mls/hr Q24H CARRIE Administration
[2019-07-19] VITALS: BP 186/96; PULSE 90; PULSE 93; RESP 20; TEMP 36.6; O2SAT 95
--- NOTE | 2019-07-19 00:15 | PC.NURSE ---
Hospitalist saw pt. Is aware of BP
[2019-07-19] MEDS: MORPHINE SULFATE 4 MG/ML INJ IV PUSH ×2 (00:39→05:13)
--- NOTE | 2019-07-19 02:17 | PC.NURSE ---
0055 New orders received and noted MSO4 4 mg q4 hrs prn, decrease IV fluid to 75 mls/hr , accucheck QID and NPO except for ice chips.
--- NOTE | 2019-07-19 03:15 | PC.NURSE ---
24 hour urine started @ this time.
[2019-07-19 04:00] VITALS: BP 178/94; PULSE 113; PULSE 92; RESP 20; TEMP 36.8; O2SAT 98
--- NOTE | 2019-07-19 04:10 | PC.NURSE ---
IV & telemetry continue.
--- NOTE | 2019-07-19 05:18 | PC.NURSE ---
Pt given 4 mg of MSO4 IVP to relieve pt's c/o lower abdominal pain.
[2019-07-19 05:47] LABS: Basophils Absolute Auto 0.08 K/mm3 (0.00-0.10); Basophils Percent Auto 0.5 % (0.0-1.0); Eosinophils Absolute Auto 0.07 K/mm3 (0.02-0.50); Eosinophils Percent Auto 0.4 % (1.0-6.0); Hematocrit 36.1 % (37.0-46.0); Hemoglobin 12.5 g/dL (12.4-15.3); Immature Granulocyte Absolute 0.34 K/mm3 (0.00-0.00); Immature Granulocyte Percent A 2.1 % (0.0-0.0); Lymphocytes Absolute Auto 1.32 K/mm3 (1.10-4.50); Mean Corpuscular HGB Conc 34.6 g/dL (32.0-36.0); Mean Corpuscular Hemoglobin 33.1 pg (27.0-31.0); Mean Corpuscular Volume 95.5 fL (78.0-102.0); Mean Platelet Volume 8.2 fl (8.7-11.0); Monocytes Absolute Auto 1.28 K/mm3 (0.10-0.90); Monocytes Percent Auto 7.8 % (2.0-11.0); Neutrophils Absolute Auto 13.4 K/mm3 (1.7-7.2); Neutrophils Percent Auto 81.2 % (50.0-70.0); Platelet Count Result 422 K/mm3 (150-420); Red Blood Count 3.78 M/mm3 (4.70-6.10); Red Cell Distribution Width 12.6 % (11.6-14.4); White Blood Count 16.5 K/mm3 (4.8-10.8)
[2019-07-19 05:57] LABS: Glucose Point of Care 321 (65-105)
[2019-07-19 06:03] LABS: Alanine Aminotransferase 25 U/L (16-63); Albumin Level 2.8 g/dL (3.4-5.0); Alkaline Phosphatase 139 U/L (46-116); Anion Gap 22.4 mmol/L (7-16); Aspartate Amino Transferase 17 U/L (15-37); Bilirubin,Total 0.6 mg/dL (0.00-1.00); Blood Urea Nitrogen 13 mg/dL (7-18); Carbon Dioxide 19 mmol/L (21-32); Chloride 90 mmol/L (98-108); Estimated CRCL calculation 81 ml/min; Estimated Glomerular Filt Rate > 60; Glucose 314 mg/dL (70-99); Osmolality Calculated 276 mOsm/kg (285-295); Potassium 4.4 mmol/L (3.5-5.1); Sodium 127 mmol/L (136-145); Total Protein 5.1 g/dL (6.4-8.2)
--- NOTE | 2019-07-19 07:39 | P.PNCROSS_ITS ---
Event Note Event Note Event Note: This note pertains to the encounter the AM of 07/18/19 For this patient encounter, I reviewed the HIDE MILL WORKER or PA documentation, treatment plan, and medical decision making; and I had [id number] time with this patient.
--- NOTE | 2019-07-19 07:39 | PM.EVENT ---
Event Note Event Note Event Note: This note pertains to the encounter the AM of 07/18/19 For this patient encounter, I reviewed the GARAGE DOOR OPENER INSTALLER or PA documentation, treatment plan, and medical decision making; and I had [id number] time with this patient.
[2019-07-19 07:40] LABS: Sodium Urine Random 20 mmol/L (20-110)
[2019-07-19 07:50] VITALS: BP 178/90; PULSE 104; RESP 22; TEMP 36.9; O2SAT 94
[2019-07-19 07:50] LABS: Glucose Point of Care 388 (65-105)
[2019-07-19] MEDS: PANTOPRAZOLE SODIUM IV 40 MG VIAL IV PUSH (08:44)
[2019-07-19] MEDS: ENOXAPARIN 40 MG/0.4 ML SYRINGE SUB-Q (08:44)
[2019-07-19 09:19] LABS: CRP 4.3 mg/dL (0.0-0.9); Lactate Dehydrogenase 175 U/L (85-227)
[2019-07-19 10:05] LABS: Erythrocyte Sedimentation Rate 3 mm/hr (0-20)
[2019-07-19] MEDS: SODIUM CHLORIDE 0.9% IV 1,000 ML 75 ML IV CONT (10:18)
[2019-07-19 10:22] VITALS: PULSE 108; RESP 20; O2SAT 98
--- NOTE | 2019-07-19 11:20 | PC.NURSE ---
Patient was heard from outside of room making gagging noises, upon entering room patient had untapped his NG tube and was removing it himself. There was 150ml of dark brown fluid in intermittent suction canister. Keily LOWRY notifed. Patient refused to have NG replaced.
[2019-07-19 12:00] VITALS: BP 110/60; PULSE 113; RESP 22; TEMP 37.4; O2SAT 96
--- NOTE | 2019-07-19 12:28 | P.DS_ITS ---
DS: Diagnosis Admitting Diagnosis Admitting Diagnosis: Noninfective gastroenteritis and colitis, unspecified <Keily West NP - Last Filed: 07/19/19 18:02> Discharge Diagnosis (1) Gastroenteritis: Code(s): K52.9 - Noninfective gastroenteritis and colitis, unspecified <Keily West NP - Last Filed: 07/19/19 18:02> Status: Acute <Keily West NP - Last Filed: 07/19/19 18:02> Assessment and Plan: * May be an intermittent problem, because today he was distended again , lethargic and had some slight abdominal pain and has not had a bowel movement in 2 days. * May be related to his fluctuant glucose levels * important to keep his glucose levels under 200 * initial CT indicate gastroenteritis * patient able to tolerate meals has not had nausea vomiting * continues Zofran * C DIFF NEGATIVE * avoiding Imodium at this time because the patient's said he was using Imodium at home and it was making him distended and not having regular bowel movements. * He used to take daily Metamucil in the past and have regular bowel movements, we will return to that medication plan. * CT was repeated last night due to increasing distension and reappearance of abdominal pain, with new findings discussed below under small-bowel obstruction <Keily West NP - Last Filed: 07/19/19 18:02> (2) Acute hyponatremia: Code(s): E87.1 - Hypo-osmolality and hyponatremia <Keily West NP - Last Filed: 07/19/19 18:02> Status: Acute <Keily West NP - Last Filed: 07/19/19 18:02> Assessment and Plan: * sodium was again 127 today * possibly secondary to dehydration, Creutzfeldt Ross disease, pituitary tumors, lymphoma * BMP in a.m. * will continue to monitor * started telemetry cardiac monitoring continuously * ordered a random urine sodium level for this morning (found to be WNL) and ordered a 24 hour urine study in process, sending out a Cortisol level. <Keily West NP - Last Filed: 07/19/19 18:02> (3) Diabetes type 1, uncontrolled: Code(s): E10.65 - Type 1 diabetes mellitus with hyperglycemia <Keily West NP - Last Filed: 07/19/19 18:02> Status: Acute <Keily West NP - Last Filed: 07/19/19 18:02> Assessment and Plan: * PATIENT INSULIN PUMP Was removed at admission and STARTED LISPRO 6 UNITS T.I.D. WITH MEALS * may need to increase his 6 units of lispro with meals * continue Accu-Cheks while hypoglycemic protocol * increased sliding scale to HIGH doses * blood sugars in the 300s at admission and for subsequent 2-3 days, tighter control and treatment yesterday and today to keep his glucose less than 200. * Managed to start getting better control with glucose levels of 186 and 115 yesterday late afternoon and evening. <Keily West NP - Last Filed: 07/19/19 18:02> (4) GERD (gastroesophageal reflux disease): Code(s): K21.9 - Gastro-esophageal reflux disease without esophagitis <Keily West NP - Last Filed: 07/19/19 18:02> Status: Acute <Keily West NP - Last Filed: 07/19/19 18:02> Assessment and Plan: * started Protonix * continued as no complaints <Keily West NP - Last Filed: 07/19/19 18:02> (5) Elevated blood pressure reading in office with diagnosis of hypertension: Code(s): I10 - Essential (primary) hypertension <Keily West NP - Last Filed: 07/19/19 18:02> Status: Acute <Keily West NP - Last Filed: 07/19/19 18:02> Assessment and Plan: * blood pressures are well cont
--- NOTE | 2019-07-19 12:28 | PM.DS ---
DS: Diagnosis Admitting Diagnosis Admitting Diagnosis: Noninfective gastroenteritis and colitis, unspecified <Keily West NP - Last Filed: 07/19/19 18:02> Discharge Diagnosis (1) Gastroenteritis: Code(s): K52.9 - Noninfective gastroenteritis and colitis, unspecified <Keily West NP - Last Filed: 07/19/19 18:02> Status: Acute <Keily West NP - Last Filed: 07/19/19 18:02> Assessment and Plan: May be an intermittent problem, because today he was distended again , lethargic and had some slight abdominal pain and has not had a bowel movement in 2 days. May be related to his fluctuant glucose levels important to keep his glucose levels under [address] indicate gastroenteritis patient able to tolerate meals has not had nausea vomiting continues Zofran C DIFF NEGATIVE avoiding Imodium at this time because the patient's said he was using Imodium at home and it was making him distended and not having regular bowel movements. He used to take daily Metamucil in the past and have regular bowel movements, we will return to that medication plan. CT was repeated last night due to increasing distension and reappearance of abdominal pain, with new findings discussed below under small-bowel obstruction <Keily West NP - Last Filed: 07/19/19 18:02> (2) Acute hyponatremia: Code(s): E87.1 - Hypo-osmolality and hyponatremia <Keily West NP - Last Filed: 07/19/19 18:02> Status: Acute <Keily West NP - Last Filed: 07/19/19 18:02> Assessment and Plan: sodium was again 127 today possibly secondary to dehydration, Creutzfeldt Ross disease, pituitary tumors, lymphoma BMP in a.m. will continue to monitor started telemetry cardiac monitoring continuously ordered a random urine sodium level for this morning (found to be WNL) and ordered a 24 hour urine study in process, sending out a Cortisol level. <Keily West NP - Last Filed: 07/19/19 18:02> (3) Diabetes type 1, uncontrolled: Code(s): E10.65 - Type 1 diabetes mellitus with hyperglycemia <Keily West NP - Last Filed: 07/19/19 18:02> Status: Acute <Keily West NP - Last Filed: 07/19/19 18:02> Assessment and Plan: PATIENT INSULIN PUMP Was removed at admission and STARTED LISPRO 6 UNITS T.I.D. WITH MEALS may need to increase his 6 units of lispro with meals continue Accu-Cheks while hypoglycemic protocol increased sliding scale to HIGH doses blood sugars in the 300s at admission and for subsequent 2-3 days, tighter control and treatment yesterday and today to keep his glucose less than 200. Managed to start getting better control with glucose levels of 186 and 115 yesterday late afternoon and evening. <Keily West NP - Last Filed: 07/19/19 18:02> (4) GERD (gastroesophageal reflux disease): Code(s): K21.9 - Gastro-esophageal reflux disease without esophagitis <Keily West NP - Last Filed: 07/19/19 18:02> Status: Acute <Keily West NP - Last Filed: 07/19/19 18:02> Assessment and Plan: started Protonix continued as no complaints <Keily West NP - Last Filed: 07/19/19 18:02> (5) Elevated blood pressure reading in office with diagnosis of hypertension: Code(s): I10 - Essential (primary) hypertension <Keily West NP - Last Filed: 07/19/19 18:02> Status: Acute <Keily West NP - Last Filed: 07/19/19 18:02> Assessment and Plan: blood pressures are well controlled without his losartan WILL CONTINUE to hold HOME MEDICATIONs vital signs is ordered IVFs infusing <Keily West NP - Last Filed: 07/19/19 18:02> (6) PNA (pneumonia): Code(s): J18.9 - Pneumonia, unspecified organism <Keily West NP - Last Filed: 07/19/19 18:02> Status: Acute <Keily West NP - Last File
--- NOTE | 2019-07-19 13:00 | PC.NURSE ---
Report given to Napoleon CANCINO at [facility]. Patient will be going to bed 7. Spoke with about transfer. She would like to be notified when patient leaves in Ambulance.
--- NOTE | 2019-07-19 13:20 | PC.NURSE ---
BP Manually taken decreased to 110/[address] Henley Notified. Patient resting. before falling asleep patient was incoherantly mumbling.
[2019-07-19 13:23] VITALS: BP 115/55
[2019-07-19 13:55] LABS: Glucose Point of Care > 450 (65-105)
--- NOTE | 2019-07-19 14:18 | PC.NURSE ---
NG tube placed by Hillary Auguste RN using proper technique. auscultated stomach positive for placement. XRAY called to verify.
--- NOTE | 2019-07-19 22:39 | PM.EVENT ---
Event Note Event Note Event Note: Patient complains of abdominal pain this morning. States he has been having stools regularly. Denies vomiting. Moderate acute distress. Alert to voice. Regular tachycardia. Extremities are warm dry and pink. Lungs are clear to auscultation bilaterally. Abdomen is distended, diffusely tender. Decreased bowel sounds. Patient's exam is changed markedly since I examined him on Wednesday. Findings resemble acute abdomen and likely obstruction. CT scan suggests mass. NPO, NG and bolus of normal saline while awaiting surgical consult/transfer. I have examined the patient and reviewed the chart. I discussed the patient's care with A Brett OLMEDO and agree with her assessment and plan.
[2019-07-20 05:11] LABS: Primidone 2.5 mg/L (5.0-12.0)
[2019-07-22 04:39] LABS: Osmolality, Urine 622 mOsm/kg (50-1200)
[2019-07-23 07:10] LABS: Cortisol Random 44.1 mcg/dL (***)
--- NOTE | 2019-07-24 07:54 | PCOTNOTE ---
Patient is discharged from skilled OT services as he was transferred to another medical facility for medical care. [place]
== END 2019-07-19 13:45 | disposition short-term general hospital (02) | DRG 374 ==
LOC: CHSED 13:34 → CHS2ND 13:36
PROVIDERS: Family Medicine; Nurse Practitioner; Admitting Provider Emergency Medicine; Emergency Provider Emergency Medicine; PCP Internal Medicine; Visit Provider Emergency Medicine
DX: C18.3 Malignant neoplasm of hepatic flexure (principal); J18.9 Pneumonia, unspecified organism; K56.600 Partial intestinal obstruction, unspecified as to cause; E87.1 Hypo-osmolality and hyponatremia; K52.9 Noninfective gastroenteritis and colitis, unspecified; E11.649 Type 2 diabetes mellitus with hypoglycemia without coma; Z20.828 Contact with and (suspected) exposure to other viral communicable diseases; E86.0 Dehydration; E78.5 Hyperlipidemia, unspecified; K21.9 Gastro-esophageal reflux disease without esophagitis; J44.9 Chronic obstructive pulmonary disease, unspecified; E11.65 Type 2 diabetes mellitus with hyperglycemia; I10 Essential (primary) hypertension; R56.9 Unspecified convulsions; Z87.891 Personal history of nicotine dependence
CPT/HCPCS: 36415; 36600; 70470; 71045; 74176; 74177; 80048; 80053; 80184; 80188; 81001; 82140; 82533; 82805; 83605; 83615; 83690; 83735; 83935; 84100; 84300; 84484; 85025; 85027; 85652; 86140; 87040; 87081; 87086; 87324; 87635; 87880; 93005; 93880; 96361; 96365; 96375; 96376; 97110; 97161; 97165; 97530; 99285; A9270; C9113; C9803; J0456; J0696; J1650; J1815; J2270; J2405; J2543; J3475; J7030; J7042; J7512; Q9965; U0003

== ENCOUNTER 2019-07-19 17:02 | Inpatient (IN) | payer MEDICARE, OTHER, SELFPAY ==
[2019-07-19] VITALS (10 sets, daily range): BP systolic 114–147; BP diastolic 61–73; PULSE 88–113; RESP 15–22; TEMP 36.7–36.9; O2SAT 95–100; BMI 29.9
--- NOTE | ~2019-07-19 | XR_ITS ---
EXAMINATION: XR abdomen NG/feed tube insert EXAM DATE: 07/19/2019 16:15 INDICATION: Feeding tube placement. TECHNIQUE: Frontal projection(s) of the abdomen for interpretation. Correlation is made to CT from 02/2020. FINDINGS: Feeding tube tip and side-port project over epigastric region, likely within the gastric b tavo given its high anterior position on CT. Unremarkable upper abdominal bowel gas pattern, can't nia ntify the dilated bowel seen on CT. Lung bases are clear. IMPRESSION: Feeding tube in expected position. Reviewed, dictated and finalized at location A.
--- NOTE | ~2019-07-19 | XR_ITS ---
EXAMINATION: XR enema water soluble DATE: 07/20/2019 09:47 INDICATION: Colonic stricture. TECHNIQUE: A polisher apprentice radiograph was obtained. A catheter was inserted into the patient's rectum. Contra st was infused by gravity. Fluoroscopic spot images and conventional radiographs were obtained. Fluor oscopy exposure time was 0.7 minutes. The total number of images was 27. COMPARISON: CT abdomen and pelvis 07/18/2019 FINDINGS: There is total occlusion of the distal ascending colon. There are a few scattered diverticu la in the colon. IMPRESSION: 1. Total occlusion of the distal ascending colon suspicious for adenocarcinoma. Reviewed, dictated and finalized at location A.
[2019-07-19 14:26] LABS: Glucose Point of Care 445 (65-105)
--- NOTE | 2019-07-19 15:19 | ADMGEN ---
This patient, Cliff Rodriguez, was admitted to Intensive Care Unit-7. Patient/family oriented to hospital policies and general routines including ID bracelet, bed and alarms, visiting hours, pain management, procedures, bathroom and other care routines, personal items, smoking policy, room service/diet, and visiting hours. Valuables list has been completed. Information on how to activate the Rapid Response Team has been discussed. Patient/Family are encouraged to report perceived risks to care and to ask questions if they do not understand what they are told or what they should do.
[2019-07-19 15:23] LABS: Blood Urea Nitrogen 18 mg/dL (9-20); Calcium 7.6 mg/dL (8.4-10.2); Carbon Dioxide 10 mmol/L (22-30); Chloride 90 mmol/L (98-107); Estimated Glomerular Filt Rate > 60; Glucose 424 mg/dL (75-110); Potassium 4.6 mmol/L (3.4-5.0); Sodium 126 mmol/L (137-145)
--- NOTE | 2019-07-19 15:56 | PM.CNGS ---
Assessment and Plan Assessment and plan (1) Abnormal CT scan, colon: Code(s): R93.3 - Abnormal findings on diagnostic imaging of other parts of digestive tract Status: Acute Assessment and Plan: Patient does not have an acute abdomen by exam. After reviewing the CT scans from July 13 and July 17, I suspect he does have a tumor in the proximal transverse colon that is at least partially obstructing. I will go ahead and have an NG tube placed and get a water-soluble contrast enema to better evaluate this. Prior to his transfer, I thought he would need emergency open right colectomy but with his current medical problems, I think it would be better to optimize his blood sugars and rehydrate him. The colon surgery can at least wait 24 hours to improve his condition. Will check high peak enema to verify there is a lesion as suspected. (2) Diabetes type 1, uncontrolled: Code(s): E10.65 - Type 1 diabetes mellitus with hyperglycemia Status: Acute Assessment and Plan: Being treated in the critical care unit by Dr. Romero and the hospitalist service (3) Acute hyponatremia: Code(s): E87.1 - Hypo-osmolality and hyponatremia Status: Acute (4) Dehydration: Code(s): E86.0 - Dehydration Status: Acute History of Present Illness Consult details Consult date: 07/19/19 Reason for consult: abdominal pain Narrative: Patient is a 68-year-old man who was admitted to the hospital in [place] on July 13 with several days of abdominal pain and distention. He was evaluated in the emergency room and noted to have abdominal distention with diffuse tenderness. He had a normal lactate and normal white blood cell count. CT scan showed evidence of gastroenteritis and possibly right-sided pneumonia even COVID-19. He was tested for SARS 2 carrera virus and was negative. Last night he developed more abdominal distention and pain. I was called by and West the hospitalist in [place] and we discussed the patient. It appears he may have colonic obstruction in the proximal transverse colon. He was transferred here for further management. An NG tube was placed in [place] but the patient pulled it out. Initial evaluation here shows quite an elevated blood sugar of near 500. Looking over the patient's blood sugars a have been very out of control. Several have been in the high 300's and 400's. He is currently in the intensive care unit and is thought to likely have diabetic ketoacidosis. He is seen now in consultation regarding his abdominal pain and abnormal CT findings suggesting obstructing lesion in the proximal transverse colon. He denies any abdominal pain at the present time. He has not vomited since he has been here and denies nausea. Review of Systems Review of Systems: All systems reviewed & are unremarkable except as noted in HPI and below Constitutional: Constitutional: Denies headache(s) ENT: Denies headache(s) Cardiovascular: Cardiovascular: Denies chest pain and Denies dyspnea Respiratory: Respiratory: Denies cough and Denies dyspnea Gastrointestinal: Gastrointestinal: Reports as per HPI, Reports abdominal pain (Had pretty severe pain earlier this morning. None now.), Reports bloating, Reports change in bowel habits and Reports constipation Neurologic: Denies confusion and Denies headache(s) Psychiatric: Psychiatric: Denies confusion [facility] Past Medical History Medical History COPD (chronic obstructive pulmonary disease) Diabetes mellitus Elevated blood pressure reading in office with diagnosis of hypertension GERD (gastroesophageal reflux disease) Hyperlipidemia Seizure Family History Family History Father Diabetes mellitus Other Family history of alcoholism Social History Social History Smoking packs per day: 3 Smoki
[2019-07-19 16:10] LABS: Glucose Point of Care 422 (65-105)
[2019-07-19] MEDS: SODIUM CHLORIDE 0.9% IV 1,000 ML 150 ML IV CONT (16:30)
--- NOTE | 2019-07-19 16:37 | PM.IMHP ---
H&P: HPI History of Present Illness Chief complaint: OBSTRUCTION PNEUMONIA Narrative: Cliff Rodriguez is a 68 year old male is a direct admit from [place]. The patient was found to have non infectious gastroenteritis and colitis. The patient had not had a bowel movement 2 days. The patient did have an NG tube at 1 time but pulled out. The patient's blood glucose levels were under 200 when he was at [facility]. CT scan indicated gastroenteritis. Patient was found to be C diff negative. He was also found to be COVID negative. His sodium came up to 127 today from 03/31 yesterday. His blood sugars had been in the 300s when he 1st went to [facility]. The patient did have an insulin pump but was removed and he was placed on a sliding scale insulin. He was placed on high-dose sliding scale. When he 1st came to [facility] his CT on July 13 was showing multiple central obular ground-glass PACs in the right middle lobe and lower lobes which favors aspiration and/or pneumonia. Is stating that is common pattern for covid 19 however he was found to be negative. Blood cultures were negative x2. And 11 mm nodule in the right adrenal gland likely represents an adenoma the absence of known malignancy. There is still a large volume stool in the ascending colon patient is now seen have persistent but improved ground-glass opacities of the visualized lung bases, consistent with resolving pneumonia. Troponin was negative. You within normal limits. Patient was being treated 1st partial small-bowel obstruction. Surgical team has been consulted and preassembler and inspector as well. The surgery team has been appearance seen the patient. However the patient was found to have DKA upon arrival. As white count was noted to be 16.5 and patient was started on Zosyn per surgical team.. Sodium is now 126. His glucose was noted to be 445 and then 422. A1c is pending. Lactic was not drawn. Patient's anion gap was noted to be 26. DKA protocol has been started. The date of service 07/19/2019 Review of Systems Review of Systems: Narrative: The patient is very hard of hearing. He complained of having pain in his penis from the Salmeron catheter. He is also complaining of abdominal pain. It is difficult to understand this patient's speech as he is edentulous. All systems reviewed & are unremarkable except as noted in HPI and below Constitutional: Constitutional: Reports as per HPI and Reports no additional constitutional complaints Eyes: Eyes: Reports as per HPI and Reports no additional eye complaints ENT: Reports system reviewed and no additional complaints, except as documented and Reports Normal hearing present Cardiovascular: Cardiovascular: Reports no additional cardiovascular complaints Respiratory: Respiratory: Reports no additional respiratory complaints and Reports no additional respiratory complaints Gastrointestinal: Gastrointestinal: Reports as per HPI and Reports no additional gastrointestinal complaints Musculoskeletal: Musculoskeletal: Reports no additional musculoskeletal complaints Integumentary/Breasts: Skin/Breast: Reports system reviewed and no additional complaints, except as docu and Reports as per HPI Neurologic: Reports system reviewed and no additional complaints, except as documented, Reports as per HPI and Reports Normal hearing present Psychiatric: Psychiatric: Reports no additional psychiatric complaints and Reports as per HPI Endocrine: Endocrine: Reports no additional endocrine complaints Hematologic/Lymphatic: Hematologic/Lymphatic: Reports no additional hematologic/lymphatic complaints Allergic/Immunologic: Allergic/Immunologic: Reports no additional allergic/immunologic complaints PMFSH Past Medical History Medical History (Updated 07/19/19 @ 17:10 by Felipa Thomas NP) COPD (chronic obstructive pulmonary disease) Diabetes mellitus Elevated blood pressure reading in office with diagnosis of hypertension GERD (g
[2019-07-19] MEDS: INSULIN HUMAN REGULAR (*BKC) 100 UNITS/ML 9 UNITS IV PUSH (16:50)
[2019-07-19 16:54] LABS: Hemoglobin A1C 7.8 % (<5.7)
[2019-07-19 16:57] LABS: Blood Urea Nitrogen 18 mg/dL (9-20); Calcium 7.9 mg/dL (8.4-10.2); Carbon Dioxide 12 mmol/L (22-30); Chloride 92 mmol/L (98-107); Estimated CRCL calculation 70 ml/min; Estimated Glomerular Filt Rate > 60; Glucose 373 mg/dL (75-110); Magnesium 2.3 mg/dL (1.6-2.3); Phosphorus 4.4 mg/dL (2.5-4.5); Potassium 4.4 mmol/L (3.4-5.0); Sodium 128 mmol/L (137-145)
[2019-07-19 17:29] LABS: Glucose Point of Care 378 (65-105)
[2019-07-19] MEDS: INSULIN HUMAN REGULAR (*BKC) 100 UNITS in SODIUM CHLORIDE 0.9% IV 99 ML 6.4 UNITS IV CONT (17:29)
[2019-07-19] MEDS: THIAMINE HCL 200 MG/2 ML VIAL 100 MG IV PUSH (17:32)
[2019-07-19] MEDS: ENOXAPARIN 40 MG/0.4 ML SYRINGE SUB-Q (17:33)
[2019-07-19] MEDS: FOLIC ACID 1 MG/0.2 ML INJ IV PUSH (17:42)
[2019-07-19 18:10] LABS: Glucose Point of Care 283 (65-105)
[2019-07-19 18:24] LABS: Add Urine Microscopic? YES; Appearance Urine Cloudy (Clear); Bacteria Urine Trace /hpf; Bilirubin Urine Negative (Negative); Blood Urine 2+ (Negative); Color Urine Yellow (Yellow); Glucose Urine UA 3+ mg/dL (Negative); Ketones Urine 2+ mg/dL (Negative); Leukocyte Esterase Ur Negative LEU/UL (NEGATIVE); Mucus Urine Rare /lpf; Nitrate Urine Negative (Negative); Protein Urine 1+ mg/dL (Negative); Specific Grav Ur 1.022 (1.001-1.035); Squamous Epithelial Cell Urine Moderate /hpf (Few); Urobilinogen Urine Negative mg/dL (<2.0)
[2019-07-19 19:26] LABS: Glucose Point of Care 280 (65-105)
[2019-07-19 20:20] LABS: Glucose Point of Care 230 (65-105)
[2019-07-19] MEDS: KCL 20 MEQ/D5/0.45% SOD CHL 1,000 ML 150 ML IV CONT (20:21)
[2019-07-19 21:11] LABS: Blood Urea Nitrogen 18 mg/dL (9-20); Carbon Dioxide 21 mmol/L (22-30); Chloride 95 mmol/L (98-107); Estimated CRCL calculation 70 ml/min; Estimated Glomerular Filt Rate > 60; Glucose 219 mg/dL (75-110); Potassium 3.7 mmol/L (3.4-5.0); Sodium 130 mmol/L (137-145)
[2019-07-19 21:17] LABS: Glucose Point of Care 241 (65-105)
[2019-07-19 22:16] LABS: Glucose Point of Care 200 (65-105)
[2019-07-19 23:19] LABS: Glucose Point of Care 165 (65-105)
[2019-07-20] VITALS (16 sets, daily range): BP systolic 131–174; BP diastolic 52–105; PULSE 73–107; RESP 16–24; TEMP 36.7–37.4; O2SAT 96–100
[2019-07-20 00:25] LABS: Glucose Point of Care 150 (65-105)
[2019-07-20 00:56] LABS: Blood Urea Nitrogen 18 mg/dL (9-20); Calcium 8.1 mg/dL (8.4-10.2); Carbon Dioxide 29 mmol/L (22-30); Chloride 95 mmol/L (98-107); Estimated CRCL calculation 86 ml/min; Estimated Glomerular Filt Rate > 60; Glucose 134 mg/dL (75-110); Potassium 3.6 mmol/L (3.4-5.0); Sodium 130 mmol/L (137-145)
[2019-07-20] MEDS: INSULIN GLARGINE (*BKC) 100 UNITS/ML 35 UNITS SUB-Q (01:45)
[2019-07-20] MEDS: SODIUM CHLORIDE 0.9% IV 1,000 ML 75 ML IV CONT ×2 (01:45→17:24)
[2019-07-20 01:50] LABS: Glucose Point of Care 115 (65-105)
[2019-07-20 03:44] LABS: Glucose Point of Care 97 (65-105)
[2019-07-20 04:48] LABS: Basophils Absolute Auto 0.1 K/mm3 (0.0-0.1); Basophils Percent Auto 0.4 % (0.2-1.2); Eosinophils Percent Auto 0.3 % (0-4.4); Hematocrit 33.8 % (42.0-52.0); Hemoglobin 11.8 g/dL (14.0-18.0); Immature Granulocyte Absolute 0.26 K/mm3 (0.00-0.031); Immature Granulocyte Percent A 1.6 % (0-0.5); Lymphocytes Absolute Auto 1.53 K/mm3 (0.9-3.2); Lymphocytes Percent Auto 9.6 % (18.3-44.2); Mean Corpuscular HGB Conc 34.9 g/dl (32-36); Mean Corpuscular Hemoglobin 33.6 pg (26-34); Mean Corpuscular Volume 96.3 fl (80-100); Mean Platelet Volume 8.5 fl (7.4-10.4); Monocytes Absolute Auto 1.9 K/mm3 (0.1-0.6); Monocytes Percent Auto 11.7 % (2.6-8.5); Neutrophils Absolute Auto 12.2 K/mm3 (1.3-6.7); Neutrophils Percent Auto 76.4 % (45.5-73.1); Platelet Count Result 397 k/mm3 (150-375); Red Blood Count 3.51 M/mm3 (4.6-6.20); Red Cell Distribution Width 13.2 % (11.5-14.5)
[2019-07-20 05:03] LABS: Alanine Aminotransferase 18 U/L (4-50); Albumin Level 3.1 g/dL (3.5-5.1); Alkaline Phosphatase 120 U/L (38-126); Aspartate Amino Transferase 21 U/L (17-59); Bilirubin,Total 0.7 mg/dL (0.2-1.3); Blood Urea Nitrogen 17 mg/dL (9-20); Carbon Dioxide 25 mmol/L (22-30); Chloride 95 mmol/L (98-107); Estimated CRCL calculation 97 ml/min; Estimated Glomerular Filt Rate > 60; Glucose 106 mg/dL (75-110); Lipase 75 U/L (23-300); Magnesium 2.2 mg/dL (1.6-2.3); Potassium 3.5 mmol/L (3.4-5.0); Sodium 130 mmol/L (137-145)
[2019-07-20] MEDS: hydrALAZINE HCL 20 MG/ML VIAL 10 MG IV PUSH ×2 (05:43→22:05)
--- NOTE | 2019-07-20 06:35 | PM.PNGS ---
Progress Note: A&P Assessment and Plan (1) Abnormal CT scan, colon: Code(s): R93.3 - Abnormal findings on diagnostic imaging of other parts of digestive tract Status: Acute Assessment and Plan: No complaints of abdominal pain through the night or this morning. Does have some right-sided abdominal tenderness. White count still elevated at 16,000 thousand but this is less than 2 days ago. Patient to have water-soluble contrast enema this morning as we decided it would better to do that this morning than last night. (2) DKA (diabetic ketoacidoses): Code(s): E11.10 - Type 2 diabetes mellitus with ketoacidosis without coma Status: Acute Assessment and Plan: Blood sugars improved enough to stop insulin drip but still quite high this morning. (3) Alcoholism: Code(s): F10.20 - Alcohol dependence, uncomplicated Status: Acute (4) COPD (chronic obstructive pulmonary disease): Code(s): J44.9 - Chronic obstructive pulmonary disease, unspecified Status: Chronic Subjective Subjective Date/Time Seen: 07/20/19 06:35 No complaints of abdominal pain all night. Patient does complain of headache. Was given IV Tylenol. Was on Precedex to the night but this has been tapered off. He does have a history of tremors. Review of Systems Review of Systems: All systems reviewed & are unremarkable except as noted in HPI and below (HPI) Exam Const: General: comfortable and no acute distress; No confusion Orientation/consciousness: patient oriented x3 and No confusion Resp: Effort & Inspection: normal respiratory effort Auscultation: clear to auscultation bilaterally Cardio: Rate: regular rate Rhythm: regular rhythm GI: Inspection: distended and obesity GI Palp: Yes Soft to palpation, Yes Tenderness to palpation present (GI) (Right side of abdomen more in the right upper quadrant.), No Guarding due to palpation present (GI), No Hernia present, No Palpable mass present and No Rebound tenderness present Auscultation: Hypoactive bowel sounds present Neuro: General: patient oriented x3, no focal motor deficits and No confusion Extrem: General: no calf tenderness and no edema Psych: Affect: normal affect Insight: Good insight present (Psych) Judgement: Good judgement present (Psych) Objective Data Vital Signs Vital Signs: Vital Signs - 24 hr 07/19/19 14:45 07/19/19 15:30 07/19/19 16:00 Temperature 36.7 C 36.8 C Pulse Rate 113 H 108 H Respiratory Rate 19 22 H Blood Pressure 130/70 147/66 H Pulse Oximetry 100 100 100 07/19/19 18:00 07/19/19 19:36 07/19/19 20:00 Temperature 36.9 C Pulse Rate 88 91 93 Respiratory Rate 15 15 16 Blood Pressure 114/61 127/68 Pulse Oximetry 98 98 100 07/19/19 20:50 07/19/19 20:52 07/19/19 22:00 Temperature Pulse Rate 94 99 Respiratory Rate 19 20 Blood Pressure 132/73 Pulse Oximetry 95 100 07/19/19 23:22 07/20/19 00:00 07/20/19 02:00 Temperature 36.8 C Pulse Rate 97 95 97 Respiratory Rate 20 18 19 Blood Pressure 146/67 H 151/77 H Pulse Oximetry 100 100 96 07/20/19 04:00 07/20/19 06:00 Temperature 36.7 C Pulse Rate 98 101 H Respiratory Rate 21 H 24 H Blood Pressure 131/105 H 164/95 H Pulse Oximetry 96 100 Intake/Output Intake/Output: Intake & Output 07/17/19 07/18/19 07/19/19 07/20/19 23:59 23:59 23:59 23:59 Intake Total 100 Output Total 650 700 Balance -550 -700 Meds/Results Medications: Active Medications Generic Name Dose Route Start Last Admin Trade Name Freq PRN Reason Stop Dose Admin Dextrose 12.5 gm 07/20/19 01:15 Dextrose 50% Syringe IV PUSH PRN PRN Hypoglycemia Protocol Enoxaparin Sodium 40 mg 07/20/19 09:00 Lovenox SUB-Q DAILY CARRIE Folic Acid 1 mg 07/20/19 09:00 Folic Acid Inj IV PUSH QAM CARRIE Glucagon 1 mg 07/20/19 01:15 Glucagon For Inj IM PRN PRN Hypoglycemia Protocol Glucose 15 gm
[2019-07-20] MEDS: FOLIC ACID 1 MG/0.2 ML INJ IV PUSH (08:22)
[2019-07-20] MEDS: THIAMINE HCL 200 MG/2 ML VIAL 100 MG IV PUSH (08:22)
[2019-07-20] MEDS: PANTOPRAZOLE SODIUM IV 40 MG VIAL IV PUSH (08:22)
[2019-07-20] MEDS: ENOXAPARIN 40 MG/0.4 ML SYRINGE SUB-Q (08:23)
--- NOTE | 2019-07-20 09:34 | WPDCNINT ---
Assessment and Plan Assessment and plan (1) Abnormal CT scan, colon: Code(s): R93.3 - Abnormal findings on diagnostic imaging of other parts of digestive tract Status: Acute Assessment and Plan: patient with abnormal abdominal a CT scan showing possible obstruction, patient to have order soluble contrast enema this morning - continues to have abdominal pain, NG tube in place, NG to low intermittent suction - surgery following the patient - further management will be based upon enema resolved (2) DKA (diabetic ketoacidoses): Code(s): E11.10 - Type 2 diabetes mellitus with ketoacidosis without coma Status: Acute Assessment and Plan: upon transferred to the ICU here at [facility] [place] [facility], patient's blood sugars were 445, CO2 of 10, elevated anion gap, patient started on insulin infusion per DKA protocol. - Patient was transition overnight to long-acting insulin and sliding scale insulin. - Blood sugars this morning are stable (3) Alcoholism: Code(s): F10.20 - Alcohol dependence, uncomplicated Status: Acute Assessment and Plan: continue thiamine, folic acid - patient was tremulous and was started on Precedex infusion yesterday in the evening, currently discontinue - continue monitor alcohol withdrawal and DTs (4) COPD (chronic obstructive pulmonary disease): Code(s): J44.9 - Chronic obstructive pulmonary disease, unspecified Status: Chronic Assessment and Plan: continue Advair (5) Hypertension: Code(s): I10 - Essential (primary) hypertension Status: Chronic Assessment and Plan: will add p.r.n. hydralazine (6) DVT prophylaxis: Code(s): Z29.9 - Encounter for prophylactic measures, unspecified Status: Acute Assessment and Plan: Lovenox SQ Additional Plan discussed with patient updated with his condition and plan of care. He is aware that he is going to be going for a Hypaque enema to evaluate his obstruction. He has only met the surgeon morning. Code status: Full code Critical care time spent: 41 minutes Due to a high probability of clinically significant, life threatening deterioration, the patient required my highest level of preparedness to intervene emergently and I personally spent this critical care time directly and personally managing the patient. This critical care time included obtaining a history; examining the patient; pulse oximetry; ordering and review of studies; arranging urgent treatment with development of a management plan; evaluation of patient's response to treatment; frequent reassessment; and discussions with other providers. It was exclusive of separately billable procedures and treating other patients and teaching time. 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 CT scan showed evidence of gastroenteritis and possibly Right-sided pneumonia given COVID-19 . SARS-CoV-2 PCR was negative. Patient started to have more abdominal distension and pain on 07/19/2019 in the morning, appeared to have colonic obstruction in the proximal transverse colon. Case was discussed with surgery accepted the patient to [facility], I accepted the patient to the ICU at [facility]. Upon arrival to the ICU patient's blood sugars were noted to be 445, sodium level of 126, CO2 of
[2019-07-20 09:54] LABS: Blood Urea Nitrogen 15 mg/dL (9-20); Carbon Dioxide 22 mmol/L (22-30); Chloride 96 mmol/L (98-107); Estimated CRCL calculation 97 ml/min; Estimated Glomerular Filt Rate > 60; Glucose 157 mg/dL (75-110); Potassium 3.7 mmol/L (3.4-5.0); Sodium 130 mmol/L (137-145)
[2019-07-20 12:13] LABS: Glucose Point of Care 222 (65-105)
[2019-07-20] MEDS: INSULIN ASPART (*BKC) 100 UNITS/ML SUB-Q ×2 (12:27→23:53)
[2019-07-20 14:25] LABS: Carcinoembryonic Antigen 4.3 ng/mL (0.0-3.0)
--- NOTE | 2019-07-20 15:55 | PC.NURSE ---
This patient, Cliff Rodriguez, was transferred to [ [id number]] on 07/20/19 at 1540. Personal belongings sent with patient. Report given to [ RN ]. Appropriate documentation sent with patient.
--- NOTE | 2019-07-20 17:30 | PM.IMPN ---
Progress Note: A&P Assessment and Plan (1) DKA (diabetic ketoacidoses): Code(s): E11.10 - Type 2 diabetes mellitus with ketoacidosis without coma Status: Acute Assessment and Plan: Patient's anion gap was 26. He was started on the DKA protocol. A1c is pending. Patient did have an insulin pump which is been removed he is now on insulin drip. 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 Patient is seen by general surgery recommending surgical evaluation which is scheduled tomorrow further recommendation to follow present patient is feeling better pain is not as severe denies any nausea or vomiting currently denies any fever or chills (2) Hyponatremia: Code(s): E87.1 - Hypo-osmolality and hyponatremia Status: Acute Assessment and Plan: Could be related to the DKA. Could be related to dehydration. Could be due to the diarrhea and gastroenteritis. (3) Hypertension: Code(s): I10 - Essential (primary) hypertension Status: Chronic Assessment and Plan: Patient is NPO at this time and his oral medications are on hold. Will do p.r.n. hydralazine IV. (4) Small bowel obstruction, partial: Code(s): K56.600 - Partial intestinal obstruction, unspecified as to cause Status: Acute Assessment and Plan: NG tube has been placed. Since the patient is in DKA today he will not go to surgery. 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 Anti emetics and IV fluids. Patient is on the IV fluids for the DKA protocol. Pain management as needed. Plan is above (5) Seizure: Code(s): R56.9 - Unspecified convulsions Status: Acute Assessment and Plan: P.r.n. Ativan. (6) Hyperlipidemia: Code(s): E78.5 - Hyperlipidemia, unspecified Status: Chronic Assessment and Plan: Hold pravastatin (7) COPD (chronic obstructive pulmonary disease): Code(s): J44.9 - Chronic obstructive pulmonary disease, unspecified Status: Chronic Assessment and Plan: Continue with inhalers (8) Alcoholism: Code(s): F10.20 - Alcohol dependence, uncomplicated Status: Acute Assessment and Plan: Continue with CIWA patient is on a Precedex drip. IV folic acid and thiamin. Subjective Date/time seen: 07/20/19 17:30 patient is 68-year-old male presented emergency department with abdominal pain is found to have a obstruction possibly secondary to focal adenocarcinoma causing partial colonic obstruction. Patient is seen by general surgery recommending surgical evaluation which is scheduled tomorrow further recommendation to follow present patient is feeling better pain is not as severe denies any nausea or vomiting currently denies any fever or chills Review of Systems Review of Systems: All systems reviewed & are unremarkable except as noted in HPI and below Exam Const: General: comfortable and no acute distress HENMT: General nose exam: Normal nares present Mouth: Yes moist mucous membranes Eyes: Sclera: sclerae normal Neck: Neck: supple Resp: Effort & Inspection: normal respiratory effort Auscultation: clear to auscultation bilaterally Cardio: Rate: regular rate Rhythm: regular rhythm GI: Other: Bowel sounds are faint diffusely tender Skin: General skin exam: normal color Neuro: Speech: normal speech Sensory Exam: normal sensation Extrem: General: normal to inspection Psych: Affect: Anxious affect present Objective Data Vital Signs Vital Signs: Vital Signs - 24 hr 07/19/19 18:00 07/19/19 19:36 07/19/19 20:00 Temperature 98.5 F Pulse Rate 88 91 93 Respiratory Rate 15 15 16 Blood Pressure 114/61 127/68 Pulse Oximetry
[2019-07-20 18:10] LABS: Glucose Point of Care 185 (65-105)
[2019-07-20] MEDS: INSULIN GLARGINE (*BKC) 100 UNITS/ML 20 UNITS SUB-Q (21:25)
[2019-07-20 21:46] LABS: Glucose Point of Care 221 (65-105)
[2019-07-20 23:46] LABS: Glucose Point of Care 247 (65-105)
[2019-07-21] VITALS (22 sets, daily range): BP systolic 111–173; BP diastolic 58–85; PULSE 84–105; RESP 16–20; TEMP 35.9–37.7; O2SAT 92–100
[2019-07-21] MEDS: CHLORHEXIDINE GLUCONATE 4% SOL 120 ML BTL 1 APPLIC TOPICAL (00:31)
[2019-07-21 06:28] LABS: Glucose Point of Care 190 (65-105)
[2019-07-21 08:04] LABS: Glucose Point of Care 183 (65-105)
[2019-07-21] MEDS: PANTOPRAZOLE SODIUM IV 40 MG VIAL IV PUSH (08:18)
[2019-07-21] MEDS: SODIUM CHLORIDE 0.9% IV 1,000 ML 75 ML IV CONT (09:11)
--- NOTE | 2019-07-21 10:25 | PC.NURSE ---
Report called to Maisha CANCINO Preop.
--- NOTE | 2019-07-21 10:28 | PC.NURSE ---
To OR via bed. Family notified via phone that was going to surgery.
[2019-07-21 10:36] LABS: Hematocrit 31.9 % (42.0-52.0); Hemoglobin 10.8 g/dL (14.0-18.0); Mean Corpuscular HGB Conc 33.9 g/dl (32-36); Mean Corpuscular Hemoglobin 33.1 pg (26-34); Mean Corpuscular Volume 97.9 fl (80-100); Mean Platelet Volume 8.8 fl (7.4-10.4); Platelet Count Result 369 k/mm3 (150-375); Red Blood Count 3.26 M/mm3 (4.6-6.20); Red Cell Distribution Width 13.5 % (11.5-14.5); White Blood Count 9.1 K/mm3 (4.5-10.0)
[2019-07-21] MEDS: LACTATED RINGERS 1,000 ML 30 ML IV CONT ×2 (10:45→14:40)
--- NOTE | 2019-07-21 11:04 | WPDANESEPPF ---
Anes - Initial Pre Proc Eval Procedure: Operation Date: 07/21/19 13:00 Proposed Procedures p Open Right Colon Resection - Torito Davenport MD Date/Time: 07/21/19 11:04 Surgeon: Watson Reyes MD Pre Op Diagnosis: DKA, Small bowel obstruction Patient Data Age: 68 Gender: M Height: 5 ft 8 in Weight: 85.6 kg Last Vital Signs Temp 36.9 C 07/21/19 10:40 Pulse 92 07/21/19 10:40 Resp 20 07/21/19 10:40 BP 173/85 H 07/21/19 10:40 Pulse Ox 94 07/21/19 10:40 Allergies Allergy/AdvReac Type Severity Reaction Status Date / Time No Known Allergies Allergy Unverified 01/04/18 11:39 Home Medications Medication Instructions Recorded Confirmed Type Adult One Daily Multivitamin 0.4 mg PO DAILY 07/04/19 07/19/19 History Combivent Respimat 1 puff INHALATION QID 07/04/19 07/19/19 History aspirin [Adult Low Dose Aspirin] 81 mg PO DAILY 07/04/19 07/19/19 History duloxetine 20 mg PO BID 07/04/19 07/19/19 History fluticasone propion-salmeterol 1 ea INHALATION BID 07/04/19 07/19/19 History [Advair Diskus] insulin lispro [Humalog U-100 0 unit SUBCUT DAILY 07/04/19 07/19/19 History Insulin] loratadine 10 mg PO DAILY 07/04/19 07/19/19 History montelukast 10 mg PO DAILY 07/04/19 07/19/19 History pantoprazole 40 mg PO DAILY 07/04/19 07/19/19 History pravastatin 10 mg PO DAILY 07/04/19 07/19/19 History primidone 50 mg PO BID 07/04/19 07/19/19 History verapamil 240 mg PO HS 07/04/19 07/19/19 History losartan [Cozaar] 100 mg PO DAILY 30 Days #60 tablet 07/05/19 07/19/19 Rx Laboratory Tests 07/20/19 07/20/19 07/20/19 12:10 13:18 13:18 WBC RBC Hgb Hct MCV MCH MCHC RDW Plt Count MPV Sodium Potassium Chloride Carbon Dioxide BUN Creatinine Estim Creat Clear Calc Estimated GFR Glucose POC Capillary Glucose 222 mg/dl H mg/dl (65-105) Calcium Carcinoembryonic Ag 4.3 ng/mL H ng/mL (0.0-3.0) Blood Type O Positive Antibody Screen Negative 07/20/19 07/20/19 07/20/19 17:30 21:25 23:43 WBC RBC Hgb Hct MCV MCH MCHC RDW Plt Count MPV Sodium Potassium Chloride Carbon Dioxide BUN Creatinine Estim Creat Clear Calc Estimated GFR Glucose POC Capillary Glucose 185 mg/dl H mg/dl 221 mg/dl H mg/dl 247 mg/dl H mg/dl (65-105) (65-105) (65-105) Calcium Carcinoembryonic Ag Blood Type Antibody Screen 07/21/19 07/21/19 07/21/19 06:22 07:59 09:51 WBC 9.1 K/mm3 K/mm3 (4.5-10.0) RBC 3.26 M/mm3 L M/mm3 (4.6-6.20) Hgb 10.8 g/dL L g/dL (14.0-18.0) Hct 31.9 % L % (42.0-52.0) MCV 97.9 fl fl (80-100) MCH 33.1 pg pg (26-34) MCHC 33.9 g/dl g/dl (32-36) RDW 13.5 % % (11.5-14.5) Plt Count 369 k/mm3 k/mm3 (150-375) MPV 8.8 fl fl (7.4-10.4) Sodium Potassium Chloride Carbon Dioxide BUN Creatinine Estim Creat Clear Calc Estimated GFR Glucose POC Capillary Glucose 190 mg/dl H mg/dl 183 mg/dl H mg/dl (65-105) (65-105) Calcium Carcinoembryonic Ag Blood Type Antibody Screen 07/21/19 09:51 WBC RBC Hgb Hct MCV MCH MCHC RDW Plt Count MPV Sodium Pending Potassium Pending Chloride P
[2019-07-21 11:14] LABS: Blood Urea Nitrogen 9 mg/dL (9-20); Calcium 7.9 mg/dL (8.4-10.2); Carbon Dioxide 23 mmol/L (22-30); Chloride 101 mmol/L (98-107); Estimated CRCL calculation 100 ml/min; Estimated Glomerular Filt Rate > 60; Glucose 186 mg/dL (75-110); Potassium 3.5 mmol/L (3.4-5.0); Sodium 135 mmol/L (137-145)
--- NOTE | 2019-07-21 14:43 | PM.IMPN ---
Progress Note: A&P Assessment and Plan (1) DKA (diabetic ketoacidoses): Code(s): E11.10 - Type 2 diabetes mellitus with ketoacidosis without coma Status: Acute Assessment and Plan: Patient's anion gap was 26. He was started on the DKA protocol. A1c is pending. Patient did have an insulin pump which is been removed he is now on insulin drip. 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 Patient was seen by general surgery recommending surgical evaluation which is scheduled for later today further recommendation to follow, today patient states is not passing any gas and no BM, at present patient with NG tube, is feeling better pain is not as severe denies any nausea or vomiting currently denies any fever or chills (2) Hyponatremia: Code(s): E87.1 - Hypo-osmolality and hyponatremia Status: Acute Assessment and Plan: Could be related to the DKA. Could be related to dehydration. Could be due to the diarrhea and gastroenteritis. (3) Hypertension: Code(s): I10 - Essential (primary) hypertension Status: Chronic Assessment and Plan: Patient is NPO at this time and his oral medications are on hold. Will do p.r.n. hydralazine IV. (4) Small bowel obstruction, partial: Code(s): K56.600 - Partial intestinal obstruction, unspecified as to cause Status: Acute Assessment and Plan: NG tube has been placed. Since the patient is in DKA he will not go to surgery. 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 Anti emetics and IV fluids. Patient is on the IV fluids for the DKA protocol. Pain management as needed. Plan is above 07/21/19 14:43 patient is 68-year-old male presented emergency department with abdominal pain is found to have a obstruction possibly secondary to focal adenocarcinoma causing partial colonic obstruction. Patient was seen by general surgery recommending surgical evaluation which is scheduled for later today further recommendation to follow, today patient states is not passing any gas and no BM, at present patient with NG tube, is feeling better pain is not as severe denies any nausea or vomiting currently denies any fever or chills (5) Seizure: Code(s): R56.9 - Unspecified convulsions Status: Acute Assessment and Plan: P.r.n. Ativan. (6) Hyperlipidemia: Code(s): E78.5 - Hyperlipidemia, unspecified Status: Chronic Assessment and Plan: Hold pravastatin (7) COPD (chronic obstructive pulmonary disease): Code(s): J44.9 - Chronic obstructive pulmonary disease, unspecified Status: Chronic Assessment and Plan: Continue with inhalers (8) Alcoholism: Code(s): F10.20 - Alcohol dependence, uncomplicated Status: Acute Assessment and Plan: Continue with CIWA patient is on a Precedex drip. IV folic acid and thiamin. Subjective Date/time seen: 07/21/19 14:43 patient is 68-year-old male presented emergency department with abdominal pain is found to have a obstruction possibly secondary to focal adenocarcinoma causing partial colonic obstruction. Patient was seen by general surgery recommending surgical evaluation which is scheduled for later today further recommendation to follow, today patient states is not passing any gas and no BM, at present patient with NG tube, is feeling better pain is not as severe denies any nausea or vomiting currently denies any fever or chills Review of Systems Review of Systems: All systems reviewed & are unremarkable except as noted in HPI and below Exam Const: General: no acute distress and uncomfortable HENMT: General nose exam: Normal nares present Other: NG tub
--- NOTE | 2019-07-21 14:51 | PM.PROC ---
Procedure Note - Detailed Date of procedure: 07/21/19 Pre-op diagnosis: DKA, Small bowel obstruction Post-op diagnosis: same Procedure performed: Right hemicolectomy Description of procedure: The patient was taken to surgery and induced into general anesthesia. The abdomen was prepped and draped. A midline incision was made and dissection down through the midline fascia was carried out. Abdominal exploration was then carried out. There was no evidence of liver metastases. The distal small bowel, cecum and ascending colon were all quite dilated as expected by reviewing the CT scan and other imaging. The surgery was started by freeing the lateral peritoneal attachments to the cecum and proximal ascending colon. This was difficult as the bowel was quite dilated and it was hard to expose the area that we were dissecting. Eventually, continued dissection of the lateral peritoneal attachments allowed us to mobilize the ascending colon on its mesentery. I also divided the distal ileum near the root of its mesentery and then dissected in the retroperitoneal plane to mobilize the distal ileum as well. We continued our dissection up towards the hepatic flexure. We were able to eviscerate a fair amount of the ascending colon. By this time however, I was able to palpate the tumor in the proximal transverse colon. It was stuck posteriorly to Gerota's fascia. Fortunately it had not invaded the kidney or the duodenum. It was difficult to dissect the hepatic flexure from the retroperitoneum but I was able to do this taking some of Gerota's fascia with the tumor. I divided the hepato colic ligaments as well. Most of this dissection was done with either the cautery or the Harmonic scalpel. Vascular structures were mostly divided with the Harmonic scalpel. Some clamps and Vicryl ties were also used. Once the tumor was off the kidney, I went to the greater curve of the stomach and entered the lesser sac. I then dissected towards the pylorus freeing the transverse colon mesentery and mobilizing the stomach away from the area of the tumor. Further division of some adhesions and attachments near the tumor to the retroperitoneum allowed the tumor to be mobilized and the proximal transverse colon brought up into the wound. I then went back to the distal ileal mesentery and, using the Harmonic scalpel, divided the mesentery up to the distal ileum where I chose to do the proximal resection. The TLC 75 was then used to divide the ileum in this area. I then mobilized the ascending colon mesentery using the Harmonic scalpel. The ileocolic artery was doubly clamped, divided, and ligated with 0 Vicryl ties. More of the ascending colon mesentery was divided up to the hepatic flexure. The mesentery at the hepatic flexure was then also divided using the Harmonic scalpel. The right branch of the middle colic artery was divided using the Harmonic 7. Unfortunately this did not provide very good hemostasis and I had to control some bleeding there with suture ligatures of 3 0 Vicryl. This successfully controlled the bleeding from the ends of the right branch. I continued division of the transverse colon mesentery staying near its root. Eventually I divided enough to where I could start dividing the mesentery up to the mid transverse colon. This was done with the Harmonic scalpel. I divided the omentum at this point such that the proximal transverse colon omentum would go with the specimen. The remainder of the omentum would stay with the rest of the transverse colon. I then divided the mid transverse colon with the TLC 75 stapler as well. This allowed me to pass the right colon specimen off. I then reviewed all the areas of dissection in the right colic gutter and retroperitoneum. This area was irrigated with warm saline and recheck. Hemostasis was achieved to good effect. I ran the entire small bowel and checked the remainder of the colon. No other abnormalities were noted. The distal i
[2019-07-21 15:52] LABS: Glucose Point of Care 270 (65-105)
--- NOTE | 2019-07-21 15:54 | SUR.PHASEI ---
1555; DR OCHOA NOTIFIED OF BLOOD SUGAR 270. NO NEW ORDERS
[2019-07-21] MEDS: KCL 40 MEQ/0.9% SOD CHL 1,000 ML 125 ML IV CONT (16:51)
[2019-07-21 17:19] LABS: Glucose Point of Care 301 (65-105)
[2019-07-21] MEDS: INSULIN ASPART (*BKC) 100 UNITS/ML SUB-Q (17:20)
[2019-07-21] MEDS: INSULIN GLARGINE (*BKC) 100 UNITS/ML 20 UNITS SUB-Q (20:55)
[2019-07-21] MEDS: MORPHINE SULFATE 2 MG/ML INJ IV PUSH (20:58)
[2019-07-21 23:34] LABS: Glucose Point of Care 187 (65-105)
[2019-07-22] VITALS (10 sets, daily range): BP systolic 161–180; BP diastolic 78–88; PULSE 77–111; RESP 14–22; TEMP 36.4–37.2; O2SAT 96–99
[2019-07-22] MEDS: MORPHINE SULFATE 4 MG/ML INJ IV PUSH (00:07)
[2019-07-22] MEDS: KCL 40 MEQ/0.9% SOD CHL 1,000 ML 125 ML IV CONT ×2 (01:51→10:41)
[2019-07-22] MEDS: INSULIN ASPART (*BKC) 100 UNITS/ML SUB-Q (05:52)
[2019-07-22 06:14] LABS: Glucose Point of Care 204 (65-105)
[2019-07-22 06:19] LABS: Hematocrit 34.9 % (42.0-52.0); Hemoglobin 11.6 g/dL (14.0-18.0); Mean Corpuscular HGB Conc 33.2 g/dl (32-36); Mean Corpuscular Hemoglobin 32.6 pg (26-34); Mean Platelet Volume 8.6 fl (7.4-10.4); Platelet Count Result 396 k/mm3 (150-375); Red Blood Count 3.56 M/mm3 (4.6-6.20); Red Cell Distribution Width 13.8 % (11.5-14.5); White Blood Count 15.5 K/mm3 (4.5-10.0)
[2019-07-22 06:41] LABS: Alanine Aminotransferase 24 U/L (4-50); Albumin Level 3.1 g/dL (3.5-5.1); Alkaline Phosphatase 82 U/L (38-126); Aspartate Amino Transferase 31 U/L (17-59); Bilirubin,Total 0.6 mg/dL (0.2-1.3); Blood Urea Nitrogen 14 mg/dL (9-20); Carbon Dioxide 27 mmol/L (22-30); Chloride 104 mmol/L (98-107); Estimated CRCL calculation 87 ml/min; Estimated Glomerular Filt Rate > 60; Glucose 232 mg/dL (75-110); Potassium 4.6 mmol/L (3.4-5.0); Sodium 138 mmol/L (137-145)
[2019-07-22] MEDS: PANTOPRAZOLE SODIUM IV 40 MG VIAL IV PUSH (08:29)
[2019-07-22] MEDS: FOLIC ACID 1 MG/0.2 ML INJ IV PUSH (08:29)
[2019-07-22] MEDS: ENOXAPARIN 40 MG/0.4 ML SYRINGE SUB-Q (08:29)
[2019-07-22] MEDS: THIAMINE HCL 200 MG/2 ML VIAL 100 MG IV PUSH (08:30)
--- NOTE | 2019-07-22 11:10 | PM.PNGS ---
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 Status post right hemicolectomy. Continue NG tube and Salmeron catheter for today. Will decrease potassium and IV fluids as it has come up significantly from yesterday. Up in chair and up at bedside today. Will start IV Calot ill or for better pain control. (2) Colon obstruction: Code(s): K56.609 - Unspecified intestinal obstruction, unspecified as to partial versus complete obstruction Status: Acute Assessment and Plan: Awaiting return of bowel function after right hemicolectomy yesterday. (3) Diabetes type 1, uncontrolled: Code(s): E10.65 - Type 1 diabetes mellitus with hyperglycemia Status: Chronic Assessment and Plan: Blood sugars running about 200 or low 200s (4) Hypertension: Code(s): I10 - Essential (primary) hypertension Status: Chronic (5) Alcoholism: Code(s): F10.20 - Alcohol dependence, uncomplicated Status: Chronic Subjective Subjective Date/Time Seen: 07/22/19 11:10 Post Op day: 1 Patient reports: no new complaints, still having pain, no flatus and no bowel movement Review of Systems Review of Systems: All systems reviewed & are unremarkable except as noted in HPI and below Constitutional: Constitutional: Denies headache(s) ENT: Denies headache(s) Cardiovascular: Cardiovascular: Denies chest pain and Denies dyspnea Respiratory: Respiratory: Denies cough and Denies dyspnea Gastrointestinal: Gastrointestinal: Reports as per HPI Neurologic: Denies confusion and Denies headache(s) Psychiatric: Psychiatric: Denies confusion Exam Const: General: comfortable and no acute distress; No confusion Orientation/consciousness: patient oriented x3 and No confusion Resp: Effort & Inspection: normal respiratory effort Auscultation: clear to auscultation bilaterally Cardio: Rate: regular rate Rhythm: regular rhythm GI: Inspection: non-distended and incision ( Dressing dry and intact) GI Palp: Yes Soft to palpation, Yes Tenderness to palpation present (GI) ( pretty uncomfortable from incisional tenderness), No Guarding due to palpation present (GI) and No Rebound tenderness present Auscultation: Hypoactive bowel sounds present Neuro: General: no focal motor deficits, CN's II-XI intact bilaterally and No confusion Cranial nerves: Yes CN's II-XII intact bilaterally, Yes facial symmetry and Yes Midline tongue present Speech: normal speech Motor exam (neuro): Tremors during motor activity present Extrem: General: no calf tenderness and no edema Psych: Affect: normal affect Insight: Good insight present (Psych) Judgement: Good judgement present (Psych) Objective Data Vital Signs Vital Signs: Vital Signs - 24 hr 07/21/19 14:40 07/21/19 14:55 07/21/19 15:10 Temperature 35.9 C L 36.1 C L Pulse Rate 84 84 88 Respiratory Rate 18 20 20 Blood Pressure 160/78 H 122/73 132/71 Pulse Oximetry 96 99 95 07/21/19 15:25 07/21/19 15:40 07/21/19 16:01 Temperature Pulse Rate 90 90 90 Respiratory Rate 20 19 20 Blood Pressure 131/65 130/75 125/66 Pulse Oximetry 96 98 95 07/21/19 16:15 07/21/19 16:30 07/21/19 16:45 Temperature 36.3 C L 36.8 C Pulse Rate 92 90 94 Respiratory Rate 20 18 18 Blood Pressure 118/58 L 111/62 125/60 Pulse Oximetry 95 96 94 07/21/19 17:30 07/21/19 18:30 07/21/19 20:00 Temperature 36.7 C 36.6 C Pulse Rate 96 99 100 Respiratory Rate 18 20 Blood Pressure 138/69 148/65 H Pulse Oximetry 96 100 07/21/19 20:05 07/21/19 20:18 07/21/19 21:13 Temperature 36.7 C 37.7 C H Pulse Rate 101 H Respiratory Rate 20 Blood Pressure 120/69 Pulse Oximetry 92 96 07/22/19 00:00 07/22/19 04:28 07/22/19 05:27 Temperature 36.6 C Pulse Rate 111 H 100 96 Respiratory Rate 18
--- NOTE | 2019-07-22 12:19 | PM.IMPN ---
Progress Note: A&P Assessment and Plan (1) DKA (diabetic ketoacidoses): Code(s): E11.10 - Type 2 diabetes mellitus with ketoacidosis without coma Status: Acute Assessment and Plan: Patient's anion gap was 26. He was started on the DKA protocol. A1c is pending. Patient did have an insulin pump which is been removed he is now on insulin drip. 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 07/22/19 12:19 patient is 68-year-old male presented emergency department with abdominal pain is found to have a obstruction possibly secondary to focal adenocarcinoma causing partial colonic obstruction. Patient was seen by general surgery recommending surgical evaluation and patient was taken to OR on 07/20 and had right hemicolectomy POD 1, and possiblen malignant mass was removed to relieve obstruction, patient is on NG tube, seen by surgery team awaiting return of bowl function, patient is clinically stable and pain is controlled, deneis any fever or chills. (2) Hyponatremia: Code(s): E87.1 - Hypo-osmolality and hyponatremia Status: Acute Assessment and Plan: Could be related to the DKA. Could be related to dehydration. Could be due to the diarrhea and gastroenteritis. (3) Hypertension: Code(s): I10 - Essential (primary) hypertension Status: Chronic Assessment and Plan: Patient is NPO at this time and his oral medications are on hold. Will do p.r.n. hydralazine IV. (4) Small bowel obstruction, partial: Code(s): K56.600 - Partial intestinal obstruction, unspecified as to cause Status: Acute Assessment and Plan: NG tube has been placed. Since the patient is in DKA he will not go to surgery. 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 Anti emetics and IV fluids. Patient is on the IV fluids for the DKA protocol. Pain management as needed. Plan is above patient is 68-year-old male presented emergency department with abdominal pain is found to have a obstruction possibly secondary to focal adenocarcinoma causing partial colonic obstruction. Patient was seen by general surgery recommending surgical evaluation which is scheduled for later today further recommendation to follow, today patient states is not passing any gas and no BM, at present patient with NG tube, is feeling better pain is not as severe denies any nausea or vomiting currently denies any fever or chills, plan is above (5) Seizure: Code(s): R56.9 - Unspecified convulsions Status: Acute Assessment and Plan: P.r.n. Ativan. (6) Hyperlipidemia: Code(s): E78.5 - Hyperlipidemia, unspecified Status: Chronic Assessment and Plan: Hold pravastatin (7) COPD (chronic obstructive pulmonary disease): Code(s): J44.9 - Chronic obstructive pulmonary disease, unspecified Status: Chronic Assessment and Plan: Continue with inhalers (8) Alcoholism: Code(s): F10.20 - Alcohol dependence, uncomplicated Status: Chronic Assessment and Plan: Continue with CIWA patient is on a Precedex drip. IV folic acid and thiamin. Subjective Date/time seen: 07/22/19 12:19 patient is 68-year-old male presented emergency department with abdominal pain is found to have a obstruction possibly secondary to focal adenocarcinoma causing partial colonic obstruction. Patient was seen by general surgery recommending surgical evaluation and patient was taken to OR on 07/20 and had right hemicolectomy POD 1, and possiblen malignant mass was removed to relieve obstruction, patient is on NG tube, seen by surgery team awaiting return of bowl function, patient is clinically stable and pain is controlled, deneis any fever or chills. Review of Systems Review of Systems: All systems reviewed & are unremarkable except as noted in HPI and below Ex
[2019-07-22 12:30] LABS: Glucose Point of Care 197 (65-105)
[2019-07-22] MEDS: IBUPROFEN IV 800 MG/200 ML 800 MG/200 ML BAG 400 MG IVPB ×2 (12:52→18:15)
[2019-07-22] MEDS: KCL 20MEQ/0.9% SOD CHL 1,000 ML 100 ML IV CONT (14:13)
[2019-07-22 18:13] LABS: Glucose Point of Care 182 (65-105)
[2019-07-22] MEDS: hydrALAZINE HCL 20 MG/ML VIAL 10 MG IV PUSH (20:41)
[2019-07-22] MEDS: INSULIN GLARGINE (*BKC) 100 UNITS/ML 20 UNITS SUB-Q (20:43)
[2019-07-23] VITALS (11 sets, daily range): BP systolic 147–170; BP diastolic 66–81; PULSE 96–113; RESP 14–20; TEMP 35.8–36.8; O2SAT 95–100
[2019-07-23] MEDS: IBUPROFEN IV 800 MG/200 ML 800 MG/200 ML BAG 400 MG IVPB ×5 (00:06→23:23)
[2019-07-23] MEDS: KCL 20MEQ/0.9% SOD CHL 1,000 ML 100 ML IV CONT (00:11)
[2019-07-23 00:14] LABS: Glucose Point of Care 174 (65-105)
--- NOTE | 2019-07-23 01:20 | PC.NURSE ---
Patient showing increased restlessness. Noted holding groin area with complaints of continued pain; described as cramping and pressure. States he was attempting to pass gas. Patient educated on dangers of bearing down. Verbalized understanding.
[2019-07-23] MEDS: MORPHINE SULFATE 2 MG/ML INJ IV PUSH (02:09)
--- NOTE | 2019-07-23 05:01 | PC.NURSE ---
4 cups of ice chips for intake
[2019-07-23 05:59] LABS: Glucose Point of Care 97 (65-105)
[2019-07-23 07:02] LABS: Hematocrit 30.3 % (42.0-52.0); Mean Corpuscular Hemoglobin 32.3 pg (26-34); Mean Corpuscular Volume 97.7 fl (80-100); Mean Platelet Volume 9.2 fl (7.4-10.4); Platelet Count Result 384 k/mm3 (150-375); Red Cell Distribution Width 14.1 % (11.5-14.5); White Blood Count 11.5 K/mm3 (4.5-10.0)
[2019-07-23 07:28] LABS: Alanine Aminotransferase 22 U/L (4-50); Alkaline Phosphatase 78 U/L (38-126); Aspartate Amino Transferase 30 U/L (17-59); Bilirubin,Total 0.3 mg/dL (0.2-1.3); Blood Urea Nitrogen 13 mg/dL (9-20); Calcium 7.9 mg/dL (8.4-10.2); Carbon Dioxide 28 mmol/L (22-30); Chloride 110 mmol/L (98-107); Estimated CRCL calculation 100 ml/min; Estimated Glomerular Filt Rate > 60; Glucose 98 mg/dL (75-110); Potassium 4.1 mmol/L (3.4-5.0); Sodium 141 mmol/L (137-145)
[2019-07-23] MEDS: ENOXAPARIN 40 MG/0.4 ML SYRINGE SUB-Q (08:37)
[2019-07-23] MEDS: PANTOPRAZOLE SODIUM IV 40 MG VIAL IV PUSH (08:38)
[2019-07-23] MEDS: THIAMINE HCL 200 MG/2 ML VIAL 100 MG IV PUSH (08:38)
[2019-07-23] MEDS: FOLIC ACID 1 MG/0.2 ML INJ IV PUSH (08:40)
[2019-07-23 11:40] LABS: Glucose Point of Care 99 (65-105)
[2019-07-23] MEDS: BUMETANIDE INJ 1 MG/4 ML VIAL 2 MG IV PUSH (12:15)
--- NOTE | 2019-07-23 14:18 | PM.IMPN ---
Progress Note: A&P Assessment and Plan (1) DKA (diabetic ketoacidoses): Code(s): E11.10 - Type 2 diabetes mellitus with ketoacidosis without coma Status: Acute Assessment and Plan: Patient's anion gap was 26. He was started on the DKA protocol. A1c is pending. Patient did have an insulin pump which is been removed he is now on insulin drip. 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 07/23/19 14:18 patient is 68-year-old male presented emergency department with abdominal pain is found to have a obstruction possibly secondary to focal adenocarcinoma causing partial colonic obstruction. Patient was seen by general surgery recommending surgical evaluation and patient was taken to OR on 07/20 and had right hemicolectomy POD 2, and possible malignant mass was removed to relieve obstruction, patient is on NG tube, today patient states is passing gas but no BM, seen by surgery team will remove the NG tube started on clear liquids will continue to monitor, patient is clinically stable and pain is controlled, deneis any fever or chills. (2) Hyponatremia: Code(s): E87.1 - Hypo-osmolality and hyponatremia Status: Acute Assessment and Plan: Could be related to the DKA. Could be related to dehydration. Could be due to the diarrhea and gastroenteritis. (3) Hypertension: Code(s): I10 - Essential (primary) hypertension Status: Chronic Assessment and Plan: Patient is NPO at this time and his oral medications are on hold. Will do p.r.n. hydralazine IV. (4) Small bowel obstruction, partial: Code(s): K56.600 - Partial intestinal obstruction, unspecified as to cause Status: Acute Assessment and Plan: NG tube has been placed. Since the patient is in DKA he will not go to surgery. 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 Anti emetics and IV fluids. Patient is on the IV fluids for the DKA protocol. Pain management as needed. Plan is above patient is 68-year-old male presented emergency department with abdominal pain is found to have a obstruction possibly secondary to focal adenocarcinoma causing partial colonic obstruction. Patient was seen by general surgery recommending surgical evaluation which is scheduled for later today further recommendation to follow, today patient states is not passing any gas and no BM, at present patient with NG tube, is feeling better pain is not as severe denies any nausea or vomiting currently denies any fever or chills, plan is above (5) Seizure: Code(s): R56.9 - Unspecified convulsions Status: Acute Assessment and Plan: P.r.n. Ativan. (6) Hyperlipidemia: Code(s): E78.5 - Hyperlipidemia, unspecified Status: Chronic Assessment and Plan: Hold pravastatin (7) COPD (chronic obstructive pulmonary disease): Code(s): J44.9 - Chronic obstructive pulmonary disease, unspecified Status: Chronic Assessment and Plan: Continue with inhalers (8) Alcoholism: Code(s): F10.20 - Alcohol dependence, uncomplicated Status: Chronic Assessment and Plan: Continue with CIWA patient is on a Precedex drip. IV folic acid and thiamin. Subjective Date/time seen: 07/23/19 14:18 patient is 68-year-old male presented emergency department with abdominal pain is found to have a obstruction possibly secondary to focal adenocarcinoma causing partial colonic obstruction. Patient was seen by general surgery recommending surgical evaluation and patient was taken to OR on 07/20 and had right hemicolectomy POD 2, and possible malignant mass was removed to relieve obstruction, patient is on NG tube, today patient states is passing gas but no BM, seen by surgery team will remove the NG tube started on clear liquids will continue to monitor, patient is clinically stabl
[2019-07-23 16:30] LABS: Glucose Point of Care 292 (65-105)
[2019-07-23] MEDS: POTASSIUM CHLORIDE 20 MEQ TABLET.ER 40 MEQ PO (16:30)
[2019-07-23] MEDS: INSULIN ASPART (*BKC) 100 UNITS/ML SUB-Q ×2 (16:30→23:05)
[2019-07-23 19:50] LABS: Glucose Point of Care 363 (65-105)
[2019-07-23] MEDS: INSULIN GLARGINE (*BKC) 100 UNITS/ML 20 UNITS SUB-Q (20:00)
[2019-07-23 23:06] LABS: Glucose Point of Care 297 (65-105)
[2019-07-24] VITALS (12 sets, daily range): BP systolic 127–178; BP diastolic 58–81; PULSE 89–103; RESP 14–20; TEMP 36.6–36.7; O2SAT 96–98; BMI 30.2
[2019-07-24] MEDS: IBUPROFEN IV 800 MG/200 ML 800 MG/200 ML BAG 400 MG IVPB (05:11)
[2019-07-24 05:25] LABS: Hemoglobin 9.9 g/dL (14.0-18.0); Mean Corpuscular HGB Conc 34.1 g/dl (32-36); Mean Corpuscular Hemoglobin 32.9 pg (26-34); Mean Corpuscular Volume 96.3 fl (80-100); Mean Platelet Volume 9.1 fl (7.4-10.4); Platelet Count Result 361 k/mm3 (150-375); Red Blood Count 3.01 M/mm3 (4.6-6.20); Red Cell Distribution Width 13.5 % (11.5-14.5); White Blood Count 10.2 K/mm3 (4.5-10.0)
[2019-07-24 05:26] LABS: Glucose Point of Care 75 (65-105)
[2019-07-24 05:42] LABS: Alanine Aminotransferase 22 U/L (4-50); Alkaline Phosphatase 82 U/L (38-126); Aspartate Amino Transferase 30 U/L (17-59); Bilirubin,Total 0.3 mg/dL (0.2-1.3); Blood Urea Nitrogen 10 mg/dL (9-20); Calcium 8.4 mg/dL (8.4-10.2); Carbon Dioxide 31 mmol/L (22-30); Chloride 101 mmol/L (98-107); Estimated CRCL calculation 87 ml/min; Estimated Glomerular Filt Rate > 60; Glucose 76 mg/dL (75-110); Potassium 3.4 mmol/L (3.4-5.0); Sodium 135 mmol/L (137-145)
[2019-07-24] MEDS: BUMETANIDE INJ 1 MG/4 ML VIAL 2 MG IV PUSH (08:04)
[2019-07-24] MEDS: POTASSIUM CHLORIDE 20 MEQ TABLET.ER 40 MEQ PO ×3 (08:04→17:23)
[2019-07-24] MEDS: ENOXAPARIN 40 MG/0.4 ML SYRINGE SUB-Q (08:05)
[2019-07-24] MEDS: THIAMINE HCL 200 MG/2 ML VIAL 100 MG IV PUSH (08:06)
[2019-07-24] MEDS: PANTOPRAZOLE 40 MG TABLET PO (08:06)
[2019-07-24] MEDS: FOLIC ACID 1 MG/0.2 ML INJ IV PUSH (08:08)
--- NOTE | 2019-07-24 08:22 | PM.PNGS ---
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 No palpable liver metastases at surgery. (2) Colon obstruction: Code(s): K56.609 - Unspecified intestinal obstruction, unspecified as to partial versus complete obstruction Status: Resolved Assessment and Plan: Doing well status post right colectomy 3 days ago. Will advance to diabetic regular diet. DC [place] catheter. Increase ambulation. Start daily dressing changes. Continue to diurese with Bumex. (3) Hypokalemia: Code(s): E87.6 - Hypokalemia Status: Acute Assessment and Plan: Increase potassium supplementation. Bumex diuresis is likely the cause. (4) Diabetes type 1, uncontrolled: Code(s): E10.65 - Type 1 diabetes mellitus with hyperglycemia Status: Chronic Assessment and Plan: Blood sugars were around 300 through the night although this morning they are better. Subjective Subjective Date/Time Seen: 07/24/19 08:22 Post Op day: 3 Patient reports: no new complaints, feels better, tolerating liquids well, bowel movement and afebrile Review of Systems Review of Systems: All systems reviewed & are unremarkable except as noted in HPI and below Constitutional: Constitutional: Denies headache(s) ENT: Denies headache(s) Cardiovascular: Cardiovascular: Denies chest pain and Denies dyspnea Respiratory: Respiratory: Denies cough and Denies dyspnea Gastrointestinal: Gastrointestinal: Reports as per HPI Neurologic: Denies confusion and Denies headache(s) Psychiatric: Psychiatric: Denies confusion Exam Const: General: comfortable and no acute distress; No confusion Orientation/consciousness: patient oriented x3 and No confusion GI: Inspection: incision ( incision looks good, dry and clean, healing) GI Palp: Yes Soft to palpation, Yes Tenderness to palpation present (GI), No Guarding due to palpation present (GI) and No Rebound tenderness present Auscultation: normal bowel sounds Neuro: General: patient oriented x3, no focal motor deficits and No confusion Extrem: General: no calf tenderness and no edema Psych: Affect: normal affect Insight: Good insight present (Psych) Judgement: Good judgement present (Psych) Objective Data Vital Signs Vital Signs: Vital Signs - 24 hr 07/23/19 08:43 07/23/19 12:00 07/23/19 14:04 Temperature 35.8 C L Pulse Rate 102 H 113 H Respiratory Rate 18 Blood Pressure 169/66 H Pulse Oximetry 95 98 07/23/19 16:00 07/23/19 20:00 07/23/19 20:06 Temperature Pulse Rate 107 H 98 Respiratory Rate 20 Blood Pressure Pulse Oximetry 98 07/23/19 22:00 07/24/19 00:00 07/24/19 04:00 Temperature 36.8 C Pulse Rate 97 98 95 Respiratory Rate 18 Blood Pressure 147/69 H Pulse Oximetry 100 07/24/19 05:51 Temperature 36.7 C Pulse Rate 98 Respiratory Rate 18 Blood Pressure 160/81 H Pulse Oximetry 97 Intake/Output Intake/Output: Intake & Output 07/21/19 07/22/19 07/23/19 07/24/19 23:59 23:59 23:59 23:59 Intake Total 1500 3847 4954 1600 Output Total 1215 1475 3000 1150 Balance 285 2372 1954 450 Meds/Results Medications: Active Medications Generic Name Dose Route Start Last Admin Trade Name Freq PRN Reason Stop Dose Admin Acetaminophen 500 mg 07/23/19 11:30 Tylenol Tablet PO Q6H PRN Mild Pain (1-3) or Fever Hydrocodone Bitart/Acetaminophen 1 tab 07/23/19 11:30 [place] 5-325 Mg PO Q4H PRN Pain Rated 4-6 Hydrocodone Bitart/Acetaminophen 1 tab 07/23/19 11:30 07/24/19 06:07 [place] 7.5-325 Mg PO 1 tab Q4H PRN Administration Pain Rated 7-10 Bumetanide 2 mg 07/24/19 09:00 07/24/19 08:04 Bumex Inj IV PUSH 2 mg QAM CARRIE Administration Dextrose 12.5 gm 07/20/19 01:15 Dextrose 50% [place]
[2019-07-24] MEDS: INSULIN ASPART (*BKC) 100 UNITS/ML SUB-Q (11:16)
[2019-07-24 13:25] LABS: Glucose Point of Care 255 (65-105)
--- NOTE | 2019-07-24 13:35 | PM.IMPN ---
Progress Note: A&P Assessment and Plan (1) DKA (diabetic ketoacidoses): Code(s): E11.10 - Type 2 diabetes mellitus with ketoacidosis without coma Status: Acute Assessment and Plan: Patient's anion gap was 26. He was started on the DKA protocol. A1c is pending. Patient did have an insulin pump which is been removed he is now on insulin drip. DW dairy management specialist we will start the patient on Lantus 20 units at the bedtime with sliding scale, patient is now NPO will monitor with sliding scale. 07/24/19 13:35 patient is 68-year-old male presented emergency department with abdominal pain is found to have a obstruction possibly secondary to focal adenocarcinoma causing partial colonic obstruction. Patient was seen by general surgery recommending surgical evaluation and patient was taken to OR on 07/20 and had right hemicolectomy POD 3, and possible malignant mass was removed to relieve obstruction, pathalogy is pending, on 07/22 patient had a BN, off NG tube, was on clear liquis, today patient was seen by surgery team started on regular diabetes diet which is tolerating, patient stats doing better been able to walk with PT patient is clinically stable and pain is controlled, deneis any fever or chills. will continue to diureses with Bumex as patientis developing dependent edema. (2) Hyponatremia: Code(s): E87.1 - Hypo-osmolality and hyponatremia Status: Acute Assessment and Plan: Could be related to the DKA. Could be related to dehydration. Could be due to the diarrhea and gastroenteritis. (3) Hypertension: Code(s): I10 - Essential (primary) hypertension Status: Chronic Assessment and Plan: Patient is NPO at this time and his oral medications are on hold. Will do p.r.n. hydralazine IV. (4) Small bowel obstruction, partial: Code(s): K56.600 - Partial intestinal obstruction, unspecified as to cause Status: Acute Assessment and Plan: NG tube has been placed. Since the patient is in DKA he will not go to surgery. 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 Anti emetics and IV fluids. Patient is on the IV fluids for the DKA protocol. Pain management as needed. Plan is above patient is 68-year-old male presented emergency department with abdominal pain is found to have a obstruction possibly secondary to focal adenocarcinoma causing partial colonic obstruction. Patient was seen by general surgery recommending surgical evaluation which is scheduled for later today further recommendation to follow, today patient states is not passing any gas and no BM, at present patient with NG tube, is feeling better pain is not as severe denies any nausea or vomiting currently denies any fever or chills, plan is above (5) Seizure: Code(s): R56.9 - Unspecified convulsions Status: Acute Assessment and Plan: P.r.n. Ativan. (6) Hyperlipidemia: Code(s): E78.5 - Hyperlipidemia, unspecified Status: Chronic Assessment and Plan: Hold pravastatin (7) COPD (chronic obstructive pulmonary disease): Code(s): J44.9 - Chronic obstructive pulmonary disease, unspecified Status: Chronic Assessment and Plan: Continue with inhalers (8) Alcoholism: Code(s): F10.20 - Alcohol dependence, uncomplicated Status: Chronic Assessment and Plan: Continue with CIWA patient is on a Precedex drip. IV folic acid and thiamin. Subjective Date/time seen: 07/24/19 13:35 patient is 68-year-old male presented emergency department with abdominal pain is found to have a obstruction possibly secondary to focal adenocarcinoma causing partial colonic obstruction. Patient was seen by general surgery recommending surgical evaluation and patient was taken to OR on 07/20 and had right hemicolectomy POD 3, and possible malignant mass was removed to relieve obstruction, pathalogy is pending, on 07/22 patient had a BN, off NG
--- NOTE | 2019-07-24 13:39 | PCOTNOTE ---
Attempted OT evaluation this afternoon. Unable to see due to pt's condition. RN reports that the patient has a wound consult for his feet and wants him off his feet with them elevated until then. Will continue to attempt.
[2019-07-24] MEDS: INSULIN ASPART (*BKC) 100 UNITS/ML 9 UNITS SUB-Q (17:22)
[2019-07-24 17:43] LABS: Glucose Point of Care 168 (65-105)
[2019-07-24] MEDS: MELATONIN 3 MG TABLET PO (20:12)
[2019-07-24 20:15] LABS: Glucose Point of Care 103 (65-105)
[2019-07-24] MEDS: hydrALAZINE HCL 20 MG/ML VIAL 10 MG IV PUSH (21:16)
[2019-07-24 23:37] LABS: Glucose Point of Care 206 (65-105)
[2019-07-25] VITALS (12 sets, daily range): BP systolic 146–171; BP diastolic 77; PULSE 89–117; RESP 16–20; TEMP 36.2–36.6; O2SAT 94–98
[2019-07-25 02:23] LABS: Glucose Point of Care 208 (65-105)
[2019-07-25 05:37] LABS: Hemoglobin 9.2 g/dL (14.0-18.0); Mean Corpuscular HGB Conc 34.1 g/dl (32-36); Mean Corpuscular Hemoglobin 32.9 pg (26-34); Mean Corpuscular Volume 96.4 fl (80-100); Mean Platelet Volume 9.2 fl (7.4-10.4); Platelet Count Result 364 k/mm3 (150-375); Red Cell Distribution Width 13.3 % (11.5-14.5); White Blood Count 9.8 K/mm3 (4.5-10.0)
[2019-07-25 05:49] LABS: Alanine Aminotransferase 21 U/L (4-50); Albumin Level 2.6 g/dL (3.5-5.1); Alkaline Phosphatase 75 U/L (38-126); Aspartate Amino Transferase 33 U/L (17-59); Bilirubin,Total 0.4 mg/dL (0.2-1.3); Blood Urea Nitrogen 9 mg/dL (9-20); Calcium 8.2 mg/dL (8.4-10.2); Carbon Dioxide 31 mmol/L (22-30); Chloride 97 mmol/L (98-107); Estimated CRCL calculation 87 ml/min; Estimated Glomerular Filt Rate > 60; Glucose 205 mg/dL (75-110); Potassium 4.1 mmol/L (3.4-5.0); Sodium 131 mmol/L (137-145)
[2019-07-25 05:52] LABS: Glucose Point of Care 210 (65-105)
[2019-07-25] MEDS: INSULIN ASPART (*BKC) 100 UNITS/ML SUB-Q (05:52)
--- NOTE | 2019-07-25 07:28 | PM.PNGS ---
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 Progressing well without any signs of complication from his right colon resection. Will DC antibiotics tomorrow. Possibly home Wednesday or if others agree. (3) COPD (chronic obstructive pulmonary disease): Code(s): J44.9 - Chronic obstructive pulmonary disease, unspecified Status: Chronic (4) Diabetes type 1, uncontrolled: Code(s): E10.65 - Type 1 diabetes mellitus with hyperglycemia Status: Chronic Subjective Subjective Date/Time Seen: 07/25/19 07:29 Patient in a deep sleep this morning. I gently tried to arouse him but could not get him to wake up. I conferred with the nurse that had him last night. He has been up for several days and after some [place] is now sleeping. He has been neurologically normal until he fell asleep early this morning. He has had no complaints regarding his surgery or eating per nursing. Exam GI: Inspection: non-distended, incision (Incision looks good, healing well) and obesity GI Palp: Yes Soft to palpation Auscultation: normal bowel sounds Objective Data Vital Signs Vital Signs: Vital Signs - 24 hr 07/24/19 08:00 07/24/19 08:53 07/24/19 12:00 Temperature 36.6 C Pulse Rate 91 102 H 97 Respiratory Rate 14 Blood Pressure 127/58 L Pulse Oximetry 96 07/24/19 16:00 07/24/19 20:00 07/24/19 20:27 Temperature 36.6 C Pulse Rate 94 91 89 Respiratory Rate 14 Blood Pressure 178/77 H Pulse Oximetry 98 07/24/19 21:44 07/24/19 21:46 07/24/19 22:06 Temperature Pulse Rate 103 H Respiratory Rate 20 Blood Pressure 132/62 Pulse Oximetry 97 07/25/19 00:00 07/25/19 03:58 07/25/19 04:00 Temperature 36.6 C Pulse Rate 117 H 96 98 Respiratory Rate 18 Blood Pressure 146/77 H Pulse Oximetry 95 Intake/Output Intake/Output: Intake & Output 07/22/19 07/23/19 07/24/19 07/25/19 23:59 23:59 23:59 23:59 Intake Total 3847 4954 3030 600 Output Total 1475 3000 2470 Balance 2372 1954 560 600 Meds/Results Medications: Active Medications Generic Name Dose Route Start Last Admin Trade Name Freq PRN Reason Stop Dose Admin Acetaminophen 500 mg 07/23/19 11:30 Tylenol Tablet PO Q6H PRN Mild Pain (1-3) or Fever Hydrocodone Bitart/Acetaminophen 1 tab 07/23/19 11:30 07/24/19 22:07 [place] 5-325 Mg PO 1 tab Q4H PRN Administration Pain Rated 4-6 Hydrocodone Bitart/Acetaminophen 1 tab 07/23/19 11:30 07/25/19 02:24 [place] 7.5-325 Mg PO 1 tab Q4H PRN Administration Pain Rated 7-10 Dextrose 12.5 gm 07/20/19 01:15 Dextrose 50% Syringe IV PUSH PRN PRN Hypoglycemia Protocol Enoxaparin Sodium 40 mg 07/20/19 09:00 07/24/19 08:05 Lovenox SUB-Q 40 mg DAILY CARRIE Administration Folic Acid 1 mg 07/20/19 09:00 07/24/19 08:08 Folic Acid Inj IV PUSH 1 mg QAM CARRIE Administration Glucagon 1 mg 07/20/19 01:15 Glucagon For Inj IM PRN PRN Hypoglycemia Protocol Glucose 15 gm 07/20/19 01:15 Glutose 15 PO PRN PRN Hypoglycemia Protocol Hydralazine HCl 10 mg 07/20/19 09:49 07/24/19 21:16 Apresoline Hcl Inj IV PUSH 10 mg Q6H PRN Administration Blood Pressure - High Piperacillin/Tazobactam/Dextrose 3.375 gm in 50 mls @ 100 mls/hr 07/19/19 18:00 07/25/19 05:47 Zosyn 3.375 Gm/D5w 50ml Pm IVPB Infused Q6HR CARRIE Infusion Dextrose 1,000 mls @ 100 mls/hr 07/20/19 01:15 Dextrose 5% 1,000 Ml IVPB PRN PRN Hypoglycemia Protocol
[2019-07-25 07:51] LABS: Glucose Point of Care 194 (65-105)
[2019-07-25] MEDS: POTASSIUM CHLORIDE 20 MEQ TABLET.ER 40 MEQ PO ×3 (08:02→16:52)
[2019-07-25] MEDS: INSULIN ASPART (*BKC) 100 UNITS/ML 9 UNITS SUB-Q ×2 (08:04→16:56)
[2019-07-25] MEDS: FOLIC ACID 1 MG/0.2 ML INJ IV PUSH (08:30)
[2019-07-25] MEDS: ENOXAPARIN 40 MG/0.4 ML SYRINGE SUB-Q (08:30)
[2019-07-25] MEDS: THIAMINE HCL 200 MG/2 ML VIAL 100 MG IV PUSH (08:31)
[2019-07-25] MEDS: PANTOPRAZOLE 40 MG TABLET PO (08:31)
[2019-07-25 11:13] LABS: Glucose Point of Care 55 (65-105)
[2019-07-25 11:51] LABS: Glucose Point of Care 84 (65-105)
[2019-07-25] MEDS: ONDANSETRON INJ 4 MG/2 ML VIAL IV PUSH (13:15)
[2019-07-25 16:24] LABS: Glucose Point of Care 191 (65-105)
[2019-07-25] MEDS: CALCIUM CARBONATE (TUMS) 500 MG (200 MG ELEMENTAL) PO (17:05)
--- NOTE | 2019-07-25 17:28 | PM.IMPN ---
Progress Note: A&P Assessment and Plan (1) DKA (diabetic ketoacidoses): Code(s): E11.10 - Type 2 diabetes mellitus with ketoacidosis without coma Status: Acute Assessment and Plan: Patient's anion gap was 26. He was started on the DKA protocol. A1c is pending. Patient did have an insulin pump which is been removed he is now on insulin drip. DW datastage architect we will start the patient on Lantus 20 units at the bedtime with sliding scale, patient is now NPO will monitor with sliding scale. 07/25/19 17:28 patient is 68-year-old male presented emergency department with abdominal pain is found to have a obstruction possibly secondary to focal adenocarcinoma causing partial colonic obstruction. Patient was seen by general surgery recommending surgical evaluation and patient was taken to OR on 07/20 and had right hemicolectomy POD 3, and possible malignant mass was removed to relieve obstruction, pathalogy is pending, on 07/22 patient had a BM, off NG tube, was on clear liquis, on 07/23 patient was seen by surgery team started on regular diabetes diet which is tolerating, patient stats doing better been able to walk with PT patient is clinically stable and pain is controlled, deneis any fever or chills. will continue to diureses with Bumex as patientis developing dependent edema wound patient is seen by wound team and being treated daily dressing change and keeping feel elated when in the bed, if remains clinically stable may discharge his tomorrow or Thurdsay. (2) Hyponatremia: Code(s): E87.1 - Hypo-osmolality and hyponatremia Status: Acute Assessment and Plan: Could be related to the DKA. Could be related to dehydration. Could be due to the diarrhea and gastroenteritis. (3) Hypertension: Code(s): I10 - Essential (primary) hypertension Status: Chronic Assessment and Plan: Patient is NPO at this time and his oral medications are on hold. Will do p.r.n. hydralazine IV. (4) Small bowel obstruction, partial: Code(s): K56.600 - Partial intestinal obstruction, unspecified as to cause Status: Acute Assessment and Plan: NG tube has been placed. Since the patient is in DKA he will not go to surgery. 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 Anti emetics and IV fluids. Patient is on the IV fluids for the DKA protocol. Pain management as needed. Plan is above patient is 68-year-old male presented emergency department with abdominal pain is found to have a obstruction possibly secondary to focal adenocarcinoma causing partial colonic obstruction. Patient was seen by general surgery recommending surgical evaluation which is scheduled for later today further recommendation to follow, today patient states is not passing any gas and no BM, at present patient with NG tube, is feeling better pain is not as severe denies any nausea or vomiting currently denies any fever or chills, plan is above (5) Seizure: Code(s): R56.9 - Unspecified convulsions Status: Acute Assessment and Plan: P.r.n. Ativan. (6) Hyperlipidemia: Code(s): E78.5 - Hyperlipidemia, unspecified Status: Chronic Assessment and Plan: Hold pravastatin (7) COPD (chronic obstructive pulmonary disease): Code(s): J44.9 - Chronic obstructive pulmonary disease, unspecified Status: Chronic Assessment and Plan: Continue with inhalers (8) Alcoholism: Code(s): F10.20 - Alcohol dependence, uncomplicated Status: Chronic Assessment and Plan: Continue with CIWA patient is on a Precedex drip. IV folic acid and thiamin. Subjective Date/time seen: 07/25/19 17:28 patient is 68-year-old male presented emergency department with abdominal pain is found to have a obstruction possibly secondary to focal adenocarcinoma causing partial colonic obstruction. Patient was seen by general surgery recommending surgical evaluation an
[2019-07-25] MEDS: hydrALAZINE HCL 20 MG/ML VIAL 10 MG IV PUSH (21:06)
[2019-07-25] MEDS: MELATONIN 3 MG TABLET PO (21:07)
[2019-07-25 21:10] LABS: Glucose Point of Care 126 (65-105)
[2019-07-25] MEDS: INSULIN GLARGINE (*BKC) 100 UNITS/ML 20 UNITS SUB-Q (21:13)
[2019-07-26] VITALS (9 sets, daily range): BP systolic 150–182; BP diastolic 78–87; PULSE 90–117; RESP 18–20; TEMP 36.4–36.8; O2SAT 97–100
[2019-07-26] MEDS: CALCIUM CARBONATE (TUMS) 500 MG (200 MG ELEMENTAL) PO ×3 (02:23→21:03)
[2019-07-26] MEDS: hydrALAZINE HCL 20 MG/ML VIAL 10 MG IV PUSH ×2 (05:29→20:02)
[2019-07-26 06:08] LABS: Glucose Point of Care 155 (65-105)
[2019-07-26 06:11] LABS: Hematocrit 29.5 % (42.0-52.0); Hemoglobin 9.8 g/dL (14.0-18.0); Mean Corpuscular HGB Conc 33.2 g/dl (32-36); Mean Corpuscular Hemoglobin 32.6 pg (26-34); Mean Platelet Volume 9.5 fl (7.4-10.4); Platelet Count Result 404 k/mm3 (150-375); Red Blood Count 3.01 M/mm3 (4.6-6.20); Red Cell Distribution Width 13.2 % (11.5-14.5); White Blood Count 9.8 K/mm3 (4.5-10.0)
[2019-07-26 06:26] LABS: Alanine Aminotransferase 26 U/L (4-50); Albumin Level 3.1 g/dL (3.5-5.1); Alkaline Phosphatase 94 U/L (38-126); Aspartate Amino Transferase 37 U/L (17-59); Bilirubin,Total 0.4 mg/dL (0.2-1.3); Blood Urea Nitrogen 7 mg/dL (9-20); Calcium 8.7 mg/dL (8.4-10.2); Carbon Dioxide 31 mmol/L (22-30); Chloride 91 mmol/L (98-107); Estimated CRCL calculation 100 ml/min; Estimated Glomerular Filt Rate > 60; Glucose 146 mg/dL (75-110); Potassium 4.4 mmol/L (3.4-5.0); Sodium 125 mmol/L (137-145)
[2019-07-26] MEDS: POTASSIUM CHLORIDE 20 MEQ TABLET.ER 40 MEQ PO ×3 (08:06→16:18)
[2019-07-26] MEDS: THIAMINE HCL 200 MG/2 ML VIAL 100 MG IV PUSH (08:07)
[2019-07-26] MEDS: PANTOPRAZOLE 40 MG TABLET PO (08:07)
[2019-07-26] MEDS: ENOXAPARIN 40 MG/0.4 ML SYRINGE SUB-Q (08:07)
[2019-07-26] MEDS: FOLIC ACID 1 MG/0.2 ML INJ IV PUSH (08:07)
--- NOTE | 2019-07-26 10:35 | PCNWS ---
Weekly nutritional screen. Patient is tolerating current diet with adequate intake. No weight loss reported. No nutritional needs at this time.
[2019-07-26] MEDS: INSULIN ASPART (*BKC) 100 UNITS/ML SUB-Q (11:50)
[2019-07-26] MEDS: INSULIN ASPART (*BKC) 100 UNITS/ML 9 UNITS SUB-Q (11:51)
[2019-07-26 12:02] LABS: Glucose Point of Care 201 (65-105)
--- NOTE | 2019-07-26 13:08 | PM.PNGS ---
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 Incision healing well and pain is well-controlled. Tolerating a regular diet and bowels are moving. Pathology showed moderately differentiated adenocarcinoma, pT4b pN0 pMX. Discussed pathology with patient in detail and questions answered. Will discontinue IV Zosyn today. Hopefully, if the patient continues to improve, he can be discharged in the next 1-2 days. (2) Hyponatremia: Code(s): E87.1 - Hypo-osmolality and hyponatremia Status: Acute Assessment and Plan: Sodium down to 125 on morning labs. Will put the patient on a 1500 cc fluid restriction diet and monitor labs in the am. Discussed with Dr. Davenport as well as Hospitalist. (3) Colon obstruction: Code(s): K56.609 - Unspecified intestinal obstruction, unspecified as to partial versus complete obstruction Status: Resolved Assessment and Plan: S/p right hemicolectomy on 07/21/[address] Davenport. See plan above. (4) COPD (chronic obstructive pulmonary disease): Code(s): J44.9 - Chronic obstructive pulmonary disease, unspecified Status: Chronic (5) Diabetes type 1, uncontrolled: Code(s): E10.65 - Type 1 diabetes mellitus with hyperglycemia Status: Chronic Assessment and Plan: Blood glucose overnight and into this morning appear to be fairly controlled in the 120-150's. Additional Plan Discussed plan of care with Dr. Davenport. Subjective Subjective Date/Time Seen: 07/26/19 11:08 Post Op day: 5 (Right hemicolectomy) Patient reports: no new complaints, tolerating a regular diet, voiding w/o difficulty, flatus and bowel movement Interval history: Patient feeling well this morning. States he is still tolerating a diet without nausea, vomiting, or bloating. Reports minimal abdominal incisional pain with movement, but tolerable. Reports bowel movement this morning. Complaints of continued lower extremity edema. No other complaints at this time. Review of Systems Review of Systems: All systems reviewed & are unremarkable except as noted in HPI and below Cardiovascular: Cardiovascular: Denies chest pain Respiratory: Respiratory: Denies cough and Denies dyspnea Gastrointestinal: Gastrointestinal: Reports as per HPI Exam Const: General: comfortable, no acute distress, alert and awake Orientation/consciousness: patient oriented x3 GI: Inspection: non-distended, incision (Incision clean and dry, no drainage, healing well) and obesity GI Palp: Yes Soft to palpation, Yes Tenderness to palpation present (GI) (minimal incisional tenderness and mild RLQ tenderness), No Guarding due to palpation present (GI), No Hernia present and No Rebound tenderness present Auscultation: normal bowel sounds Rectal Exam: deferred Skin: Rashes: no rashes Neuro: General: moves all extremities and no focal motor deficits Extrem: General: no calf tenderness and edema bilateral (BLE pitting edema 2-3+) Other: Bilateral feet dressing clean and dry. Psych: Speech and movement: Clear speech present Affect: normal affect Attitude: cooperative Insight: Good insight present (Psych) Judgement: Good judgement present (Psych) Objective Data Vital Signs Vital Signs: Vital Signs - 24 hr 07/25/19 14:40 07/25/19 16:00 07/25/19 19:56 Temperature 36.2 C L 36.6 C Pulse Rate 93 91 94 Respiratory Rate 18 16 Blood Pressure 155/77 H 171/77 H Pulse Oximetry 96 98 07/25/19 20:00 07/25/19 20:16 07/25/19 20:21 Temperature Pulse Rate 91 89 89 Respiratory Rate 20 Blood Pressure Pulse Oximetry 96 07/26/19 00:00 07/26/19 04:00 07/26/19 04:37 Temperature 36.5 C Pulse Rate 117 H 90 95 Respiratory Rate 18 Blood Pressure 160/81 H Pulse Oximetry 97 07/26/19 08:00 Temperature Pulse Rat
--- NOTE | 2019-07-26 14:45 | PM.IMPN ---
Progress Note: A&P Assessment and Plan (1) DKA (diabetic ketoacidoses): Code(s): E11.10 - Type 2 diabetes mellitus with ketoacidosis without coma Status: Acute Assessment and Plan: Patient's anion gap was 26. He was started on the DKA protocol. A1c is pending. Patient did have an insulin pump which is been removed he is now on insulin drip. DW riveter hand we will start the patient on Lantus 20 units at the bedtime with sliding scale, patient is now NPO will monitor with sliding scale. 07/26/19 14:45 patient is 68-year-old male presented emergency department with abdominal pain is found to have a obstruction possibly secondary to focal adenocarcinoma causing partial colonic obstruction. Patient was seen by general surgery recommending surgical evaluation and patient was taken to OR on 07/20 and had right hemicolectomy POD 4, and possible malignant mass was removed to relieve obstruction, pathalogy is pending, on 07/22 patient had a BM, off NG tube, was on clear liquis, on 07/23 patient was seen by surgery team started on regular diabetes diet which is tolerating, patient stats doing better been able to walk with PT patient is clinically stable and pain is controlled, deneis any fever or chills. will continue to diureses with Bumex as patientis developing dependent edema wound patient is seen by wound team and being treated daily dressing change and keeping feel elated when in the bed, today over all patient is doing well he is eating, he has had BM, he insisting to go home, however today his sodium dropped to 125, per nursing he is not drinking much water, does not appear dehydrated his BUN/creatine is low, he does not have malignancy, he does have alcohol hx but he been in the hospital for close 2 week, another possibilty he is on Bumex will consult plate setter for their recommendation. (2) Hyponatremia: Code(s): E87.1 - Hypo-osmolality and hyponatremia Status: Acute Assessment and Plan: Could be related to the DKA. Could be related to dehydration. Could be due to the diarrhea and gastroenteritis. (3) Hypertension: Code(s): I10 - Essential (primary) hypertension Status: Chronic Assessment and Plan: Patient is NPO at this time and his oral medications are on hold. Will do p.r.n. hydralazine IV. (4) Small bowel obstruction, partial: Code(s): K56.600 - Partial intestinal obstruction, unspecified as to cause Status: Acute Assessment and Plan: NG tube has been placed. Since the patient is in DKA he will not go to surgery. 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 Anti emetics and IV fluids. Patient is on the IV fluids for the DKA protocol. Pain management as needed. Plan is above patient is 68-year-old male presented emergency department with abdominal pain is found to have a obstruction possibly secondary to focal adenocarcinoma causing partial colonic obstruction. Patient was seen by general surgery recommending surgical evaluation which is scheduled for later today further recommendation to follow, today patient states is not passing any gas and no BM, at present patient with NG tube, is feeling better pain is not as severe denies any nausea or vomiting currently denies any fever or chills, plan is above (5) Seizure: Code(s): R56.9 - Unspecified convulsions Status: Acute Assessment and Plan: P.r.n. Ativan. (6) Hyperlipidemia: Code(s): E78.5 - Hyperlipidemia, unspecified Status: Chronic Assessment and Plan: Hold pravastatin (7) COPD (chronic obstructive pulmonary disease): Code(s): J44.9 - Chronic obstructive pulmonary disease, unspecified Status: Chronic Assessment and Plan: Continue with inhalers (8) Alcoholism: Code(s): F10.20 - Alcohol dependence, uncomplicated Status: Chronic Assessment and Plan: Continue with CIWA patient is on a Precedex d
--- NOTE | 2019-07-26 15:49 | PM.CNNEP ---
Assessment and Plan Assessment and plan (1) Hyponatremia: Code(s): E87.1 - Hypo-osmolality and hyponatremia Status: Acute (2) Small bowel obstruction, partial: Code(s): K56.600 - Partial intestinal obstruction, unspecified as to cause Status: Acute (3) Diabetes mellitus: Code(s): E11.9 - Type 2 diabetes mellitus without complications Status: Acute Assessment and Plan: . Additional Plan Cliff has hyponatremia as evidenced by his labs over the last few days. As already mentioned, he has some component of chronic hyponatremia with sodiums in the 130s range in late 2019. he has had more fluctuations in the sodium level since his hospitalization at both [facility] as well as [facility] as already mentioned as well. Recent testing has shown that his urine sodium level is around 20 arguing in favor of prerenal azotemia/volume depletion. I suspect his recent use of Bumex probably precipitated the decline in his sodium level recently in spite of the fact that he has swelling/edema in his lower extremities. This may be a situation where he is intravascularly volume depleted despite outward signs of volume overload although I wonder if perhaps maybe his lower extremity edema is somewhat chronic in general. He has already been placed on a fluid restriction but given the aforementioned urine studies, I will give a trial of IV fluids and see how he response in terms of his sodium level. Further testing will also include a TSH, cortisol level, SPEP, UPEP, along with immunofixation to r/o thyroid disease, adrenal insufficiency, and a paraproteinemia. His chronic hyponatremia may be secondary to his known history of COPD as lung disease can precipitate as well as cause low sodium levels in general. I will continue follow patient with you while remains hospitalized and make further conditions are in hospital course Thank you for allowing me to participate in the care this patient. History of Present Illness Reason for Consult Consult date: 07/26/19 Reason for consult: hyponatremia Chief Complaint Chief complaint: DKA, Small bowel obstruction History of Present Illness Narrative: The patient is a 68 year old male with a past medical history as outlined below who was diirectly admit from [place] for treatment and evaluation of DKA and a small bowel obstruction. His DKA was treated appropriately and resolved with supportive measures. General surgery was consulted with regard to the aforementioned small-bowel obstruction. General surgery recommended surgical evaluation and patient was subsequently taken to OR on 07/20 and had right hemicolectomy with removal of a possible malignant mass to relieve obstruction but pathology is negative for cancer. The patient has subsequently been doing reasonably well postoperatively with increase in oral intake and stability in pain. However, he started developing dependent edema and was started on diuretics (Bumex) to help with this issue. He still has some swelling/edema in his lower extremities but labs done recently demonstrated a significant drop in his sodium level. He he has since been started on a fluid restriction. Renal consultation was requested due to his a for mentioned hyponatremia. From review his records, the patient has had some degree of chronic hyponatremia at least during his entire hospitalization if not prior to this admission. He has sodium levels of 130-134 millimoles per L in December of 2018 and on presentation at [facility] his sodium levels down to 124 since his admission to both [facility] as well as [facility], his sodium has fluctuated in general although on mid July, his sodium level was in the normal range. Currently, the time my visit, the patient was sleeping and did not want to be disturbed. Review of Systems Review of Systems: Narrative: As per HPI. [facility] Past Medical Histo
[2019-07-26 16:24] LABS: Glucose Point of Care 82 (65-105)
[2019-07-26] MEDS: SODIUM CHLORIDE 0.9% IV 500 ML 75 ML IV CONT (18:49)
[2019-07-26] MEDS: MELATONIN 3 MG TABLET PO (20:03)
[2019-07-26] MEDS: INSULIN GLARGINE (*BKC) 100 UNITS/ML 20 UNITS SUB-Q (20:09)
[2019-07-26 21:23] LABS: Glucose Point of Care 137 (65-105)
[2019-07-27] VITALS (10 sets, daily range): BP systolic 138–155; BP diastolic 76–82; PULSE 100–108; RESP 18–20; TEMP 36.2–36.4; O2SAT 93–98
[2019-07-27] MEDS: CALCIUM CARBONATE (TUMS) 500 MG (200 MG ELEMENTAL) PO ×2 (02:59→19:53)
[2019-07-27 06:04] LABS: Hematocrit 28.4 % (42.0-52.0); Hemoglobin 9.5 g/dL (14.0-18.0); Mean Corpuscular HGB Conc 33.5 g/dl (32-36); Mean Corpuscular Hemoglobin 32.8 pg (26-34); Mean Corpuscular Volume 97.9 fl (80-100); Mean Platelet Volume 9.4 fl (7.4-10.4); Platelet Count Result 438 k/mm3 (150-375); Red Cell Distribution Width 13.3 % (11.5-14.5); White Blood Count 9.7 K/mm3 (4.5-10.0)
[2019-07-27 06:24] LABS: Alanine Aminotransferase 29 U/L (4-50); Albumin Level 3.2 g/dL (3.5-5.1); Alkaline Phosphatase 98 U/L (38-126); Aspartate Amino Transferase 52 U/L (17-59); Bilirubin,Total 0.3 mg/dL (0.2-1.3); Blood Urea Nitrogen 7 mg/dL (9-20); Calcium 9.4 mg/dL (8.4-10.2); Carbon Dioxide 29 mmol/L (22-30); Chloride 94 mmol/L (98-107); Estimated CRCL calculation 100 ml/min; Estimated Glomerular Filt Rate > 60; Glucose 113 mg/dL (75-110); Potassium 4.4 mmol/L (3.4-5.0); Sodium 129 mmol/L (137-145)
[2019-07-27 06:57] LABS: Glucose Point of Care 104 (65-105)
[2019-07-27] MEDS: PANTOPRAZOLE 40 MG TABLET PO (09:00)
[2019-07-27] MEDS: POTASSIUM CHLORIDE 20 MEQ TABLET.ER PO ×2 (09:00→17:24)
[2019-07-27] MEDS: THIAMINE HCL 200 MG/2 ML VIAL 100 MG IV PUSH (09:00)
[2019-07-27] MEDS: ENOXAPARIN 40 MG/0.4 ML SYRINGE SUB-Q (09:00)
[2019-07-27] MEDS: FOLIC ACID 1 MG/0.2 ML INJ IV PUSH (09:01)
--- NOTE | 2019-07-27 10:13 | PM.PNGS ---
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 Incision healing well and he is tolerating a regular diet. Okay for patient to be discharged home when okay with all other services. Continue gauze dressing changes for another 3 days. Follow-up with Dr. Davenpotr in 1 week. Discussed d/c instructions with the patient and questions answered. (2) Hyponatremia: Code(s): E87.1 - Hypo-osmolality and hyponatremia Status: Acute Assessment and Plan: Sodium improved to 129. Nephrology following. (3) Colon obstruction: Code(s): K56.609 - Unspecified intestinal obstruction, unspecified as to partial versus complete obstruction Status: Resolved Assessment and Plan: Resolved. S/p right hemicolectomy on 07/21/[address] Davenport. See plan above. (4) COPD (chronic obstructive pulmonary disease): Code(s): J44.9 - Chronic obstructive pulmonary disease, unspecified Status: Chronic (5) Diabetes type 1, uncontrolled: Code(s): E10.65 - Type 1 diabetes mellitus with hyperglycemia Status: Chronic Additional Plan Discussed plan of care with Dr. Davenport. Subjective Subjective Date/Time Seen: 07/27/19 10:13 Post Op day: 6 Patient reports: no new complaints, feels better, tolerating a regular diet, flatus and bowel movement Interval history: Patient feeling well today with no significant complaints other than wanting to go home. Reports his abdominal pain is well controlled. He is tolerating a regular diet and bowels continue to move. Had one BM last night and this morning. Denies nausea, vomiting, or bloating. No other complaints at this time. Review of Systems Review of Systems: All systems reviewed & are unremarkable except as noted in HPI and below Cardiovascular: Cardiovascular: Denies chest pain Respiratory: Respiratory: Denies cough and Denies dyspnea Gastrointestinal: Gastrointestinal: Reports as per HPI Exam Const: General: comfortable, no acute distress, alert and awake Orientation/consciousness: patient oriented x3 GI: Inspection: non-distended, incision (Incision clean and dry, no drainage, healing well) and obesity GI Palp: Yes Soft to palpation, Yes Tenderness to palpation present (GI) (incisional) and No Guarding due to palpation present (GI) Auscultation: normal bowel sounds Neuro: General: moves all extremities and no focal motor deficits Extrem: General: no calf tenderness and edema bilateral (BLE pitting edema 2-3+) Psych: Affect: normal affect Attitude: cooperative Insight: Good insight present (Psych) Judgement: Good judgement present (Psych) Objective Data Vital Signs Vital Signs: Vital Signs - 24 hr 07/26/19 12:00 07/26/19 16:00 07/26/19 19:49 Temperature 36.8 C 36.4 C L Pulse Rate 101 H 98 95 Respiratory Rate 20 18 Blood Pressure 150/78 H 182/87 H Pulse Oximetry 100 99 07/26/19 20:00 07/26/19 20:37 07/27/19 00:00 Temperature Pulse Rate 96 90 102 H Respiratory Rate Blood Pressure Pulse Oximetry 07/27/19 04:00 07/27/19 05:35 07/27/19 08:00 Temperature 36.4 C Pulse Rate 102 H 103 H 100 Respiratory Rate 18 Blood Pressure 155/81 H Pulse Oximetry 93 Intake/Output Intake/Output: Intake & Output 07/24/19 07/25/19 07/26/19 07/27/19 23:59 23:59 23:59 23:59 Intake Total 3030 1661 2550 600 Output Total 2470 600 Balance 560 1061 2550 600 Meds/Results Medications: Active Medications Generic Name Dose Route Start Last Admin Trade Name Freq PRN Reason Stop Dose Admin Acetaminophen 500 mg 07/23/19 11:30 Tylenol Tablet PO Q6H PRN Mild Pain (1-3) or Fever Hydrocodone Bitart/Acetaminophen 1 tab 07/23/19 11:30 07/25/19 15:06 [place] 5-325 Mg PO 1 tab Q4H PRN Administration Pain Rated 4-6 Hyd
[2019-07-27 11:25] LABS: IFOB Positive Control Positive; Immunochemical Fecal Occult Bl Positive (N)
[2019-07-27 11:48] LABS: Glucose Point of Care 173 (65-105)
[2019-07-27] MEDS: INSULIN ASPART (*BKC) 100 UNITS/ML 9 UNITS SUB-Q ×2 (11:49→17:25)
--- NOTE | 2019-07-27 12:53 | PM.PNNEP ---
Progress Note: A&P Assessment and Plan (1) Hyponatremia: Code(s): E87.1 - Hypo-osmolality and hyponatremia Status: Acute Assessment and Plan: sodium doing better at this time has chronic hyponatremia with readings in the 130s urine electrolyte suggestive of volume depletion - s/p trial of IVFs (normal saline at 75cc/hr x 500cc) yesterday with improvement in sodium TSH and cortisol level okay SPE/UPE + immunofixation pending possibly related to malignancy(?) follow trend repeat sodiums (2) Small bowel obstruction, partial: Code(s): K56.600 - Partial intestinal obstruction, unspecified as to cause Status: Acute Assessment and Plan: s/p surgurical intervention pathology with MODERATELY DIFFERENTIATED COLONIC ADENOCARCINOMA recovery ongoing and improving (3) Diabetes mellitus: Code(s): E11.9 - Type 2 diabetes mellitus without complications Status: Acute Assessment and Plan: contributing to #1 follow sugars Will continue to follow. Subjective Date/time seen: 07/27/19 12:53 Appears to be slowly improving at this time; eating and drinking okay; pain controlled and in no apparent distress; tolerated trial of IVFs yesterday Exam Narrative: Exam Narrative: General: WD/WN male in NAD Heart: normal S1 and S2; no rub Lungs: clear to auscultation Abdomen: soft, nontender, nondistended, positive bowel sounds Extremities: no cyanosis or clubbing; trace - 1+ edema Skin: warm and dry Objective Data Vital Signs Vital Signs: Vital Signs Temp Pulse Resp BP Pulse Ox 07/27/19 12:00 101 H 07/27/19 08:00 100 07/27/19 05:35 36.4 C 103 H 18 155/81 H 93 07/27/19 04:00 102 H 07/27/19 00:00 102 H 07/26/19 20:37 90 07/26/19 20:00 96 07/26/19 19:49 36.4 C L 95 18 182/87 H 99 07/26/19 16:00 36.8 C 98 20 150/78 H 100 Intake/Output Intake/Output: Intake & Output 07/24/19 07/25/19 07/26/19 07/27/19 23:59 23:59 23:59 23:59 Intake Total 3030 1661 2550 840 Output Total 2470 600 Balance 560 1061 2550 840 Meds/Results Medications: Active Medications Generic Name Dose Route Start Last Admin Trade Name Freq PRN Reason Stop Dose Admin Acetaminophen 500 mg 07/23/19 11:30 Tylenol Tablet PO Q6H PRN Mild Pain (1-3) or Fever Hydrocodone Bitart/Acetaminophen 1 tab 07/23/19 11:30 07/25/19 15:06 [place] 5-325 Mg PO 1 tab Q4H PRN Administration Pain Rated 4-6 Hydrocodone Bitart/Acetaminophen 1 tab 07/23/19 11:30 07/27/19 12:14 [place] 7.5-325 Mg PO 1 tab Q4H PRN Administration Pain Rated 7-10 Calcium Carbonate 200 mg 07/25/19 16:28 07/27/19 02:59 Tums PO 200 mg Q6H PRN Administration Indigestion Dextrose 12.5 gm 07/20/19 01:15 Dextrose 50% Syringe IV PUSH PRN PRN Hypoglycemia Protocol Enoxaparin Sodium 40 mg 07/20/19 09:00 07/27/19 09:00 Lovenox SUB-Q 40 mg DAILY CARRIE Administration Folic Acid 1 mg 07/20/19 09:00 07/27/19 09:01 Folic Acid Inj IV PUSH 1 mg QAM CARRIE Administration Glucagon 1 mg 07/20/19 01:15 Glucagon For Inj IM PRN PRN Hypoglycemia Protocol Glucose 15 gm 07/20/19 01:15 Glutose 15 PO PRN PRN Hypoglycemia Protocol Hydralazine HCl 10 mg 07/20/19 09:49 07/26/19 20:02 Apresoline Hcl Inj IV PUSH 10 mg Q6H PRN Administration Blood Pressure - High Dextrose 1,000 mls @ 100 mls/hr 07/20/19 01:15 Dextrose 5% 1,000 Ml IVPB PRN PRN Hypoglycemia Protocol Insulin Aspart 4 - 8 units 07/24/19 11:30 07/27/19 11:16 Novolog SUB-Q Not Given ACHS [facility] Protocol Insulin Aspart 9 units 07/24/19 17:00 07/27/19 11:49 Novolog 0.1 units/kg (9 units) 9 units SUB-Q Administration TIDWM CARRIE Insulin Glargine 20 units 07/20/19 21:00 07/26/19 20:09 Lantus SUB-Q 20 units HS CARRIE Admin
--- NOTE | 2019-07-27 14:02 | PM.IMPN ---
Progress Note: A&P Assessment and Plan (1) DKA (diabetic ketoacidoses): Code(s): E11.10 - Type 2 diabetes mellitus with ketoacidosis without coma Status: Acute Assessment and Plan: 68-year-old male presented emergency department with abdominal pain is found to have a obstruction possibly secondary to focal adenocarcinoma causing partial colonic obstruction. Patient was seen by general surgery recommending surgical evaluation and patient was taken to OR on 07/20 and had right hemicolectomy POD 6, and possible malignant mass was removed to relieve obstruction, pathalogy is pending, on 07/22 patient had a BM, off NG tube, was on clear liquis, on 07/23 patient was seen by surgery team started on regular diabetes diet which is tolerating, patient stats doing better been able to walk with PT patient is clinically stable some concerns of blood in the stool. Hopeful discharge tomorrow. (2) Hyponatremia: Code(s): E87.1 - Hypo-osmolality and hyponatremia Status: Acute Assessment and Plan: ? DKA, ?dehydration, ?diarrhea and gastroenteritis. (3) Hypertension: Code(s): I10 - Essential (primary) hypertension Status: Chronic Assessment and Plan: Will do p.r.n. hydralazine IV. (4) Small bowel obstruction, partial: Code(s): K56.600 - Partial intestinal obstruction, unspecified as to cause Status: Acute Assessment and Plan: Patient is 68-year-old male presented emergency department with abdominal pain is found to have a obstruction possibly secondary to focal adenocarcinoma causing partial colonic obstruction. Sp surgery (5) Seizure: Code(s): R56.9 - Unspecified convulsions Status: Acute Assessment and Plan: P.r.n. Ativan. (6) Hyperlipidemia: Code(s): E78.5 - Hyperlipidemia, unspecified Status: Chronic Assessment and Plan: Hold pravastatin (7) COPD (chronic obstructive pulmonary disease): Code(s): J44.9 - Chronic obstructive pulmonary disease, unspecified Status: Chronic Assessment and Plan: Continue with inhalers (8) Alcoholism: Code(s): F10.20 - Alcohol dependence, uncomplicated Status: Chronic Assessment and Plan: Pt is on iv thiamine. Subjective Date/time seen: 07/27/19 14:02 Interval history: 68-year-old male presented emergency department with abdominal pain is found to have a obstruction possibly secondary to focal adenocarcinoma causing partial colonic obstruction. Patient was seen by general surgery recommending surgical evaluation and patient was taken to OR on 07/20 and had right hemicolectomy POD 6, and possible malignant mass was removed to relieve obstruction, pathology is pending, on 07/22 patient had a BM, off NG tube, was on clear liquids, on 07/23 patient was seen by surgery team started on regular diabetes diet which is tolerating, patient stats doing better been able to walk with PT patient is clinically stable and pain is controlled, denies any fever or chills. Pt is eating and drinking well. Opened bowels ? blood in stools. No fevers mild abdominal pain. Pt is going home with outpatient Physical theraphy and Occupational theraphy. Review of Systems Review of Systems: All systems reviewed & are unremarkable except as noted in HPI and below Gastrointestinal: Comments: SP surgery Exam Const: General: cooperative, no acute distress, alert, awake, Physically active, anxious and uncomfortable Nutritional Appearance: average body habitus and well nourished Orientation/consciousness: oriented to person, oriented to place, oriented to time and patient oriented x3 Limitations: no limitations Resp: Effort & Inspection: normal respiratory effort Auscultation: clear to auscultation bilaterally Percussion: percussion normal Other: Bilateral fair air entry with a some rales Cardio: Palpation: normal PMI Rate: regular rate Rhythm: regular rhythm Heart sounds: S1 normal heart
[2019-07-27 16:48] LABS: Glucose Point of Care 120 (65-105)
[2019-07-27] MEDS: MELATONIN 3 MG TABLET PO (19:53)
[2019-07-27 20:08] LABS: Glucose Point of Care 83 (65-105)
[2019-07-27] MEDS: ONDANSETRON INJ 4 MG/2 ML VIAL IV PUSH (21:04)
[2019-07-28] VITALS: PULSE 99
[2019-07-28] MEDS: CALCIUM CARBONATE (TUMS) 500 MG (200 MG ELEMENTAL) PO ×2 (02:18→11:41)
[2019-07-28 04:00] VITALS: PULSE 96
[2019-07-28 05:07] VITALS: BP 146/70; PULSE 102; RESP 16; TEMP 36.3; O2SAT 96
[2019-07-28 05:56] LABS: Hematocrit 25.8 % (42.0-52.0); Hemoglobin 8.4 g/dL (14.0-18.0); Mean Corpuscular HGB Conc 32.6 g/dl (32-36); Mean Corpuscular Hemoglobin 32.3 pg (26-34); Mean Corpuscular Volume 99.2 fl (80-100); Mean Platelet Volume 9.4 fl (7.4-10.4); Platelet Count Result 425 k/mm3 (150-375); Red Cell Distribution Width 13.6 % (11.5-14.5); White Blood Count 9.4 K/mm3 (4.5-10.0)
[2019-07-28] MEDS: INSULIN ASPART (*BKC) 100 UNITS/ML SUB-Q (06:30)
[2019-07-28 06:36] LABS: Glucose Point of Care 223 (65-105)
[2019-07-28 06:38] LABS: Alanine Aminotransferase 36 U/L (4-50); Alkaline Phosphatase 95 U/L (38-126); Aspartate Amino Transferase 60 U/L (17-59); Bilirubin,Total 0.3 mg/dL (0.2-1.3); Blood Urea Nitrogen 9 mg/dL (9-20); Calcium 9.2 mg/dL (8.4-10.2); Carbon Dioxide 29 mmol/L (22-30); Chloride 92 mmol/L (98-107); Estimated CRCL calculation 100 ml/min; Estimated Glomerular Filt Rate > 60; Glucose 195 mg/dL (75-110); Potassium 4.8 mmol/L (3.4-5.0); Sodium 126 mmol/L (137-145)
[2019-07-28 07:49] LABS: Glucose Point of Care 192 (65-105)
[2019-07-28 08:00] VITALS: PULSE 97
[2019-07-28] MEDS: ENOXAPARIN 40 MG/0.4 ML SYRINGE SUB-Q (08:32)
[2019-07-28] MEDS: PANTOPRAZOLE 40 MG TABLET PO (08:32)
[2019-07-28] MEDS: POTASSIUM CHLORIDE 20 MEQ TABLET.ER PO (08:32)
[2019-07-28] MEDS: THIAMINE HCL 200 MG/2 ML VIAL 100 MG IV PUSH (08:32)
[2019-07-28 08:34] VITALS: PULSE 95; RESP 16; O2SAT 96
[2019-07-28] MEDS: INSULIN ASPART (*BKC) 100 UNITS/ML 9 UNITS SUB-Q ×2 (08:34→11:33)
[2019-07-28] MEDS: FOLIC ACID 1 MG/0.2 ML INJ IV PUSH (08:34)
--- NOTE | 2019-07-28 09:14 | PM.PNGS ---
Progress Note: A&P Assessment and Plan (1) Malignant neoplasm of transverse colon: Code(s): C18.4 - Malignant neoplasm of transverse colon Status: Chronic Assessment and Plan: obstructing tumor but node negative and no evidence of distant metastasis. Doing well from a surgical standpoint. He can be discharged and I will see him in the office in 2 weeks. He should continue dressing changes to the abdominal wound for another 3-4 days. Can be on regular diabetic diet. (2) Colon obstruction: Code(s): K56.609 - Unspecified intestinal obstruction, unspecified as to partial versus complete obstruction Status: Resolved (3) COPD (chronic obstructive pulmonary disease): Code(s): J44.9 - Chronic obstructive pulmonary disease, unspecified Status: Chronic (4) Diabetes type 1, uncontrolled: Code(s): E10.65 - Type 1 diabetes mellitus with hyperglycemia Status: Chronic Subjective Subjective Date/Time Seen: 07/28/19 09:14 Post Op day: 7 Patient reports: no new complaints, tolerating a regular diet, bowel movement and other ( Wants to go home) Review of Systems Review of Systems: All systems reviewed & are unremarkable except as noted in HPI and below Constitutional: Constitutional: Denies headache(s) ENT: Denies headache(s) Cardiovascular: Cardiovascular: Denies chest pain and Denies dyspnea Respiratory: Respiratory: Denies cough and Denies dyspnea Gastrointestinal: Gastrointestinal: Reports as per HPI Exam Const: General: comfortable and no acute distress; No confusion Orientation/consciousness: patient oriented x3 and No confusion GI: Inspection: non-distended and incision ( incision continues to heal well. Minimal serous drainage. No redness) GI Palp: Yes Soft to palpation, No Tenderness to palpation present (GI) ( minimal if any incisional tenderness), No Guarding due to palpation present (GI) and No Rebound tenderness present Auscultation: normal bowel sounds Neuro: General: patient oriented x3, no focal motor deficits and No confusion Motor exam (neuro): Tremors during motor activity present Extrem: General: no calf tenderness and no edema Psych: Appearance: disheveled Speech and movement: Clear speech present Affect: Sad affect present Attitude: cooperative Thought process: Normal thought process present Insight: Fair insight present (Psych) Judgement: Fair judgement present (Psych) Objective Data Vital Signs Vital Signs: Vital Signs - 24 hr 07/27/19 12:00 07/27/19 14:41 07/27/19 16:00 Temperature 36.2 C L Pulse Rate 101 H 102 H 108 H Respiratory Rate 20 Blood Pressure 146/82 H Pulse Oximetry 97 07/27/19 19:27 07/27/19 19:34 07/27/19 20:00 Temperature 36.4 C L Pulse Rate 100 100 102 H Respiratory Rate 20 Blood Pressure 138/76 Pulse Oximetry 97 98 07/28/19 00:00 07/28/19 04:00 07/28/19 05:07 Temperature 36.3 C L Pulse Rate 99 96 102 H Respiratory Rate 16 Blood Pressure 146/70 H Pulse Oximetry 96 Intake/Output Intake/Output: Intake & Output 07/25/19 07/26/19 07/27/19 07/28/19 23:59 23:59 23:59 23:59 Intake Total 1661 2550 1320 240 Output Total 600 275 Balance 1061 2550 1045 240 Meds/Results Medications: Active Medications Generic Name Dose Route Start Last Admin Trade Name Ariesq PRN Reason Stop Dose Admin Acetaminophen 500 mg 07/23/19 11:30 Tylenol Tablet PO Q6H PRN Mild Pain (1-3) or Fever Hydrocodone Bitart/Acetaminophen 1 tab 07/23/19 11:30 07/25/19 15:06 [place] 5-325 Mg PO 1 tab Q4H PRN Administration Pain Rated 4-6 Hydrocodone Bitart/Acetaminophen 1 tab 07/23/19 11:30 07/27/19 19:53 [place] 7.5-325 Mg PO 1 tab Q4H PRN Administration Pain Rated 7-10 Calcium Carbonate 200 mg 07/25/19 16:28 07/28/19 02:18 Tums PO 200 mg Q6H PRN Administration Indigestion Dextrose 12.5 gm 07/20/19 01:15 Dextrose 50% Syringe I
--- NOTE | 2019-07-28 11:22 | PM.DS ---
DS: Admitting Diagnosis Admitting Diagnosis Admitting Diagnosis: Abnormal findings on diagnostic imaging of other parts of digestive tract DS: Discharge Diagnosis Discharge Diagnosis (1) DKA (diabetic ketoacidoses): Code(s): E11.10 - Type 2 diabetes mellitus with ketoacidosis without coma Status: Acute Assessment and Plan: 68-year-old male presented emergency department with abdominal pain is found to have a obstruction possibly secondary to focal adenocarcinoma causing partial colonic obstruction. Patient was seen by general surgery recommending surgical evaluation and patient was taken to OR on 07/20 and had right hemicolectomy POD 7, Pt wound is clean, eats and drinking, clinically stable for discharge. FOBT is positive this is normal just after surgery. Hopeful discharge today. (2) Hyponatremia: Code(s): E87.1 - Hypo-osmolality and hyponatremia Status: Acute Assessment and Plan: ? DKA, ?dehydration, ?diarrhea and gastroenteritis. Pt seen in hospital by nephrology Pt runs around 130s sodium levels Pt is asymptomatic currently. Pt can go on 1800 ml fluid restriction Pt will need rpt BMP next week and follow with PCP (3) Hypertension: Code(s): I10 - Essential (primary) hypertension Status: Chronic Assessment and Plan: Pt to return on home medication regime (4) Small bowel obstruction, partial: Code(s): K56.600 - Partial intestinal obstruction, unspecified as to cause Status: Acute Assessment and Plan: Patient is 68-year-old male presented emergency department with abdominal pain is found to have a obstruction possibly secondary to focal adenocarcinoma causing partial colonic obstruction. Sp surgery Pathology report as below- A. RIGHT COLON WITH TERMINAL ILEUM, RIGHT HEMICOLECTOMY: - MODERATELY DIFFERENTIATED COLONIC ADENOCARCINOMA, NEARLY CIRCUMFERENTIAL, 3.0 x 3.0 x 2.3 CM, IN ASCENDING COLON, INVADING THROUGH MUSCULARIS PROPRIA, EXTENSIVELY INVOLVING PERICOLONIC FAT, AND EXTENDING TO SEROSAL SURFACE, RADIAL MARGIN, AND MUSCULARIS PROPRIA OF UNKNOWN ATTACHED ORGAN (SEE MICROSCOPIC DESCRIPTION) (SEE COMMENT). - PROXIMAL AND DISTAL RESECTION MARGINS AND ILEUM FREE OF NEOPLASM. - FIFTEEN BENIGN PERICOLONIC LYMPH NODES (0/15). - CHANGES CONSISTENT WITH REMOTE APPENDECTOMY. Comment: The previous appendectomy specimen is reviewed ([id number], 01/04/2018). The appendix had acute appendicitis with diverticula. There was no evidence of neoplasm. (5) Seizure: Code(s): R56.9 - Unspecified convulsions Status: Acute Assessment and Plan: P.r.n. Ativan. (6) Hyperlipidemia: Code(s): E78.5 - Hyperlipidemia, unspecified Status: Chronic Assessment and Plan: Hold pravastatin (7) COPD (chronic obstructive pulmonary disease): Code(s): J44.9 - Chronic obstructive pulmonary disease, unspecified Status: Chronic Assessment and Plan: Continue with inhalers (8) Alcoholism: Code(s): F10.20 - Alcohol dependence, uncomplicated Status: Chronic Assessment and Plan: Pt is on iv thiamine. transition to oral thiamine and MV DS: Summary Time Spent with Patient Time attestation: Total time spent providing and/or coordinating discharge services:40 minutes on day of dischrage Exam Narrative: Exam Narrative: Patient is comfortable sitting in the chair Resp: Effort & Inspection: normal respiratory effort Auscultation: clear to auscultation bilaterally Percussion: percussion normal Other: Bilateral fair air entry with a some rales Cardio: Palpation: normal PMI Rate: regular rate Rhythm: regular rhythm Heart sounds: S1 normal heart sound present and S2 normal heart sound present Peripheral pulses: Peripheral pulses 2+ throughout GI: Inspection: normal to inspection Auscultation: normal bowel sounds Other: Clean wound with fresh dressing : General: Yes no CVA tenderness Neuro
[2019-07-28 11:33] LABS: Glucose Point of Care 151 (65-105)
[2019-07-28 12:00] VITALS: PULSE 97
[2019-07-30 04:20] LABS: Albumin 2.7 g/dL (3.8-4.8); Alpha 1 Globulin 0.4 g/dL (0.2-0.3); Alpha 2 Globulin 0.7 g/dL (0.5-0.9); Beta 1 Globulin 0.4 g/dL (0.4-0.6); Gamma Globulin 0.4 g/dL (0.8-1.7); Protein, Total 4.8 g/dL (6.1-8.1)
[2019-08-02 23:22] LABS: Creatinine, Random Urine 43 mg/dL (20-320); Total Protein/Creatinine Ratio 326 mg/g creat (22-128)
== END 2019-07-28 15:30 | disposition home or self-care (01) | DRG 329 ==
LOC: ANHICU 07-20 11:55 → ANH3MED 07-20 16:31 → ANHICU 08-02 13:27
PROVIDERS: Emergency Medicine; Family Medicine; Internal Medicine; Internal Medicine Nephrology; Nurse Practitioner; Surgery; Admitting Provider Internal Medicine; PCP Internal Medicine; Visit Provider Family Medicine
PROC: 0DTF0ZZ Resection of Right Large Intestine, Open Approach (ICD-10-PCS; CPT 44160; principal; 2019-07-21 13:00)
DX: C18.4 Malignant neoplasm of transverse colon (principal); E11.10 Type 2 diabetes mellitus with ketoacidosis without coma; K56.699 Other intestinal obstruction unspecified as to partial versus complete obstruction; E87.1 Hypo-osmolality and hyponatremia; F10.20 Alcohol dependence, uncomplicated; J44.9 Chronic obstructive pulmonary disease, unspecified; I10 Essential (primary) hypertension; K21.9 Gastro-esophageal reflux disease without esophagitis; E78.5 Hyperlipidemia, unspecified; Z87.891 Personal history of nicotine dependence
CPT/HCPCS: 36415; 74270; 80048; 80053; 81001; 82274; 82378; 82533; 82570; 83036; 83690; 83735; 84100; 84155; 84156; 84165; 84166; 84443; 85025; 85027; 86334; 86335; 86850; 86900; 86901; 87086; 88309; 94640; 97110; 97116; 97161; 97165; 97530; 97535; A9270; C9113; J0131; J0330; J0360; J1100; J1170; J1650; J1741; J1815; J2250; J2270; J2405; J2543; J2704; J3010; J3411; J3480; J7030; J7040; J7120

== ENCOUNTER 2019-07-29 07:31 | Emergency (ER) | payer MEDICARE, OTHER, SELFPAY ==
--- NOTE | 2019-07-29 08:33 | ED.GENADULT ---
HPI - General Adult General Chief complaint: Unspecified Stated complaint: stat heart History of Present Illness HPI narrative: Cliff Rodriguez is a 68M with a complex PMH including (colon obstruction, colon cancer, etoh abuse, copd, HTN, uncontrolled DMII, GERD) that was brought in with code in progress. He had not been feeling well per family. Later he was found down an unresponsive but they thought he may have been breathing. Per EMS he was not breathing on arrival. CPR was started. He received 1 shock but other than this had been PEA the entire time. He received 3xepi en route but rhythm always remained PEA. Related Data Home Medications Medication Instructions Recorded Confirmed Adult One Daily Multivitamin 0.4 mg PO DAILY 07/04/19 07/19/19 Combivent Respimat 1 puff INHALATION QID 07/04/19 07/19/19 aspirin [Adult Low Dose Aspirin] 81 mg PO DAILY 07/04/19 07/19/19 duloxetine 20 mg PO BID 07/04/19 07/19/19 fluticasone propion-salmeterol 1 ea INHALATION BID 07/04/19 07/19/19 [Advair Diskus] loratadine 10 mg PO DAILY 07/04/19 07/19/19 montelukast 10 mg PO DAILY 07/04/19 07/19/19 pantoprazole 40 mg PO DAILY 07/04/19 07/19/19 pravastatin 10 mg PO DAILY 07/04/19 07/19/19 primidone 50 mg PO BID 07/04/19 07/19/19 verapamil 240 mg PO HS 07/04/19 07/19/19 Allergies Allergy/AdvReac Type Severity Reaction Status Date / Time No Known Allergies Allergy Unverified 01/04/18 11:39 Review of Systems Review of Systems: ROS unobtainable: Yes unobtainable due to medical condition Eyes: Comments: [facility] Social History Social History Social History: Diamante his [place]hn[employer]. 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 A desires to be a full [employer]. Patient stated he used to smoke until 2009. He drinks about 5 beers a day. No marijuana or illicit drugs. Smoking packs per day: 3 Smoking cigarettes per day: 60.0 Years smoked: 28 Smoking pack-years: 84.00 Smoking status: Former smoker Tobacco type: cigarettes Second hand tobacco smoke exposure: Yes Smoking end date: 03/08/09 Alcohol intake: current Drinks per week: 14 Substance use: never Substance use type: does not use Gender identity (if verbalized by the patient): Male Spiritual care concerns: No Agree to blood products: Yes Exam Const: Other: Was lying on bed in trauma bay with CPR in progress by EMS. Was very dusky and appeared somewhat rigid. HENMT: Other: normocephalic, atraumatic Eyes: Other: starring forward, no corneal reflex Neck: Neck: normal visual inspection Chest: Other: Had electrodes inplace Resp: Other: not breathing Cardio: Other: No heartbeat GI: Other: Had bandages over presumed surgical scar Skin: Other: Cool, dusky colored throughout Neuro: Other: Completely non-responsive Course Course Emergency Course: Cliff was brought in with CPR in progress. A rhythm check was done which showed PEA. CPR was resumed. The airway was suctioned then intubation was performed by placing the head in sniffing position and using direct laryngoscopy. Breath sounds were heard crackly but bilaterally. However, the tube slipped lower so the cuff was deflated and intubation was attempted again which resulted in esophagus. the tube was immediately removed and CPR resumed with BVM ventilation. Another dose of epinephrine was given. As it was unknown how long he had been down without a pulse and there was little sign of a good outcome from resuscitation he was pronounced at 0737. See nursing documentation for further details of code. Discharge Plan Discharge Clinical Impression: Cardiac arrest Patient Disposition: Condition: Prescriptions: No Action primidone 50 mg tablet 50 mg PO BID RF: 0 Hold Instructions: Resume on 08/02/19. NPO fluticasone propion-salmeterol [Advair Diskus] 250-50 mcg/dose blister with dev
--- NOTE | 2019-07-29 09:49 | PC.NURSE ---
see code sheet
--- NOTE | 2019-07-29 09:52 | PC.NURSE ---
released body to [facility] home
== END 2019-07-29 09:52 | disposition expired ==
PROVIDERS: Emergency Provider Family Medicine; PCP Family Medicine
DX: C18.9 Malignant neoplasm of colon, unspecified (principal); I46.9 Cardiac arrest, cause unspecified; J44.9 Chronic obstructive pulmonary disease, unspecified; I10 Essential (primary) hypertension; E11.9 Type 2 diabetes mellitus without complications
CPT/HCPCS: 92950; 99283; 99285; J0171